=== PATIENT | female | born 2005 | race Caucasian/White ===

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

== ENCOUNTER 2023-01-10 14:09 | Emergency (ER) | payer OTHER, SELFPAY ==
[2023-01-10 14:10] VITALS: BP 109/69; PULSE 78; RESP 14; TEMP 37.1; O2SAT 99; BMI 29.0
[2023-01-10] MEDS: Ketorolac 15 MG/ML Vial IV (15:29)
[2023-01-10] MEDS: 0.9% Normal Saline (1000mL) 1,000 ML 999 ML IV (15:29)
[2023-01-10] MEDS: Metoclopramide 10 MG/2 ML Vial IV (15:30)
--- NOTE | 2023-01-10 16:46 | EX.ED.DYSGE1 ---
HPI History of Present Illness Chief Complaint: Headache Narrative Narrative: Patient presents with headache for 3 days. She has chronic recurrent cephalgia, she has a history of this this feels similar. Last headache this bad was about a year ago. He has some nausea. [facility] Medical History Asthma Encounter for screening for COVID-19 IBS (irritable bowel syndrome) Migraines Home Medications pantoprazole 20 mg tablet,delayed release 20 mg PO DAILY 07/20/18 [History Last Taken Unknown] albuterol sulfate 90 mcg/actuation aerosol inhaler 1 - 2 puff inhalation Q4H PRN PRN Wheezing 10/14/18 [History Last Taken Unknown] fexofenadine 180 mg tablet 180 mg PO DAILY 10/14/18 [History Last Taken Unknown] docusate sodium 100 mg capsule 100 mg PO BID 07/02/19 [History Last Taken Unknown] magnesium oxide 400 mg PO DAILY 07/02/19 [History Last Taken Unknown] pediatric seozvqfn-jwan-pxv 1 ea PO DAILY 07/02/19 [History Last Taken Unknown] riboflavin (vitamin B2) 100 mg tablet 2 tab PO DAILY 07/02/19 [History Last Taken Unknown] sertraline 50 mg tablet 50 mg PO DAILY 07/02/19 [History Last Taken Unknown] acetaminophen 325 mg capsule (Tylenol) 325 mg PO ONCE PRN Pain 01/30/20 [History Last Taken Unknown] cyproheptadine 4 mg tablet PO 01/30/20 [History Last Taken Unknown] dapsone 7.5 % topical gel with pump topical 01/30/20 [History Last Taken Unknown] fluticasone propionate 50 mcg/actuation nasal spray,suspension 2 spray intranasal DAILY 01/30/20 [History Last Taken Unknown] ketoconazole 2 % topical cream topical 01/30/20 [History Last Taken Unknown] lactobacillus combination no.8 3 billion cell capsule (Adult Probiotic) 3,000 mmu cells PO DAILY 01/30/20 [History Last Taken Unknown] naproxen sodium 220 mg capsule 220 mg PO BID PRN 01/30/20 [History Last Taken Unknown] norethindrone-e.estradiol triphasic 0.5 mg/0.75 mg/1 mg-35 mcg tablet 1 tab PO DAILY 01/30/20 [History Last Taken Unknown] polyethylene glycol 3350 17 gram/dose oral powder 17 g PO PRN PRN Constipation 01/30/20 [History Last Taken Unknown] sumatriptan succinate 100 mg tablet mg PO 01/30/20 [History Last Taken Unknown] dicyclomine 10 mg capsule 20 mg (2 x 10 mg) PO TIDAC #20 CAPSULES 08/23/20 [Rx Last Taken Unknown] Dupixent Pen 300 mg OTHER QWEEK 02/12/21 [History Last Taken Unknown] gabapentin 02/12/21 [History Last Taken Unknown] melatonin 3 mg PO.IVFORM DAILY 02/12/21 [History Last Taken Unknown] ketorolac 10 mg tablet 10 mg PO Q6H PRN pain 3 days #12 tabs 02/15/21 [Rx Last Taken Unknown] sucralfate 1 gram tablet (Carafate) 1 g PO Q6H #28 tabs 02/18/21 [Rx Last Taken Unknown] ketorolac 10 mg tablet 10 mg PO TID PRN pain 3 days #10 tabs 06/05/21 [Rx Last Taken Unknown] Allergy/AdvReac Type Severity Reaction Status Date / Time valproic acid Allergy Unknown PT UNSURE Verified 01/10/23 14:14 OF REACTION amitriptyline Allergy Other Verified 01/10/23 14:10 divalproex sodium Allergy Rash Verified 01/10/23 14:10 [From Depakote] grass pollen Allergy Shortness Verified 01/10/23 14:10 of breath house dust Allergy Shortness Verified 01/10/23 14:10 of breath mold Allergy Shortness Verified 01/10/23 14:10 of breath diphenhydramine AdvReac Other Verified 01/10/23 14:10 [From Benadryl] Family History Other Asthma Surgical History History of tonsillectomy and adenoidectomy Social History Smoking Status: Never smoker alcohol intake: never ROS ROS ED ROS Narrative Past medical history: Reviewed Medications: Reviewed Social history: Noncontributory Review of systems: All systems negative except as indicated General: No fever Eyes: No visual changes. Some photophobia ENT: No upper airway congestion, normal voice Neck: No neck pain Cardiovascular: No chest pain Respiratory: No shortness of breath or cough Gastrointestinal: No abdominal pain, nausea vomiting or diarrhea Genitourinary: No dysuria Musculoskeletal: Denies myalgias no difficulty with ambulation Skin: No rash Neurological: No memory loss, confusion or any focal weakness. Headache as in HPI Psych: No recent behavioral changes EXAM Physical Exam Narrative Exam Narrative: Physical exam General: Well nourished, Well developed, somewhat uncomfortable Head: Normocephalic, Atraumatic Eyes: Conjunctiva not pale. Pupils are equal and reactive. ENT: Moist mucous membranes Neck: Supple, Nontender, No lymphadenopathy Cardiovascular: Regular rate, Regular rhythm Respiratory: No distress, CTA bilaterally Abdomen: Soft, Nontender, Nondistended Back: Nontender, Normal Inspection. Negative for: CVA tenderness Extremities: Nontender, No edema Skin: Normal color, No rash Neurological: Alert, Normal Strength, Normal Sensation Const Vital Signs: 01/10/23 14:10 Temperature 98.7 F Temperature Source Temporal Pulse Rate 78 Respiratory Rate 14 Blood Pressure 109/69 Blood Pressure Mean 82 Pulse Ox 99 Oxygen Delivery Method Room Air MDM MDM MDM Narrative Medical decision making narrative: Patient has chronic recurrent cephalgia. She has a normal neurological exam. Is gradual onset. Not worried about subarachnoid hemorrhage. This is likely migraine since this is what its been diagnosed with in the past. She does not meet criteria for head CT. I talked to mom also giving some of the history she is okay with not getting any imaging. Patient received a migraine cocktail and IV fluids in the emergency department. She was reevaluated and significantly improved. She was to be discharged with this quite reasonable if any changes she is to return. Discharge Plan Triage Chief Complaint: Headache ED Provider: Brooks Romero Dx/Rx/DC Orders Clinical Impression: Headache, Migraine, Nausea Instructions: ED, Migraine (Classical) Prescriptions: No Action cyproheptadine 4 mg tablet PO acetaminophen [Tylenol] 325 mg capsule 325 mg PO ONCE PRN (Reason: Pain) sumatriptan succinate 100 mg tablet PO ketoconazole 2 % cream TOPICAL dapsone 7.5 % gel with pump TOPICAL polyethylene glycol 3350 17 gram/dose powder 17 g PO PRN PRN (Reason: Constipation) Patient Comments: TAKE 17 GRAMS DISSOLVED IN WATER BY MOUTH ONCE DAILY NEEDED FOR CONSTIPATION Adult Probiotic 3 billion cell capsule 3,000 mmu cells PO DAILY Rx Instructions: administer with a meal naproxen sodium 220 mg capsule 220 mg PO BID PRN pantoprazole 20 MG tablet 20 mg PO DAILY fexofenadine 180 MG tablet 180 mg PO DAILY albuterol sulfate 1 PUFF inhaler 1 - 2 puff inhalation Q4H PRN PRN (Reason: Wheezing) norethin-e.estradiol triphasic 0.5/0.75/1 mg- 35 mcg tablet 1 tab PO DAILY pediatric pnvwvfwt-ckza-eeo 1 EACH tablet,chewable 1 ea PO DAILY docusate sodium 100 MG capsule 100 mg PO BID sertraline 50 MG tablet 50 mg PO DAILY magnesium oxide 400 MG tablet 400 mg PO DAILY riboflavin (vitamin B2) 100 MG tablet 2 tab PO DAILY fluticasone propionate 50 mcg/actuation spray,suspension 2 spray INTRANASAL DAILY dicyclomine 10 MG capsule 20 mg PO TIDAC Qty: 20 0RF gabapentin melatonin 3 mg PO.IVFORM DAILY Dupixent Pen 300 mg OTHER QWEEK Rx Instructions: every other week ketorolac 10 mg tablet 10 mg PO Q6H PRN (Reason: pain) 3 Days Qty: 12 0RF sucralfate [Carafate] 1 gram tablet 1 g PO Q6H Qty: 28 0RF ketorolac 10 mg tablet 10 mg PO TID PRN (Reason: pain) 3 Days Qty: 10 0RF Primary Care Provider: Allyn Richardson NP Referrals: Allyn Richardson NP, SERVICE CENTER REPRESENTATIVE-C [Primary Care Provider] - 3-5 Days Disposition Disposition: Home, Self Care
== END 2023-01-10 17:01 | disposition home or self-care (01) ==
PROVIDERS: Emergency Provider Emergency Medicine; PCP Nurse Practitioner Primary Care; Visit Provider Emergency Medicine
DX: G43.909 Migraine, unspecified, not intractable, without status migrainosus (principal); R11.0 Nausea
CPT/HCPCS: 96361; 96374; 96375; J7030; A4216

== ENCOUNTER 2025-01-21 15:04 | Emergency (ER) | payer OTHER, SELFPAY ==
[2025-01-21 15:04] VITALS: BP 130/82; PULSE 115; RESP 18; TEMP 36.9; O2SAT 96
[2025-01-21 15:33] VITALS: BMI 32.6
--- NOTE | 2025-01-21 15:37 | EX.ED.DYSGE1 ---
HPI History of Present Illness Chief Complaint: Headache Narrative Narrative: Chief complaint and HPI: 19-year-old female with past medical history of migraines, anxiety, IBS presents for evaluation of migraine. Patient states her migraines always worsen in the fall. She states they are often prolonged. Patient states she has been having a waxing and waning migraine for the past 4 weeks. She has been taking her migraine medication. Last took sumatriptan yesterday. States she has been unable to get a hold of her neurologist. Associated symptoms are nausea, photophobia, occasional phonophobia. She states this feels like her typical migraine. Denies any trauma. Denies any fever, chills, URI symptoms, lightheadedness, syncope, weakness, numbness/tingling, neck pain, chest pain, shortness of breath. Review of systems: See HPI Medications: As listed on the chart Allergies: As listed on the chart PFSH: Per chart Vital signs: As listed on the chart. Reviewed. Physical exam: Gen: A&O x3, NAD but sitting with the lights off Head: Normocephalic, atraumatic Eyes: No sclera icterus, conjunctiva clear, PERRL, EOMI ENT: Moist mucous membranes Neck: Trachea midline, full range of motion CV: RRR, no murmurs Resp: Lungs CTA BL, no w/r/c Musc: Full ROM, no deformity Skin: Warm, dry Neuro: Alert, oriented, grossly intact, sensation intact Psych: Cooperative, appropriate mood and affect [facility] (Updated 01/21/25 @ 16:[address] Antonio Copeland, DO) Panic GILBERTO (generalized anxiety disorder) Encounter for screening for COVID-19 Asthma IBS (irritable bowel syndrome) Migraines Home Medications ?Medication ?Instructions ?Recorded ?Last Taken ?Type albuterol sulfate 90 mcg/actuation 1 - 2 puff inhalation Q4H PRN PRN 10/14/18 Unknown History aerosol inhaler Wheezing docusate sodium 100 mg capsule 100 mg PO BID 07/02/19 Unknown History magnesium oxide 400 mg PO DAILY 07/02/19 Unknown History riboflavin (vitamin B2) 100 mg 2 tab PO DAILY 07/02/19 Unknown History tablet acetaminophen 325 mg capsule 325 mg PO ONCE PRN Pain 01/30/20 Unknown History (Tylenol) fluticasone propionate 50 2 spray intranasal DAILY 01/30/20 Unknown History mcg/actuation nasal spray,suspension lactobacillus combination no.8 3 3,000 mmu cells PO DAILY 01/30/20 Unknown History billion cell capsule (Adult Probiotic) naproxen sodium 220 mg capsule 220 mg PO BID PRN alston 01/30/20 Unknown History norethindrone-e.estradiol 1 tab PO DAILY 01/30/20 Unknown History triphasic 0.5 mg/0.75 mg/1 mg-35 mcg tablet sumatriptan succinate 100 mg tablet mg PO 01/30/20 Unknown History Dupixent Pen 300 mg OTHER QWEEK 02/12/21 Unknown History melatonin 3 mg PO.IVFORM DAILY 02/12/21 Unknown History omeprazole 20 mg capsule,delayed 20 mg PO QDAY 08/30/24 Unknown History release rimegepant 75 mg disintegrating mg PO 08/30/24 Unknown History tablet (Nurtec ODT) buspirone 15 mg tablet 15 mg PO BID 12/06/24 Unknown History duloxetine 60 mg capsule,delayed 60 mg PO DAILY #90 caps 12/06/24 Unknown Rx release fexofenadine 180 mg tablet 180 mg PO DAILY 01/21/25 Unknown History (Bri Allergy) qjrcrcaeanrd-Wm-thtj-minerals 27 tab PO 01/21/25 Unknown History mg-0.4 mg tablet (Women's Daily Formula) Allergy/AdvReac Type Severity Reaction Status Date / Time valproic acid Allergy Unknown PT UNSURE Verified 12/06/24 11:23 OF REACTION amitriptyline Allergy Other Verified 12/06/24 11:23 divalproex sodium (From Allergy Rash Verified 12/06/24 11:23 Depakote) grass pollen Allergy Shortness Verified 12/06/24 11:23 of breath house dust Allergy Shortness Verified 12/06/24 11:23 of breath mold Allergy Shortness Verified 12/06/24 11:23 of breath diphenhydramine (From AdvReac Other Verified 12/06/24 11:23 Benadryl) Family History (Updated 01/21/25 @ 15:35 by Palak Niño) Other Anxiety Asthma Chronic abdominal pain Migraines Surgical History (Updated 03/31/24 @ 13:18 by Monalisa Hilliard) Hx of breast reduction, elective History of tonsillectomy and adenoidectomy Social History Smoking Status: Never smoker alcohol intake: never EXAM Physical Exam Const Vital Signs: 01/21/25 15:04 Temperature 98.4 F Temperature Source Oral Pulse Rate 115 H Respiratory Rate 18 Blood Pressure 130/82 H Blood Pressure Mean 98 Pulse Ox 96 Oxygen Delivery Method Room Air MDM MDM MDM Narrative Medical decision making narrative: 19-year-old female with past medical history of migraines, anxiety, IBS presents for evaluation of migraine. Patient states her migraines always worsen in the fall. She states they are often prolonged. Patient states she has been having a waxing and waning migraine for the past 4 weeks. She has been taking her migraine medication. Last took sumatriptan yesterday. States she has been unable to get a hold of her neurologist. Headache feels like her typical migraine. Denies acute onset of headache. This is neither the worst headache that she has ever experienced, nor was the onset timed with exertional activity or trauma. Patient has not experienced any fever, unusual neck pain or stiffness, syncope, or near syncope. She denies any numbness, tingling, or weakness of the extremities. I do not think any imaging or laboratory workup is needed at this time. Patient in agreement. Patient will be treated with migraine cocktail as well as Imitrex. Patient will be reevaluated. On reevaluation, patient states her headache has almost completely resolved. Patient stable to discharge home. Recommend avoiding triggers. Follow-up with neurologist and primary care physician. She confirmed understand the plan. Patient will discharge home. Impression: 1. Migraine 2. History of migraines Discharge Plan Triage Chief Complaint: Headache ED Provider: Antonio Copeland Dx/Rx/DC Orders Clinical Impression: Migraine Instructions: ED, Migraine (Classical) Prescriptions: No Action acetaminophen [Tylenol] 325 mg capsule 325 mg PO ONCE PRN (Reason: Pain) sumatriptan succinate 100 mg tablet PO Adult Probiotic 3 billion cell capsule 3,000 mmu cells PO DAILY Rx Instructions: administer with a meal naproxen sodium 220 mg capsule 220 mg PO BID PRN (Reason: alston) Nurtec ODT 75 mg tablet,disintegrating PO omeprazole 20 mg capsule,delayed release(DR/EC) 20 mg PO QDAY buspirone 15 mg tablet 15 mg PO BID duloxetine 60 mg capsule,delayed release(DR/EC) 60 mg PO DAILY Qty: 90 1RF albuterol sulfate 1 PUFF inhaler 1 - 2 puff inhalation Q4H PRN PRN (Reason: Wheezing) norethin-e.estradiol triphasic 0.5/0.75/1 mg- 35 mcg tablet 1 tab PO DAILY docusate sodium 100 MG capsule 100 mg PO BID magnesium oxide 400 MG tablet 400 mg PO DAILY riboflavin (vitamin B2) 100 MG tablet 2 tab PO DAILY fluticasone propionate 50 mcg/actuation spray,suspension 2 spray INTRANASAL DAILY melatonin 3 mg PO.IVFORM DAILY Dupixent Pen 300 mg OTHER QWEEK Rx Instructions: every other week fexofenadine [Bri Allergy] 180 mg tablet 180 mg PO DAILY Women's Daily Formula 27-0.4 mg tablet PO Primary Care Provider: Allyn Richardson NP Referrals: Follow-up with your neurologist [Other] - 3-5 Days Allyn Richardson NP, [employer] [Primary Care Provider, Family Practice] - 3-5 Days Activity Restrictions/Additional Instructions: Follow-up with your neurologist and primary care physician. Return back to ED if symptoms change or worsen. Print Language: Indonesian Disposition Disposition: Home, Self Care
--- OUTSIDE RECORDS SUMMARY | 2025-01-21 15:46 | XMS RPT_ITS | CCD ---
Author Organization [facility] Inform ion Partnership [facility] Care Team Providers Care Email Marketing Coordinator Name Role Phone DEBRA SHELL REPRINT OPERATOR-BACKEND DEVELOPER, ALLYN S Primary Care Physicia n Demian Whittaker DO Primary Care Provider MD Mando Conde Attending Unavailable No Family, Physician Primary Care Unavailable No Family, Physician Primary Care Unavailable No Family, Physician Primary Care Unavailable No Family, Physician Primary Care Unavailable Huckabay SHELL REPRINT OPERATOR-BACKEND DEVELOPER, Allyn S Primary Care Provider DEBRA SHELL REPRINT OPERATOR-BACKEND DEVELOPER, ALLYN S Primary Care Unava ilable BRODERICK CARDOZO, GILBERTO Garay Attending Unavail able MACARIO SHELL REPRINT OPERATOR-BACKEND DEVELOPER, YULIYA Mason Attending Un available DEBRA SHELL REPRINT OPERATOR-BACKEND DEVELOPER, ALLYN S Primary Care Unava ilable DEBRA SHELL REPRINT OPERATOR-BACKEND DEVELOPER, ALLYN S Attending Unava ilable DEBRA SHELL REPRINT OPERATOR-BACKEND DEVELOPER, ALLYN S Primary Care Unava ilable NAVJOT CARDOZO, DR ANTONIA Skaggs Attending Unavail able DEBRA SHELL REPRINT OPERATOR-BACKEND DEVELOPER, ALLYN S Primary Care Unava ilable DEBRA, ALLYN S Primary Care Unavailable JAILYN FELICIANO Attending Unavailable KLAUS MOSCOSO Attending Unavailable DEBRA, ALLYN S Primary Care Unavailable JAILYN FELICIANO Attending Unavailable DEBRA, ALLYN S Referring Unavailable DEBRA, ALLYN S Primary Care Unavailable Huckabay ASSISTANT BROKER, Allyn Primary Care Unavailable Dedrick Guerrero Attending Unavailable Debra ASSISTANT BROKER, Allyn Primary Care Unavailable Dedrick Guerrero Attending Unavailable Debra ASSISTANT BROKER, Allyn Primary Care Unavailable Dedrick Guerrero Attending Unavailable Huckabay ASSISTANT BROKER, Allyn Primary Care Unavailable Dedrick Guerrero Attending Unavailable DEBRA SHELL REPRINT OPERATOR-BACKEND DEVELOPER, ALLYN S Attending Unava ilable DEBRA SHELL REPRINT OPERATOR-BACKEND DEVELOPER, ALLYN S Primary Care Unava ilable DEBRA SHELL REPRINT OPERATOR-BACKEND DEVELOPER, ALLYN S Primary Care Unava ilable DEBRA SHELL REPRINT OPERATOR-BACKEND DEVELOPER, ALLYN S Attending Unava ilable Allergies Allergy Classification Reported Allergen(s) Allergy Type Date of Onset Reaction(s) Facility (11 sources) Amitriptyline; Translations: [amitriptyline] Drug Allergy 01-09-20 21 Unknown (qualifier value), Other (See Comments) [facility] (9 sources) diphenhydrAMINE; Translations: [diphenhydramine] Drug Allergy 01-09-20 21 Unknown (qualifier value) [facility] (4 sources) Grass pollen; Translations: [grass pollen] Allergy to substance 06-05-19 22 Shortness of breath [facility] (3 sources) house dust allergenic extract Drug Allergy 06-05-19 22 Shortness of breath [facility] (3 sources) Mold Extract Drug Allergy 06-05-19 22 Shortness of breath [facility] (3 sources) Valproate Drug Allergy 06-05-19 22 Rash [facility] (2 sources) Apple extract Drug Allergy 01-09-20 21 Diarrhea [facility] (2 sources) diphenhydrAMINE Drug Allergy 01-09-20 21 Other (See Comments) [facility] (3 sources) Valproate; Translations: [VALPROIC ACID] Drug Allergy 12-27-19 21 Rash [facility] Work Phone: (3 sources) Chicken Allergy; Translations: [CHICKEN ALLERGY] Propensity to adverse reactions 01-09-20 21 Diarrhea [facility] (1 source) Valproate Drug Allergy 01-11-20 23 PT UNSURE OF REACTION [facility] (1 source) Apple juice; Translations: [APPLE JUICE] Propensity to adverse reactions to drug (disorder) 01-09-20 21 [facility] Repository (1 source) Amitriptyline Drug Allergy 12-07-19 [facility] (1 source) diphenhydrAMINE Drug Allergy 12-07-19 [facility] (1 source) house dust allergenic extract Drug Allergy 12-07-19 [facility] (1 source) Mold Extract Drug Allergy 12-07-19 [facility] (1 source) Valproate Drug Allergy 12-07-19 [facility] (1 source) Valproate Drug Allergy 12-07-19 [facility] Medications Current Medications Medication Drug Class(es) Dates Sig (Normalized) Sig (Original) [id number] 200 actuat albuterol 0.09 mg/actuat metered dose inhaler (12 sources) beta2-Adrenergic Agonist Start: 10-27-2019 take 2 puff(s) by inhalation every four hours as needed for wheezing ProAir HFA MDI (90 mcg/inh) inhalation aerosol 2 puff(s), Inhalation, q4h, PRN as needed for wheezing, # 8.5 gram(s), 0 Refill(s) Start Date: 10/27/19 Status: Ordered Medication Dispense Status: Completed Quantity: 8.5 Unit: g Total Allowed Fills: 1 Fills Dispensed: 0 Start: 10-27-2019 take 2 puff(s) by in halation every four hours as needed for wheezing ProAir HFA MDI (90 mcg/inh) inhalation aerosol 2 puff(s), Inhalation, q4h, PRN as needed for wheezing, # 8.5 gram(s), 0 Refill(s) Start Date: 10/27/19 Status: Ordered Start: 10-14-2018 take 1 puff(s) by in halation every four hours as needed Albuterol Sulfate Active 1 - 2 PUFF INHALATION EVERY 4 HOURS NEEDED October 14, 2018 12:00am albuterol (PROAI R RESPICLICK) 108 (90 Base) MCG/ACT inhaler Inhale into the lungs every 6 hours as needed for Wheezing 0 Active ALBUTEROL INHALA TION Inhale as instructed. 0 Active Comment on above: Inhale as instructed . Bri Allergy (2 sources) Start: 9 take 1 dose by mouth once daily Bri Allergy Dose : 180 mg =, Oral, qDay, 0 Refill(s) Start Date: 03/01/19 Status: Ordered busPIRone hydrochloride 15 mg oral tablet (6 sources) Start: 4 End: busPIRone 15 mg oral tablet Dose : 15 mg = 1 tab(s), Oral, BID, # 180 tab(s), 3 Refill(s), Pharmacy: [facility], 168, cm, 10/04/24 11:34:00 EDT, Height, kg, 10/04/24 11:43:00 EDT, Dosing Weight Start Date: 11/29/24 Stop Date: 11/24/25 Status: Ordered Medication Dispense Status: Completed Quantity: 180.0 Unit: tab(s) Total Allowed Fills: 4 Fills Dispensed: 0 Start: 05-29-2021 End: 05-24-2022 busPIRone 10 mg oral tablet Dose : 10 mg = 1 tab(s), Oral, BID, # 180 tab(s), 3 Refill(s), Pharmacy: [facility]/pharmacy #[id number], 166, cm, 04/23/21 14:18:00 EST, Height, kg, 04/23/21 14:18:00 EST, Dosing Weight Start Date: 05/29/21 Stop Date: 05/24/22 Status: Ordered cetirizine hydrochloride 10 mg oral tablet (2 sources) Histamine-1 Receptor Antagonist Start: 08-11-2024 take 1 mg by mouth once daily Zyrtec 10 mg oral tablet mg = tab(s), Oral, qDay, 0 Refill(s) Start Date: 08/11/24 Status: Ordered Medication Dispense Status: Completed Total Allowed Fills: 1 Fills Dispensed: 0 Clascoterone (WINLEVI) 1 % CREA (1 source) Clascoterone (WINLEVI) 1 % CREA Apply to affected area 0 Active Dapsone (5 sources) Sulfone Start: 04-22-2020 apply 1 dose topically once daily Aczone 7.5% topical gel Dose = 1 estee, Topical, qDay, # 60 gram(s), 0 Refill(s) Start Date: 04/22/20 Status: Ordered Start: 01-30-2020 Dapsone Active TOPICAL January 30, 2020 12:00am Bentyl (9 sources) Anticholinergic Start: 11-28-2020 Bentyl mg =, 0 Refill(s) Start Date: 11/28/20 Status: Ordered Start: 08-27-2020 take 2 capsules by m outh three times daily as needed for pain dicyclomine (BENTYL) 10 MG capsule Take 2 Capsules (20 mg) by mouth 3 times daily as needed (pain) 120 Capsule 3 08/27/2020 Active Start: 08-23-2020 take 20 mg by mouth three times daily before mealtime Dicyclomine Active 20 MG PO THREE TIMES DAILY BEFORE MEALS August 23, 2020 12:00am docusate sodium 100 mg oral capsule (11 sources) Start: 07-04-2021 Colace 100 mg oral capsule See Instructions, 100mg every morning 100mg Thursday, , Thursday nights 200mg Thursday, Thursday, Thursday, Thursday nights, # 216 cap(s), 3 Refill(s), Pharmacy: [facility]/pharmacy #[id number], 166, cm, 04/23/21 14:18:00 EST, Height, kg, 04/23/21 14:18:00 EST, Dosing Weight Start Date: 07/04/21 Status: Ordered Medication Dispense Status: Completed Quantity: 216.0 Unit: cap(s) Total Allowed Fills: 4 Fills Dispensed: 0 Start: 07-02-2019 take 100 mg by mouth twice altagracia ly Docusate Sodium Active 100 MG PO TWICE A DAY July 02, 2019 12:00am DULoxetine 60 mg delayed release oral capsule (2 sources) Serotonin and Norepinephrine Reuptake Inhibitor Start: 08-11-2024 take 1 mg by mouth once daily Cymbalta 60 mg oral delayed release capsule mg = cap(s), Oral, qDay, 0 Refill(s) Start Date: 08/11/24 Status: Ordered Medication Dispense Status: Completed Total Allowed Fills: 1 Fills Dispensed: 0 2 ml dupilumab 150 mg/ml prefilled syringe (6 sources) Interleukin-4 Receptor alpha Antagonist Start: 01-20-2020 inject 1 dose by subcutaneous injection every other week Dupixent 300 mg/2 mL subcutaneous solution Dose : 300 mg = 2 mL, Subcutaneous, q2wk, rotate injection sites, # 4 mL, 0 Refill(s) Start Date: 04/22/20 Status: Ordered Medication Dispense Status: Completed Quantity: 4.0 Unit: mL Total Allowed Fills: 1 Fills Dispensed: 0 Dupixent 300 mg/2 mL subcutaneous solution (2 sources) Start: 04-22-2020 inject 1 dose by subcutaneous injection every other week Dupixent 300 mg/2 mL subcutaneous solution Dose : 300 mg = 2 mL, Subcutaneous, q2wk, rotate injection sites, # 4 mL, 0 Refill(s) Start Date: 04/22/20 Status: Ordered Dupixent Pen (3 sources) Start: 02-12-2021 Dupixent Pen Active 300 MG OTHER EVERY WEEK February 12, 2021 12:00am every other week {21 (Ethinyl Estradiol 0.03 MG / Levonorgestrel 0.15 MG Oral Tablet) / 7 (Inert Ingredients 1 MG Oral Tablet) } Pack [Cher Day] (5 sources) Progestin, Estrogen, Progestin-containin g Intrauterine Device Start: 08-11-2024 take 1 tablet by mouth once daily [employer] 0.15 mg-30 mcg oral tablet Dose = 1 tab(s), Oral, Daily, # 28 tab(s), 11 Refill(s), Pharmacy: [facility], 168.6, cm, 08/11/24 8:20:00 EDT, Height, kg, 08/11/24 8:20:00 EDT, Dosing Weight Start Date: 08/11/24 Status: Ordered Medication Dispense Status: Completed Quantity: 28.0 Unit: tab(s) Total Allowed Fills: 12 Fills Dispensed: 0 Start: 08-11-2024 take 1 tablet by hannah th once daily Cher 0.15 mg-30 mcg oral tablet Dose = 1 tab(s), Oral, Daily, # 28 tab(s), 11 Refill(s), Pharmacy: [facility], 168.6, cm, 08/11/24 8:20:00 EDT, Height, kg, 08/11/24 8:20:00 EDT, Dosing Weight Start Date: 08/11/24 Status: Ordered Quantity: 28.0 Unit: tab(s) Repeat number: 12 Start: 11-15-2021 take 1 tablet by hannah th twice daily, then take 1 tablet by mouth once daily Sronyx 100 mcg-20 mcg oral tablet TAKE ONE TABLET TWICE DAILY UNTIL BLEEDING STOPS, THEN TAKE ONE TABLET PER DAY. Start Date: 11/15/21 Status: Ordered take 0.1-20 tablets by mouth once levonorgestrel-ethinyl estradiol (AVIANE) 0.1-20 MG-MCG per tablet Take 1 Tablet by mouth daily 0 Active Norethin-E.Estradiol Triphasic (7 sources) Estrogen Start: 01-30-2020 take 1 tablet by mouth once daily Norethin-E.Estradiol Triphasic Active 1 TABLET PO DAILY January 30, 2020 11:42am Start: 12-27-2018 Pirmella 1/35 oral tablet 0 Refill(s) Start Date: 12/27/18 Status: Ordered Start: 10-14-2018 End: 01-30-2020 Norethin-E.Estradiol Triphas ic Discontinued 1 EACH PO DAILY October 14, 2018 12:00am January 30, 2020 11:54am fexofenadine hydrochloride 180 mg oral tablet (7 sources) Histamine-1 Receptor Antagonist Start: 10-14-2018 take 180 mg by mouth once daily Fexofenadine Active 180 MG PO DAILY October 14, 2018 12:00am Flonase 50 mcg/inh nasal spray (2 sources) Start: 12-27-2018 take 1 dose nasal route once daily in the morning Flonase 50 mcg/inh nasal spray Dose = 2 spray(s), Nostril, each, qAM, 0 Refill(s) Start Date: 12/27/18 Status: Ordered fluticasone propionate 0.05 mg/actuat metered dose nasal spray (12 sources) Corticosteroid Start: 07-02-2019 End: 01-30-2020 Fluticasone Propionate Active 2 SPRAY INTRANASAL DAILY January 30, 2020 11:41am Start: 12-27-2018 take 1 dose nasal ro kletsel dehe wintun once daily in the morning as needed Flonase 50 mcg/inh nasal spray Dose = 2 spray(s), Nostril, each, qAM, PRN Allergy symptoms, 0 Refill(s) Start Date: 12/27/18 Status: Ordered Medication Dispense Status: Completed Total Allowed Fills: 1 Fills Dispensed: 0 fluticasone (JAE NASE) 50 MCG/ACT nasal spray 2 Sprays by Each Nare route as needed for Allergies 0 Active gabapentin 300 mg oral capsule (7 sources) Anti-epileptic Agent Start: 12-20-2021 take 1 capsule by mouth twice daily gabapentin (NEURONTIN) 300 MG capsule Take 1 Capsule (300 mg) by mouth 2 times daily 60 Capsule 5 12/20/2021 Active Start: 04-03-2021 gabapentin 300 mg oral capsule Dose : 300 mg = 1 cap(s), Oral, BID, # 60 cap(s), 0 Refill(s), 74.9 Start Date: 04/03/21 Status: Ordered Start: 02-12-2021 gabapentin Act sedrick February 12, 2021 12:00am High Potency Multivitamin or al tablet (4 sources) Start: 08-20-2021 High Potency M ultivitamin oral tablet See Instructions, RenewLife Ultimate Beba Extra Care Probiotic 1 tablet daily, # 90 tab(s), 3 Refill(s), Pharmacy: [facility]/pharmacy #[id number], 166, cm, 04/23/21 14:18:00 EST, Height, kg, 04/23/21 14:18:00 EST, Dosing Weight Start Date: 08/20/21 Status: Ordered Medication Dispense Status: Completed Quantity: 90.0 Unit: tab(s) Total Allowed Fills: 4 Fills Dispensed: 0 Start: 08-20-2021 High Potency M ultivitamin oral tablet See Instructions, RenewLife Ultimate Beba Extra Care Probiotic 1 tablet daily, # 90 tab(s), 3 Refill(s), Pharmacy: [facility]/pharmacy #[id number], 166, cm, 04/23/21 14:18:00 EST, Height, kg, 04/23/21 14:18:00 EST, Dosing Weight Start Date: 08/20/21 Status: Ordered Quantity: 90.0 Unit: tab(s) Repeat number: 4 Start: 08-20-2021 take 1 tablet by hannah once daily High Potency Multivitamin oral tablet See Instructions, RenewLife Ultimate Beba Extra Care Probiotic 1 tablet daily, # 90 tab(s), 3 Refill(s), Pharmacy: [facility]/pharmacy #[id number], 166, cm, 04/23/21 14:18:00 EST, Height, kg, 04/23/21 14:18:00 EST, Dosing Weight Start Date: 08/20/21 Status: Ordered hydrOXYzine hydrochloride 25 mg oral tablet (2 sources) Antihistamine Start: 04-03-2021 hydrOXYzine hydrochloride 25 mg oral tablet Dose : 25 mg = 1 tab(s), Oral, QID, PRN as needed for anxiety, # 40 tab(s), 0 Refill(s) Start Date: 04/03/21 Status: Ordered ketoconazole 20 mg/ml topical cream (3 sources) Azole Antifungal Start: 01-30-2020 Ketoconazole Active TOPICAL January 30, 2020 12:00am ketorolac tromethamine 10 mg oral tablet (6 sources) Nonsteroidal Anti-inflammatory Drug, Cyclooxygenase Inhibitor Start: 06-05-2021 take 10 mg by mouth three times daily Ketorolac Active 10 MG PO THREE TIMES A DAY 10 June 05, 2021 1:00am Start: 02-15-2021 take 10 mg by mouth every six hours Ketorolac Active 10 MG PO EVERY 6 HOURS 03 22February 15, 2021 12:00am Lactobacillus acidophilus (2 sources) Lactobacillus (P ROBIOTIC ACIDOPHILUS PO) Take by mouth daily 0 Active Lactobacillus Combination No.8 (Adult Probiotic) 3 billion cell capsule (3 sources) Start: 01-30-2020 take 3 capsules by mouth once daily Lactobacillus Combination No.8 (Adult Probiotic) 3 billion cell capsule Active 3000 MMU CELLS PO DAILY January 30, 2020 12:00am administer with a meal magnesium oxide 400 mg oral tablet (10 sources) Start: 06-21-2019 magnesium oxide 400 mg (240 mg elemental magnesium) oral tablet Dose : 400 mg = 1 tab(s), Oral, qDay, # 100 tab(s), 0 Refill(s) Start Date: 06/21/19 Status: Ordered Medication Dispense Status: Completed Quantity: 100.0 Unit: tab(s) Total Allowed Fills: 1 Fills Dispensed: 0 melatonin 5 mg oral tablet (11 sources) Start: 12-03-2022 Melatonin 5 mg oral tablet Dose : 5 mg = 1 tab(s), Oral, qHS, PRN as needed for insomnia, # 60 tab(s), 0 Refill(s) Start Date: 12/03/22 Status: Ordered Medication Dispense Status: Completed Quantity: 60.0 Unit: tab(s) Total Allowed Fills: 1 Fills Dispensed: 0 Start: 11-28-2020 melatonin qHS, 0 Refill(s) Start Date: 11/28/20 Status: Ordered Start: 08-29-2020 End: 06-29-2022 take 3 mg by mouth once daily melatonin Active 3 MG PO .IVFORM DAILY February 12, 2021 12:00am Multiple Vitamins-Iron (MULTIVITAMIN/IRON PO) (2 sources) Multiple Vitamin s-Iron (MULTIVITAMIN/IRON PO) Take by mouth daily 0 Active Multivitamin preparation (1 source) Start: 2024 take 1 tablet by mouth once daily Multivitamin Dose = 1 tab(s), Oral, Daily, with iron, 0 Refill(s) Start Date: 12/07/24 Status: Ordered Medication Dispense Status: Completed Total Allowed Fills: 1 Fills Dispensed: 0 Multivitamin with Iron (4 sources) Start: 2019 take 1 tablet by mouth once daily Multivitamin with Iron Dose = 1 tab(s), Oral, Daily, 0 Refill(s) Start Date: 04/21/19 Status: Ordered Naproxen (9 sources) Nonsteroidal Anti-inflammatory Drug Start: 2020 naproxen naproxen, 0 Refill(s), 66 Start Date: 11/28/20 Status: Ordered Medication Dispense Status: Completed Total Allowed Fills: 1 Fills Dispensed: 0 Start: 11-28-2020 naproxen napro xen, 0 Refill(s), 66 Start Date: 11/28/20 Status: Ordered Repeat number: 1 Start: 11-28-2020 naproxen napro xen, 0 Refill(s), 66 Start Date: 11/28/20 Status: Ordered Start: 01-30-2020 take 220 mg by mouth twice daily Naproxen Sodium Active 220 MG PO TWICE A DAY January 30, 2020 12:00am omeprazole 20 mg oral tablet (2 sources) Proton Pump Inhibitor Start: 08-20-2023 take 1 dose by mouth once daily omeprazole Dose : 20 mg =, Oral, qDay, 0 Refill(s) Start Date: 08/20/23 Status: Ordered Medication Dispense Status: Completed Total Allowed Fills: 1 Fills Dispensed: 0 ondansetron 4 mg disintegrating oral tablet (7 sources) Serotonin-3 Receptor Antagonist Start: 04-22-2020 ondansetron 4 mg oral tablet, disintegrating Dose : 4 mg = 1 tab(s), Oral, q4hr, PRN Nausea/Vomiting, # 10 tab(s), 0 Refill(s) Start Date: 04/22/20 Status: Ordered Medication Dispense Status: Completed Quantity: 10.0 Unit: tab(s) Total Allowed Fills: 1 Fills Dispensed: 0 Start: 12-30-2019 Zofran 4 mg or al tablet Dose : 4 mg = 1 tab(s), Oral, q6h, PRN Nausea/Vomiting, # 10 tab(s), 0 Refill(s), Cephalgia Start Date: 12/30/19 Status: Ordered ondansetron 4 mg oral tablet, disintegrating (2 sources) Start: 04-22-2020 ondansetron 4 mg oral tablet, disintegrating Dose : 4 mg = 1 tab(s), Oral, q4hr, PRN Nausea/Vomiting, # 10 tab(s), 0 Refill(s) Start Date: 04/22/20 Status: Ordered pantoprazole 20 mg delayed release oral tablet (9 sources) Proton Pump Inhibitor Start: 07-20-2018 take 20 mg by mouth once daily Pantoprazole Active 20 MG PO DAILY July 20, 2018 12:00am Pediatric Clpqhjft-Pete-Sps (3 sources) Start: 07-02-2019 Pediatric Muaaadhn-Nmjl-Vsj Active 1 EACH PO DAILY July 02, 2019 12:00am Pirmella 1/35 oral tablet (2 sources) Start: 12-27-2018 Pirmella 1/35 oral tablet 0 Refill(s) Start Date: 12/27/18 Status: Ordered polyethylene glycol 3350 33813 mg powder for oral solution (3 sources) Osmotic Laxative Start: 01-30-2020 Polyethylene Glycol 3350 Active 17 GM PO NEEDED January 30, 2020 12:00am Probiotic (2 sources) Start: 02-15-2019 Probiotic Oral, BID, 0 Refill(s) Start Date: 02/15/19 Status: Ordered riboflavin 100 mg oral tablet (10 sources) Start: 10-25-2021 take 2 tablets by mouth twice daily vitamin B-2 (RIBOFLAVIN) 100 MG tablet Take 2 Tablets (200 mg) by mouth 2 times daily 120 Tablet 11 10/25/2021 Active Start: 07-02-2019 take 2 tablets by [facility] once daily Riboflavin (Vitamin B2) Active 2 TABLET PO DAILY July 02, 2019 12:00am Start: 06-21-2019 take 1 mg by mouth twice daily riboflavin 100 mg oral tablet mg = tab(s), Oral, BID, 0 Refill(s) Start Date: 06/21/19 Status: Ordered Medication Dispense Status: Completed Total Allowed Fills: 1 Fills Dispensed: 0 rimegepant 75 mg disintegrating oral tablet (2 sources) Start: 09-15-2024 Nurtec ODT 75 mg oral tablet, disintegrating Dose : 75 mg = 1 tab(s), Oral, Every other day, 0 Refill(s) Start Date: 09/15/24 Status: Ordered Medication Dispense Status: Completed Total Allowed Fills: 1 Fills Dispensed: 0 sertraline 100 mg oral tablet (9 sources) Serotonin Reuptake Inhibitor Start: 01-24-2021 End: 06-29-2022 sertraline 100 mg oral tablet Dose : 150 mg = 1.5 tab(s), Oral, qDay, # 135 tab(s), 3 Refill(s), Pharmacy: [facility]/pharmacy #[id number], 166, cm, 04/23/21 14:18:00 EST, Height, kg, 04/23/21 14:18:00 EST, Dosing Weight Start Date: 07/04/21 Stop Date: 06/29/22 Status: Ordered Start: 07-31-2020 sertraline (ZO LOFT) 100 MG tablet Take 1.5 Tablets (150 mg) by mouth 0 07/31/2020 Active Start: 07-02-2019 take 50 mg by mouth once daily Sertraline Active 50 MG PO DAILY July 02, 2019 12:00am spironolactone 50 mg oral tablet (2 sources) Aldosterone Antagonist Start: 10-03-2021 spironolactone 50 mg oral tablet Dose : 50 mg = 1 tab(s), Oral, qHS, 0 Refill(s) Start Date: 10/03/21 Status: Ordered sucralfate 1000 mg oral tablet (3 sources) Aluminum Complex Start: 02-18-2021 take 1 tablet by mouth every six hours Sucralfate (Carafate) 1 gram tablet Active 1 GM PO EVERY 6 HOURS February 18, 2021 12:00am SUMAtriptan 100 mg oral tablet (7 sources) Serotonin-1b and Serotonin-1d Receptor Agonist Start: 09-15-2024 SUMAtriptan 100 mg oral tablet 0 Refill(s) Start Date: 09/15/24 Status: Ordered Medication Dispense Status: Completed Total Allowed Fills: 1 Fills Dispensed: 0 Start: 01-30-2020 Sumatriptan Wilde ccinate Active MG PO January 30, 2020 12:00am Start: 10-27-2019 take 1 tablet by hannah th every twenty-four hours SUMAtriptan 100 mg oral tablet Dose : 100 mg = 1 tab(s), Oral, qDay, PRN as needed for migraine headache, may repeat dose after 2 hours up to a maximum of 200 mg in 24 hours, # 18 tab(s), 0 Refill(s) Start Date: 10/27/19 Status: Ordered triamcinolone acetonide 1 mg/ml topical cream (2 sources) Corticosteroid triamcinolone (K ENALOG) 0.1 % cream Apply to affected area 3 times daily As needed 2 weeks on and 2 weeks off 0 Active ubrogepant 100 mg oral tablet (3 sources) Start: 10-25-2021 Ubrogepant 100 MG TABS Take one at onset of migraine. Repeat once if no better in 2 hours. 10 Tablet 5 10/25/2021 Active Start: 10-03-2021 take 1 mg by mouth o nce as needed for headache Ubrelvy 50 mg oral tablet mg = tab(s), Oral, Once, PRN as needed for migraine headache, 0 Refill(s) Start Date: 10/03/21 Status: Ordered Completed/Discontinued Medications Medication Drug Class(es) Dates Sig (Normalized) Sig (Original) acetaminophen 500 mg oral tablet (12 sources) Start: 04-16-2022 End: 04-16-2022 acetaminophen (TYLENOL) tablet 1,000 mg Start: 11-28-2020 acetaminophen 0 Refill(s) Start Date: 11/28/20 Status: Ordered Medication Dispense Status: Completed Total Allowed Fills: 1 Fills Dispensed: 0 Start: 11-28-2020 acetaminophen 0 Refill(s) Start Date: 11/28/20 Status: Ordered Repeat number: 1 Start: 11-28-2020 acetaminophen 0 Refill(s) Start Date: 11/28/20 Status: Ordered Start: 01-30-2020 take 1 capsule by mouth once A cetaminophen (Tylenol) 325 mg capsule Active 325 MG PO ONCE January 30, 2020 12:00am take 1 tablet by hannah th every six hours as needed for pain acetaminophen (TYLENOL) 500 MG tablet Take 1 Tablet (500 mg) by mouth every 6 hours as needed for Pain 0 Active Beclomethasone (1 source) Corticosteroid BECLOMETHASONE DIPROPIONATE (QVAR INHALATION) Inhale as instructed. 0 Active Comment on above: Inhale as instructed . calcium chloride 0.0014 meq/ml / potassium chloride 0.004 meq/ml / sodium chloride 0.103 meq/ml / sodium lactate 0.028 meq/ml injectable solution (1 source) Start: 04-16-2022 End: 04-16-2022 Lactated Ringers IV cyproheptadine hydrochloride 4 mg oral tablet (10 sources) Start: 04-03-2021 End: 04-12-2021 cyproheptadine 4 mg oral tablet Dose : 6 mg = 1.5 tab(s), Oral, qDay, # 30 tab(s), 0 Refill(s) Start Date: 04/03/21 Stop Date: 04/12/21 Status: Ordered Quantity: 30.0 Unit: tab(s) Repeat number: 1 Start: 01-30-2020 take 1.5 tablets by mouth once daily at bedtime cyproheptadine (PERIACTIN) 4 MG tablet TAKE 1.5 TAB ETS BY MOUTH EVERY DAY BEDTIME 45 Tablet 6 11/18/2021 Active Start: 12-27-2018 cyproheptadine 4 mg oral tablet Dose : 4 mg = 1 tab(s), Oral, BID, 0 Refill(s) Start Date: 12/27/18 Status: Ordered doxycycline monohydrate 50 mg oral tablet (3 sources) Tetracycline-class Drug Start: 10-14-2018 End: 01-30-2020 take 100 mg by mouth once daily Doxycycline Monohydrate Discontinued 100 MG PO DAILY October 14, 2018 12:00am January 30, 2020 11:41am montelukast 5 mg chewable tablet (1 source) Leukotriene Receptor Antagonist take 1 tablet by mouth once daily at bedtime montelukast chewable (SINGULAIR) 5 mg chewable tablet Take 5 mg by mouth daily at bedtime. 0 Active Comment on above: Take 5 mg by mouth d aily at bedtime. oxyCODONE hydrochloride 5 mg oral tablet (2 sources) Opioid Agonist Start: 04-16-2022 End: 04-19-2022 oxyCODONE (immediate release) (ROXICODONE) tablet 5 mg propranolol hydrochloride 20 mg oral tablet (3 sources) beta-Adrenergic Mahendra Start: 07-02-2019 End: 01-30-2020 take 20 mg by mouth once daily Propranolol Discontinued 20 MG PO DAILY July 02, 2019 12:00am January 30, 2020 11:49am sulfamethoxazole 800 mg / trimethoprim 160 mg oral tablet (3 sources) Dihydrofolate Reductase Inhibitor Antibacterial, Sulfonamide Antimicrobial Start: 01-30-2020 End: 04-30-2020 Sulfamethoxazole -Trimethoprim Discontinued PO January 30, 2020 12:00am April 30, 2020 5:16pm topiramate 25 mg oral tablet (3 sources) Start: 07-02-2019 End: 01-30-2020 take 25 mg by mouth once daily Topiramate Discontinued 25 MG PO DAILY July 02, 2019 12:00am January 30, 2020 11:49am Problems Active Problems Problem Classification Problem Date Documented Da te Episodic/Chronic Abdominal pain (19 sources) Abdominal pain; Translations: [Functional abdominal pain syndrome] Onset: 9 06-21-2019 Episodic Acute bronchitis (1 source) Acute bronchitis, unspecified; Translations: [Acute bronchitis, unspecified] Onset: 2 Episodic Administrative/social admission (1 source) Reduced mobility; Translations: [Other reduced mobility] Episodic Allergic reactions (8 sources) Eczema; Translations: [Dermatitis, unspecified] Onset: 2 12-27-2018 Episodic Anxiety disorders (12 sources) Anxiety; Translations: [Generalized anxiety disorder] Onset: 9 12-27-2018 Chronic Asthma (6 sources) Asthma 03-02-2017 Chronic Esophageal disorders (5 sources) Gastroesophageal reflux disease; Translations: [Gastro-esophageal reflux disease without esophagitis] Onset: 1 Resolved: 2 04-11-2022 Chronic Gastritis and duodenitis (3 sources) Gastritis; Translations: [Gastritis, unspecified, without bleeding] 02-26-2021 Episodic Headache; including migraine (16 sources) Migraine; Translations: [Migraine, unspecified, not intractable, without status migrainosus] Onset: 0 Resolved: 1 01-08-2021 Chronic Headache; including migraine (9 sources) Chronic headache disorder; Translations: [Headache] Onset: 9 Resolved: 1 03-01-2019 Episodic Immunizations and screening for infectious disease (3 sources) Patient encounter status; Translations: [Encounter for screening for COVID-19] 12-26-2020 Episodic Malaise and fatigue (3 sources) Fatigue; Translations: [Other fatigue] Onset: 5 12-07-2024 Episodic Menstrual disorders (8 sources) Menorrhagia; Translations: [Dysmenorrhea] 12-27-2018 Chronic Mood disorders (2 sources) Depressive disorder; Translations: [Depression] Onset: 9 03-30-2019 Chronic Nausea and vomiting (4 sources) Nausea; Translations: [Nausea] 01-10-2023 Episodic Other gastrointestinal disorders (2 sources) Irritable bowel syndrome; Translations: [Irritable bowel syndrome without diarrhea] Onset: 2 04-11-2022 Chronic Other gastrointestinal disorders (4 sources) Constipation 06-21-2019 Episodic Other nutritional; endocrine; and metabolic disorders (1 source) Weight increased 12-07-2024 Episodic Other nutritional; endocrine; and metabolic disorders (2 sources) Abnormal weight gain; Translations: [Abnormal weight gain] Onset: 5 Episodic Other screening for suspected conditions (not mental disorders or infectious disease) (6 sources) Special examination status; Translations: [Encounter for screening for malignant neoplasm of cervix] Onset: 5 10-27-2019 Episodic Other upper respiratory disease (6 sources) Seasonal allergy 12-27-2018 Chronic Other upper respiratory infections (1 source) Sinusitis 08-11-2024 Chronic Other upper respiratory infections (6 sources) Acute pharyngitis; Translations: [Acute maxillary sinusitis, unspecified] Onset: 2 07-15-2019 Episodic Sprains and strains (4 sources) Strain of muscle and/or tendon of thigh 11-29-2020 Episodic Unclassified (14 sources) Patient encounter status 11-29-2020 Unclassified (1 source) Contact with and (suspected) exposure to covid-19; Translations: [Contact with and (suspected) exposure to covid-19] Onset: 2 Unclassified (2 sources) Cancer cervix screening status 10-04-2024 Urinary tract infections (2 sources) Urinary tract infectious disease 06-21-2019 Episodic Past or Other Problems Problem Classification Problem Date Documented Da te Episodic/Chronic Nonmalignant breast conditions (10 sources) Hypertrophy of breast; Translations: [Large breast] Onset: 02-04-2021 11-29-2020 Episodic Other gastrointestinal disorders (2 sources) Slow transit constipation; Translations: [Slow transit constipation] Onset: 06-29-2020 Resolved: 08-12-2020 08-12-2020 Episodic Results Test Name Value Interpretation Reference Range Facility .GFRon 12-08-2024 Estimated Glomerular Filtration Rate 92 ml/min/1.73sqm Normal [facility] Comment on above: Result Comment: Stages of Chronic Kidney Disease (CKD) Stage Description eGFR(ml/min/1.73 sq.m.) CKD 1 Normal kidney function or >=90 normal kindney function with possible kidney damage (ex. Proteinuria) CKD 2 Kidney damage with mild loss 60-89 of kidney function CKD 3a Mild to moderate loss of kidney 45-59 function CKD 3b Moderate to severe loss of 30-44 of kindey function CKD 4 Severe loss of kidney function 15-29 CKD 5 Kidney failure <15 Note: (go live 2024) the eGFR calculation was updated to the 2020 CKD-EPI creatinine equation without a race factor to calculate the eGFR results. Performed By: #### A JAZMINE, CBC, FERR, FE, TSH, VIDH, ADIFF, GFR, FT4, CMP #### [address] [id number] CMPon 12-08-2024 Albumin Level 3.8 G/dL Normal 3.5-5.0 [facility] Comment on above: Performed By: #### A JAZMINE, CBC, FERR, FE, TSH, VIDH, ADIFF, GFR, FT4, CMP #### [address] [address] Albumin/Globulin [Mass ratio] 1.1 {ratio} Normal 1.1-2.5 [facility] Comment on above: Performed By: #### A JAZMINE, CBC, FERR, FE, TSH, VIDH, ADIFF, GFR, FT4, CMP #### [place] [address] ALP [Catalytic activity/Vol] 84 U/L Normal 40-135 [facility] Comment on above: Performed By: #### A JAZMINE, CBC, FERR, FE, TSH, VIDH, ADIFF, GFR, FT4, CMP #### [place] [address] ALT [Catalytic activity/Vol] 40 U/L Normal 14-59 [facility] Comment on above: Performed By: #### A JAZMINE, CBC, FERR, FE, TSH, VIDH, ADIFF, GFR, FT4, CMP #### [place] [address] AST [Catalytic activity/Vol] 25 U/L Normal 10-40 [facility] Comment on above: Performed By: #### A JAZMINE, CBC, FERR, FE, TSH, VIDH, ADIFF, GFR, FT4, CMP #### [place] [address] Bili Total 0.4 mg/dL Normal 0.2-1.0 [facility] Comment on above: Result Comment: Use of this assay is not recommended for patients undergoing treatment with eltrombopag due to the potential for falsely elevated results. Performed By: #### A JAZMINE, CBC, FERR, FE, TSH, VIDH, ADIFF, GFR, FT4, CMP #### [place] [address] BUN/Creatinine Ratio 14 ratio Normal 7-27 [facility] Comment on above: Performed By: #### A JAZMINE, CBC, FERR, FE, TSH, VIDH, ADIFF, GFR, FT4, CMP #### [place] [address] Calcium [Mass/Vol] 9.5 mg/dL Normal 8.4-10.2 [facility] Comment on above: Performed By: #### A JAZMINE, CBC, FERR, FE, TSH, VIDH, ADIFF, GFR, FT4, CMP #### [address] [address] Chloride [Moles/Vol] 104 mmol/L Normal 98-107 [facility] Comment on above: Performed By: #### A JAZMINE, CBC, FERR, FE, TSH, VIDH, ADIFF, GFR, FT4, CMP #### [address] [address] CO2 [Moles/Vol] 26 mmol/L Normal 22-29 [facility] Comment on above: Performed By: #### A JAZMINE, CBC, FERR, FE, TSH, VIDH, ADIFF, GFR, FT4, CMP #### [place] [address] Creatinine [Mass/Vol] 0.91 mg/dL Normal 0.51-0.95 [facility] Comment on above: Performed By: #### A JAZMINE, CBC, FERR, FE, TSH, VIDH, ADIFF, GFR, FT4, CMP #### [address] [address] Electrolyte Balance 9.0 mEq/L Normal 4.0-15.0 [facility] Comment on above: Performed By: #### A JAZMINE, CBC, FERR, FE, TSH, VIDH, ADIFF, GFR, FT4, CMP #### [address] [address] Globulin 3.6 G/dL Normal 2.7-4.4 [facility] Comment on above: Performed By: #### A JAZMINE, CBC, FERR, FE, TSH, VIDH, ADIFF, GFR, FT4, CMP #### [address] [address] Glucose [Mass/Vol] 83 mg/dL Normal 70-105 [facility] Comment on above: Performed By: #### A JAZMINE, CBC, FERR, FE, TSH, VIDH, ADIFF, GFR, FT4, CMP #### [address] [address] Potassium [Moles/Vol] 3.7 mmol/L Normal 3.5-5.1 [facility] Comment on above: Performed By: #### A JAZMINE, CBC, FERR, FE, TSH, VIDH, ADIFF, GFR, FT4, CMP #### [address] [address] Sodium [Moles/Vol] 139 mmol/L Normal 136-145 [facility] Comment on above: Performed By: #### A JAZMINE, CBC, FERR, FE, TSH, VIDH, ADIFF, GFR, FT4, CMP #### [address] [address] Total Protein 7.4 G/dL Normal 6.4-8.2 [facility] Comment on above: Performed By: #### A JAZMINE, CBC, FERR, FE, TSH, VIDH, ADIFF, GFR, FT4, CMP #### [address] [address] Urea nitrogen [Mass/Vol] 13 mg/dL Normal 7-18 [facility] Comment on above: Performed By: #### A JAZMINE, CBC, FERR, FE, TSH, VIDH, ADIFF, GFR, FT4, CMP #### [address] [address] FEon 12-08-2024 Iron [Mass/Vol] 98 ug/dL Normal 50-170 [facility] Comment on above: Performed By: #### A JAZMINE, CBC, FERR, FE, TSH, VIDH, ADIFF, GFR, FT4, CMP #### [address] [address] Nehemiah 12-08-2024 Ferritin [Mass/Vol] 71.0 ng/mL Normal 8.0-252.0 [facility] Comment on above: Performed By: #### A JAZMINE, CBC, FERR, FE, TSH, VIDH, ADIFF, GFR, FT4, CMP #### [address] [address] FT4on 12-08-2024 Free T4 [Mass/Vol] 1.10 ng/dL Normal 0.76-1.46 [facility] Comment on above: Performed By: #### A JAZMINE, CBC, FERR, FE, TSH, VIDH, ADIFF, GFR, FT4, CMP #### [address] [address] TSHon 12-08-2024 TSH Qn 2.67 m[IU]/L Normal 0.36-3.74 [facility] Comment on above: Performed By: #### A JAZMINE, CBC, FERR, FE, TSH, VIDH, ADIFF, GFR, FT4, CMP #### [address] [address] .Auto Diffon 12-07-2024 Basophil, Absolute 0.1 10 3/mcL Normal 0.0-0.[address] [facility] Comment on above: Performed By: #### A JAZMINE, CBC, FERR, FE, TSH, VIDH, ADIFF, GFR, FT4, CMP #### [address] [address] Basophils/100 WBC (Bld) 0.6 % Normal 0.0-2.5 [facility] Comment on above: Performed By: #### A JAZMINE, CBC, FERR, FE, TSH, VIDH, ADIFF, GFR, FT4, CMP #### [address] [address] Eosinophil, Absolute 0.4 10 3/mcL Normal 0.0-0.7 [facility] Comment on above: Performed By: #### A JAZMINE, CBC, FERR, FE, TSH, VIDH, ADIFF, GFR, FT4, CMP #### [address] [address] Eosinophils/100 WBC (Bld) 4.7 % Normal 0.0-6.0 [facility] Comment on above: Performed By: #### A JAZMINE, CBC, FERR, FE, TSH, VIDH, ADIFF, GFR, FT4, CMP #### [address] [address] Lymphocyte, Absolute 3.3 10 3/mcL Normal 0.9-4.3 [facility] Comment on above: Performed By: #### A JAZMINE, CBC, FERR, FE, TSH, VIDH, ADIFF, GFR, FT4, CMP #### [address] [address] Lymphocytes/100 WBC (Bld) 42.3 % High 20.0-40.0 [facility] Comment on above: Performed By: #### A JAZMINE, CBC, FERR, FE, TSH, VIDH, ADIFF, GFR, FT4, CMP #### [address] [address] Monocyte, Absolute 0.5 10 3/mcL Normal 0.1-1.[address] [facility] Comment on above: Performed By: #### A JAZMINE, CBC, FERR, FE, TSH, VIDH, ADIFF, GFR, FT4, CMP #### [address] [address] Monocytes/100 WBC (Bld) 5.7 % Normal 2.0-13.0 [facility] Comment on above: Performed By: #### A JAZMINE, CBC, FERR, FE, TSH, VIDH, ADIFF, GFR, FT4, CMP #### [address] [address] Neutrophils/100 WBC (Bld) 46.7 % Low 50.0-75.0 [facility] Comment on above: Performed By: #### A JAZMINE, CBC, FERR, FE, TSH, VIDH, ADIFF, GFR, FT4, CMP #### [address] [address] .NEUABSon 12-07-2024 Neutrophil, Absolute 3.7 10 3/mcL Normal 2.3-8.1 [facility] Comment on above: Performed By: #### A JAZMINE, CBC, FERR, FE, TSH, VIDH, ADIFF, GFR, FT4, CMP #### [address] [address] CBCon 12-07-2024 Erythrocyte distribution width (RBC) [Ratio] 13.4 % Normal 11.5-15.5 [facility] Comment on above: Performed By: #### A JAZMINE, CBC, FERR, FE, TSH, VIDH, ADIFF, GFR, FT4, CMP #### [place] [address] Hematocrit (Bld) [Volume fraction] 45.1 % Normal 34.0-46.0 [facility] Comment on above: Performed By: #### A JAZMINE, CBC, FERR, FE, TSH, VIDH, ADIFF, GFR, FT4, CMP #### [place] [address] Hgb 15.0 G/dL Normal 12.0-16.0 [facility] Comment on above: Performed By: #### A JAZMINE, CBC, FERR, FE, TSH, VIDH, ADIFF, GFR, FT4, CMP #### [place] [address] MCH (RBC) [Entitic mass] 30.1 pg Normal 27.0-33.0 [facility] Comment on above: Performed By: #### A JAZMINE, CBC, FERR, FE, TSH, VIDH, ADIFF, GFR, FT4, CMP #### [place] [address] MCHC 33.2 G/dL Normal 32.0-36.0 [facility] Comment on above: Performed By: #### A JAZMINE, CBC, FERR, FE, TSH, VIDH, ADIFF, GFR, FT4, CMP #### [place] [address] MCV (RBC) [Entitic vol] 90.5 fL Normal 80.0-99.0 [facility] Comment on above: Performed By: #### A JAZMINE, CBC, FERR, FE, TSH, VIDH, ADIFF, GFR, FT4, CMP #### [place] [address] Platelet 379 10 3/mcL Normal 150-450 [facility] Comment on above: Performed By: #### A JAZMINE, CBC, FERR, FE, TSH, VIDH, ADIFF, GFR, FT4, CMP #### [address] [address] Platelet mean volume (Bld) [Entitic vol] 8.1 fL Normal 6.6-10.5 [facility] Comment on above: Performed By: #### A JAZMINE, CBC, FERR, FE, TSH, VIDH, ADIFF, GFR, FT4, CMP #### [place] [address] RBC 4.99 10 6/mcL Normal 4.10-5.30 [facility] Comment on above: Performed By: #### A JAZMINE, CBC, FERR, FE, TSH, VIDH, ADIFF, GFR, FT4, CMP #### [place] [address] WBC 7.9 10 3/mcL Normal 4.5-10.8 [facility] Comment on above: Performed By: #### A JAZMINE, CBC, FERR, FE, TSH, VIDH, ADIFF, GFR, FT4, CMP #### [place] [address] LABORATORYOrdered By: SYSTEM SYSTEM on 12-07-2024 25-hydroxyvitamin D3 [Mass/Vol] 55.7 ng/mL Invalid Interpretation Code AO ADM SS Comment on above: Interpretive Data: I nterpretive Values Based on Total 25(OH) Vitamin D: Deficient <20 ng/mL Insufficient 20 - <30 ng/mL Sufficient 30-100 ng/mL Albumin BCP dye [Mass/Vol] 3.8 G/dL Normal 3.5 - 5.0 G/dL AO ADM SS Albumin/Globulin [Mass ratio] 1.1 {ratio} Normal 1.1 - 2.5 ratio AO ADM SS ALP [Catalytic activity/Vol] 84 U/L Normal 40 - 135 U/L AO ADM SS ALT With P-5'-P [Catalytic activity/Vol] 40 U/L Normal 14 - 59 U/L AO ADM SS AST With P-5'-P [Catalytic activity/Vol] 25 U/L Normal 10 - 40 U/L AO ADM SS Basophils (Bld) [#/Vol] 0.1 103/mcL Normal 0.0 - 0.3 10^3/mcL AO Workflow SS Basophils/100 WBC (Bld) 0.6 % Normal 0.0 - 2.5 % AO Workflow SS Bilirubin [Mass/Vol] 0.4 mg/dL Normal 0.2 - 1.0 mg/dL AO ADM SS Comment on above: Interpretive Data: U se of this assay is not recommended for patients undergoing treatment with eltrombopag due to the potential for falsely elevated results. Calcium [Mass/Vol] 9.5 mg/dL Normal 8.4 - 10. 2 mg/dL AO ADM SS Chloride [Moles/Vol] 104 mmol/L Normal 98 - 107 mmol/L AO ADM SS CO2 [Moles/Vol] 26 mmol/L Normal 22 - 29 mmol/L AO ADM SS Creatinine [Mass/Vol] 0.91 mg/dL Normal 0.51 - 0.95 mg/dL AO ADM SS Electrolyte Balance 9.0 mEq/L Normal 4.0 - 15.0 mEq/L AO ADM SS Eosinophil, Absolute 0.4 103/mcL Normal 0.0 - 0.7 10^3/mcL AO Workflow SS Eosinophils/100 WBC (Bld) 4.7 % Normal 0.0 - 6.0 % AO Workflow SS Erythrocyte distribution width (RBC) [Ratio] 13.4 % Normal 11.5 - 15.5 % AO Workflow SS Estimated Glomerular Filtration Rate 92 ml/min/1.73sqm Invalid Interpretation Code AO Chemistry S Comment on above: Interpretive Data: Stages of Chronic Kidney Disease (CKD) Stage Description eGFR(ml/min/1.73 sq.m.) CKD 1 Normal kidney function or >=90 normal kindney function with possible kidney damage (ex. Proteinuria) CKD 2 Kidney damage with mild loss 60-89 of kidney function CKD 3a Mild to moderate loss of kidney 45-59 function CKD 3b Moderate to severe loss of 30-44 of kindey function CKD 4 Severe loss of kidney function 15-29 CKD 5 Kidney failure <15 Note: (go live 2024) the eGFR calculation was updated to the 2020 CKD-EPI creatinine equation without a race factor to calculate the eGFR results. Ferritin [Mass/Vol] 71.0 ng/mL Normal 8.0 - 252.0 ng/mL AO ADM SS Free T4 [Mass/Vol] 1.10 ng/dL Normal 0.76 - 1.46 ng/dL AO ADM SS Globulin 3.6 G/dL Normal 2.7 - 4.4 G/dL AO ADM SS Glucose [Mass/Vol] 83 mg/dL Normal 70 - 105 mg/dL AO ADM SS Hematocrit (Bld) [Volume fraction] 45.1 % Normal 34.0 - 46.0 % AO Workflow SS Hemoglobin (Bld) [Mass/Vol] 15.0 G/dL Normal 12.0 - 16.0 G/dL AO Workflow SS Iron [Mass/Vol] 98 ug/dL Normal 50 - 170 mcg/dL AO ADM SS Lymphocytes (Bld) [#/Vol] 3.3 103/mcL Normal 0.9 - 4.3 10^3/mcL AO Workflow SS Lymphocytes/100 WBC (Bld) 42.3 % High 20.0 - 40.0 % AO Workflow SS MCH (RBC) [Entitic mass] 30.1 pg Normal 27.0 - 33.0 pg AO Workflow SS MCHC 33.2 G/dL Normal 32.0 - 36.0 G/dL AO Workflow SS MCV (RBC) [Entitic vol] 90.5 fL Normal 80.0 - 99.0 fL AO Workflow SS Monocytes (Bld) [#/Vol] 0.5 103/mcL Normal 0.1 - 1.4 10^3/mcL AO Workflow SS Monocytes/100 WBC (Bld) 5.7 % Normal 2.0 - 13.0 % AO Workflow SS Neutrophils (Bld) [#/Vol] 3.7 103/mcL Normal 2.3 - 8.1 10^3/mcL AO Workflow SS Neutrophils/100 WBC (Bld) 46.7 % Low 50.0 - 75.0 % AO Workflow SS Platelet mean volume (Bld) [Entitic vol] 8.1 fL Normal 6.6 - 10.5 fL AO Workflow SS Platelets (Bld) [#/Vol] 379 103/mcL Normal 150 - 450 10^3/mcL AO Workflow SS Potassium [Moles/Vol] 3.7 mmol/L Normal 3.5 - 5.1 mmol/L AO ADM SS Protein [Mass/Vol] 7.4 G/dL Normal 6.4 - 8.2 G/dL AO ADM SS RBC (Bld) [#/Vol] 4.99 106/mcL Normal 4.10 - 5.30 10^6/mcL AO Workflow SS Sodium [Moles/Vol] 139 mmol/L Normal 136 - 145 mmol/L AO ADM SS TSH Qn 2.67 m[IU]/L Normal 0.36 - 3.74 mcIU/mL AO ADM SS Urea nitrogen [Mass/Vol] 13 mg/dL Normal 7 - 18 mg/dL AO ADM SS Urea nitrogen/Creatinin e [Mass ratio] 14 ratio Normal 7 - 27 ratio AO ADM SS WBC (Bld) [#/Vol] 7.9 103/mcL Normal 4.5 - 10.8 10^3/mcL AO Workflow SS VIDHon 12-07-2024 Vit. D 25-Hydroxy 55.7 ng/mL Normal [facility] Comment on above: Result Comment: Inte rpretive Values Based on Total 25(OH) Vitamin D: Deficient <20 ng/mL Insufficient 20 - <30 ng/mL Sufficient 30-100 ng/mL Performed By: #### A JAZMINE, CBC, FERR, FE, TSH, VIDH, ADIFF, GFR, FT4, CMP #### [place] [address] MR/BMS.BPon 12-06-2024 MR/BMS.[address], [place] [address] OFFICE VISIT Date of Service: 12/06/24 MR#: [id number] Acct: [id number] Name: YULIYA PHAN Rep #: [id number] : 2005 Provider: Dr. Dedrick Yates se, DO Age/Sex: 19/F Location: [facility] [place].BP Status: Signed Intake Vital Signs 08/30/24 11:26 12/06/24 11:19 Height 5 ft 5 in 5 ft 5 in Weight: 190 lb 197 lb BMI 31.6 32.8 BP 122/85 H 137/91 H Blood Pressure Location Lt brachial Lt brachial Position Sitting Sitting Respiration 16 16 Pulse 72 91 Pulse Source Monitor Monitor BP Intake Visit Reasons: 3 M FU Accompanied by: Self Allergies valproic acid Allergy (Unknown, Verified 12/06/24 11:23) PT UNSURE OF REACTION amitriptyline Allergy (Verified 12/06/24 11:23) Other divalproex sodium (From Depakote) Allergy (Verified 12/06/24 11:23) Rash grass pollen Allergy (Verified 12/06/24 11:23) Shortness of breath house dust Allergy (Verified 12/06/24 11:23) Shortness of breath mold Allergy (Verified 12/06/24 11:23) Shortness of breath diphenhydramine (From Benadryl) Adverse Reaction (Verified 12/06/24 11:23) Other Medications ???Medication ???Instructions ???Recorded ???Confirmed ???Type albuterol sulfate 90 mcg/actuation 1 - 2 puff inhalation Q4H PRN GA N 10/14/18 12/06/24 History aerosol inhaler Wheezing docusate sodium 100 mg capsule 100 mg PO BID 07/02/19 12/06/24 Hi story magnesium oxide 400 mg PO DAILY 07/02/19 12/06/24 History pediatric naccxamj-ybmg-wip 1 ea PO DAILY 07/02/19 12/06/24 Hi story riboflavin (vitamin B2) 100 mg 2 tab PO DAILY 07/02/19 12/06/24 H istory tablet acetaminophen 325 mg capsule 325 mg PO ONCE PRN Pain 01/30/20 0 12/06/24 History (Tylenol) fluticasone propionate 50 2 spray intranasal DAILY 01/30/20 12/06/24 History mcg/actuation nasal spray,suspension lactobacillus combination no.8 3 3,000 mmu cells PO DAILY 01/30/20 12/06/24 History billion cell capsule (Adult Probiotic) naproxen sodium 220 mg capsule 220 mg PO BID PRN 01/30/20 5 History norethindrone-e.estradiol 1 tab PO DAILY 01/30/20 12/06/24 H istory triphasic 0.5 mg/0.75 mg/1 mg-35 mcg tablet sumatriptan succinate 100 mg tablet mg PO 01/30/20 12/06/24 History Dupixent Pen 300 mg OTHER QWEEK 02/12/21 History melatonin 3 mg PO.IVFORM DAILY 02/12/2111/18 History cetirizine 10 mg capsule (Allergy 10 mg PO QDAY PRN 08/30/24 History Relief (cetirizine)) omeprazole 20 mg capsule,delayed 20 mg PO QDAY 08/30/24 12/06/24 Hi story release rimegepant 75 mg disintegrating mg PO 08/30/24 12/06/24 History tablet (Nurtec ODT) buspirone 15 mg tablet 15 mg PO BID 12/06/24 12/06/24 His tory duloxetine 60 mg capsule,delayed 60 mg PO DAILY #90 caps 12/06/24 0 12/06/24 Rx release PFSH Medical History (Updated 03/31/24 @ 14:[address] Dedrick Guerrero, DO) Panic GILBERTO (generalized anxiety disorder) Encounter for screening for COVID-19 Asthma IBS (irritable bowel syndrome) Migraines Surgical History (Updated 03/31/24 @ 13:18 by Monalisa Hilliard) Hx of breast reduction, elective History of tonsillectomy and adenoidectomy Family History Other Asthma Social History Smoking Status: Never smoker alcohol intake: never HPI History of Present Illness History provided by: patient HPI: Yuliya Phan is a 19 year old female who presents today for follow up evaluation. Patient reports that she has been feeling fat and lazy. Has gained about 7 lbs in the last 3 months. Also has been feeling much more lethargic in recent past. 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 Feels like she does generally feel cold. Nails are brittle. Follows with Yvonne Hurtado every other week. When getting to sleep does feel like she is getting good quality. Just doesn't feel rested in the morning. Has been picking to some degree, but not excessively. Denies any panic attacks in recent past. Has had some anxiety episodes but has been able to talk self out of. Will be changing schedule as she goes back to school starting next week. Does feel like duloxetine has been working largely well. Review of Systems Constitutional Reports: change in weight (Gain) and fatigue Eyes Reports: change in vision Ears, Nose, Mouth, Throat Denies: throat pain, neck pain or change in hearing Cardiovascular Denies: chest pain, palpitations or dyspnea Respiratory Denies: dyspnea, cough or wheezing Gastrointestinal Reports: change in bowel habits Genitourinary Denies: dysuria or urinary frequency Musculoskeletal Reports: back pain; Denies: neck therese (more content not included)... Normal [facility] Video Manager Cytology Reporton 2024 Video Manager Cytology Report . Pathology Reports Accession: Collected Date/Time: Received Date/Time: Pathologist: [id number] 10/04/2024 11:56 EDT 10/04/2024 18:00 EDT Video Manager Cytology Report SPECIMEN: Specimen Description: Liquid Prep Reflex ASCUS Specimen: Cervical/Endocervical Screening or Diagnostic: Screening RELEVANT HISTORY: LMP: unknown SPECIMEN ADEQUACY: SATISFACTORY FOR EVALUATION, BUT BORDERLINE SQUAMOUS CELLULARITY Endocervical/Transformational zone component present INTERPRETATION/RESULTS: NEGATIVE FOR INTRAEPITHELIAL LESION OR MALIGNANCY COMMENT: This Pap Test was successfully processed and evaluated with the assistance of the [employer] ThinPrep Test Imaging System. Verified by Pathology report verified by [facility] Screened by: STEVE Electronically signed by Brittany AMIN (ASCP) Sign-Out Date: 10/12/2024 10:47 Performing Lab: [facility], [address] [place] [address] Pathology Dept Disclaimer The Pap test is a screening test for cervical cancer. As evidenced by published data, it is subject to both inherent false negative and false positive results. Your patient's results should be interpreted in context with pertinent clinical history including gynecological examination. Normal [facility] MR/BMS.BPon 08-30-2024 MR/BMS.[address] [place] [address] OFFICE VISIT Date of Service: 08/30/24 MR#: [id number] Acct: [id number] Name: YULIYA PHAN Rep #: [id number] : 2005 Provider: Dr. Dedrick Yates se, DO Age/Sex: 19/F Location: [facility].BP Status: Signed Intake Vital Signs 06/01/24 11:19 08/30/24 11:26 Height 5 ft 5 in 5 ft 5 in Weight: 190 lb BMI 31.6 BP 135/81 H 122/85 H Blood Pressure Location Lt brachial Lt brachial Position Sitting Sitting Respiration 16 16 Pulse 94 72 Pulse Source Monitor Monitor BP Intake Visit Reasons: 3 M FU Accompanied by: Mother Allergies valproic acid Allergy (Unknown, Verified 08/30/24 11:30) PT UNSURE OF REACTION amitriptyline Allergy (Verified 08/30/24 11:30) Other divalproex sodium (From Depakote) Allergy (Verified 08/30/24 11:30) Rash grass pollen Allergy (Verified 08/30/24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 ([place]) Comment on above: Result Comment: Use of this assay is not recommended for patients undergoing treatment with eltrombopag due to the potential for falsely elevated results. Performed By: #### VION LOO, RFP #### [address] [address] BUN/Creatinine Ratio 16 ratio Normal 7-27 [facility] ([place]) Comment on above: Performed By: #### IVON LOO, RFP #### [address] [address] Calcium [Mass/Vol] 9.0 mg/dL Normal 8.4-10.2 [facility] ([place]) Comment on above: Performed By: #### IVON LOO, RFP #### [address] [address] Chloride [Moles/Vol] 104 mmol/L Normal 98-107 [facility] ([place]) Comment on above: Performed By: #### IVON LOO, RFP #### [address] [address] CO2 [Moles/Vol] 24 mmol/L Normal 22-29 [facility] ([place]) Comment on above: Performed By: #### IVON LOO, RFP #### [address] [address] Creatinine [Mass/Vol] 0.93 mg/dL Normal 0.55-1.02 [facility] ([place]) Comment on above: Performed By: #### Elaine LAMAS, VIDH, RFP #### [address] [address] Electrolyte Balance 11.0 mEq/L Normal 4.0-15.0 [facility] ([place]) Comment on above: Performed By: #### IVON LOO, RFP #### [address] [address] Globulin 2.9 G/dL Normal [facility] ([place]) Comment on above: Performed By: #### IVON LOO, RFP #### [address] [address] Glucose [Mass/Vol] 91 mg/dL Normal 70-105 [facility] ([place]) Comment on above: Performed By: #### IVON LOO, RFP #### [address] [address] Potassium [Moles/Vol] 3.3 mmol/L Low 3.5-5.1 [facility] ([place]) Comment on above: Performed By: #### IVON LOO, RFP #### [address] [address] Sodium [Moles/Vol] 139 mmol/L Normal 136-145 [facility] ([place]) Comment on above: Performed By: #### IVON LOO, RFP #### [address] [address] Total Protein 7.0 G/dL Normal 6.4-8.2 [facility] ([place]) Comment on above: Performed By: #### IVON LOO, RFP #### [address] [address] Urea nitrogen [Mass/Vol] 15 mg/dL Normal 7-18 [facility] ([place]) Comment on above: Performed By: #### IVON LOO, RFP #### [address] [address] PREGUon 08-14-2022 HCG ( test) Ql (U) Negative Normal [facility] ([place]) Comment on above: Performed By: #### U A PREGU, UAMICAO #### Sun [address] [address] test (u) int Not detected Invalid Interpretation Code [facility] ([place]) Comment on above: Performed By: #### U A, PREGU, UAMICAO #### [address] [address] UAon 08-14-2022 Color (U) Yellow Normal [facility] ([place]) Comment on above: Performed By: #### U A, PREGU, UAMICAO #### [place] [address] Glucose (U) [Mass/Vol] Negative Normal Negative [facility] ([place]) Comment on above: Performed By: #### U A, PREGU, UAMICAO #### [place] [address] Ketones Ql (U) 40 mg/dL Abnormal Negative [facility] ([place]) Comment on above: Performed By: #### U A, PREGU, UAMICAO #### [place] [address] UA Appear Slightly Cloudy Abnormal Clear [facility] ([place]) Comment on above: Performed By: #### U A, PREGU, UAMICAO #### [address] [address] UA Bili Small Abnormal Negative [facility] ([place]) Comment on above: Performed By: #### U A, PREGU, UAMICAO #### [address] [address] UA Blood Moderate Abnormal Negative [facility] ([place]) Comment on above: Performed By: #### U A, PREGU, UAMICAO #### [address] [address] UA Leuk Est Negative Normal Negative [facility] ([place]) Comment on above: Performed By: #### U A, PREGU, UAMICAO #### [place] [id number] UA Nitrite Negative Normal Negative [facility] ([place]) Comment on above: Performed By: #### U A, PREGU, UAMICAO #### [place] [id number] UA pH 6.0 Normal 5.0 - 8.0 [facility] ([place]) Comment on above: Performed By: #### U A, PREGU, UAMICAO #### [address] [address] UA Protein Trace Normal Negative [facility] ([place]) Comment on above: Performed By: #### U A, PREGU, UAMICAO #### [address] [address] UA Spec Grav >=1.030 Abnormal 1.015-1.02 5 [facility] ([place]) Comment on above: Performed By: #### U A, PREGU, UAMICAO #### [place] [id number] UA Specimen Type Void Normal [facility] ([place]) Comment on above: Performed By: #### U A, PREGU, UAMICAO #### [place] [id number] UA Urobilinogen 0.2 E.U./dL Normal 0.2-1.0 [facility] ([place]) Comment on above: Performed By: #### U A, PREGU, UAMICAO #### [place] [id number] Progress Noteon 06-27-2022 Emergency Communications Officer Authentication Interface Message Text This is a telemedicine video visit requested by the patient/guardian that was performed with the patient's location at home and the provider's location at hospital. Yuliya is seen today for follow-up visit regarding headache. She was last seen at the clinic on 10/25/2021 She is 17 years old and was with her mother Moustapha for this visit. Since the last visit, she has done well. Shortly after she left for college, Gabapentin was not included in her medications provided by her pharmacy. She has been off of it since January and there has been no change in her headaches. She has not had any headaches since November. She is unsure what made her headaches better except maybe being away from her classmates. Interval headache history: Frequency: None since the last visit Character: pounding Location: frontal and sometimes behind the ears Radiation: sometimes in her eyes Average pain scale: 4-5/10 when it starts and then builds up; worst 9/10 Aura: sees some shadowy spots, snowy like vision-- less since the last visit Associated symptoms: nausea, photophobia, phonophobia, osmophobia Any Focal Neurologic symptoms with headache: None Duration: 3-4 hours with Ubrelvy Abortive Treatment: Ubrelvy 50 mg. Has redosed and is not consistently effective Aggravating Factors: light, sounds, smells, heat Any recent E.R. Visits for headache: None Preventive treatment: Periactin 6 mg, Mg and B2. She takes regularly. Tolerating side effects Overall patient's assessment of headaches: improved Mood: Mother stated that Yuliya called that she is feeling depressed. PCP increased dose of Zoloft and Buspar. However, she called mother to say that she feels unsafe and so mother picked her up from college and has been home for the last 3 weeks. She goes back to school next week and will have a regular check in with school counselor. There are no suicidal or homicidal thoughts. Previous Abortive Medications Used: Tylenol, Ibuprofen, Maxalt Previous Preventive Medications Used: Periactin 8 mg hs- prescribed by GI; has used Amitriptyline- has caused mood problems; Topamax- urinary problems, foggines; Gabapentin Previous Work-Up Done For Headache: Brain MRI and MRA on 04/08/2019: normal Headache Disability: In the last 3 months, how many full days of school were missed due to headaches? : 0 In the last 3 months, how many partial days of school were missed due to headaches? (Do not include the full days missed counted on Question 1): 0 In the last 3 months, how many days did you function less than half your ability in school because of a headache? (Do not include the days counted in Questions 1 and 2): 0 In the last 3 months, how many days were you not able to do things at home due to a headache? (For example chores, homework, etc): 0 In the last 3 months, how many days did you not participate in other activities due to a headache? (For example: play, go out, sports, etc): 0 In the last 3 months, how many days did you participate in these activities but functioned at less than half your ability? (Do not include the days counted in Question 5): 0 Total Score: 0 Allergies: NKDA Current Medications: Current Outpatient Medications Medication Sig sertraline (ZOLOFT) 100 MG tablet Take 2 Tablets (200 mg) by mouth daily pantoprazole (PROTONIX) 20 MG EC tablet TAKE 1 TABLET BY MOUTH EVERY DAY busPIRone (BUSPAR) 15 MG tablet Take 1 Tablet (15 mg) by mouth 2 times daily spironolactone (ALDACTONE) 100 MG TAKE ONE TABLET BY MOUTH ONCE A DAY BEFORE BEDTIME cyproheptadine (PERIACTIN) 4 MG tablet TAKE 1.5 TABLETS BY MOUTH EVERY DAY AT BEDTIME Magnesium Oxide 400 (240 Mg) MG TABS TAKE 1 TABLET BY MOUTH EVERY DAY vitamin B-2 (RIBOFLAVIN) 100 MG tablet TAKE 2 TABLETS TWICE A DAY levonorgestrel-ethinyl estradiol (AVIANE) 0.1-20 MG-MCG per tablet Take 1 Tablet by mouth daily ondansetron (ZOFRAN-ODT) 4 MG disintegrating tablet Take 1 Tablet (4 mg) by mouth every 8 hours as needed for Nausea Clascoterone (WINLEVI) 1 % CREA Apply to affected area Ubrogepant 100 MG TABS Take one at onset of migraine. Repeat once if no better in 2 hours. triamcinolone (KENALOG) 0.1 % cream Apply to affected area 3 times daily As needed 2 weeks on and 2 weeks off acetaminophen (TYLENOL) 500 MG tablet Take 1 Tablet (500 mg) by mouth every 6 hours as needed for Pain melatonin 3 MG tablet Take one tablet at night dicyclomine (BENTYL) 10 MG capsule Take 2 Capsules (20 mg) by mouth 3 times daily as needed (pain) DUPIXENT 300 MG/2ML SOSY docusate sodium (COLACE) 100 MG CAPS capsule Take 1 Cap (100 mg) by mouth 2 times daily Multiple Vitamins-Iron (MULTIVITAMIN/IRON PO) Take by mouth daily Lactobacillus (PROBIOTIC ACIDOPHILUS PO) Take by mouth daily fluticasone (FLONASE) 50 MCG/ACT nasal spray 2 Sprays by Each Nare route as needed for Allergies albuterol (PROAIR RESPICLICK) 108 (90 Base) MCG/ACT inhaler Inhale into the kelly (more content not included)... [facility] Progress Noteon 06-23-2022 Emergency Communications Officer Authentication Interface Message Text Clinic Note Name: Yuliya Phan 06/23/2022 Provider: Gilmer Moscoso MD : 2005 Age: 17 y.o. Subjective: Chief Complaint Patient presents with Breast - Large HPI: Yuliya Phan is a 17 y.o. female s/p bilateral acosta reduction mammaplasties on 04/16/22. She is here for follow up with her mother today as she is back from her freshman year of college for spring. She has had no issues since her last visit with me in April. No fevers, chills, drainage, parasthesias. She is showering and wearing a sports bra. She is running and playing soccer. She has no back pain. She is very happy with her results. She is using scar away silicone on her scars. Past Medical History: Diagnosis Date Anxiety Depression Eczema Functional abdominal pain syndrome Uncomplicated asthma last use ~ 06/15/18 felt tight,She never had to use oral steroids, is off inhaled steroid Past Surgical History: Procedure Laterality Date BREAST REDUCTION SURGERY Bilateral 04/16/2022 Bilateral reduction mammoplasties performed by Klaus Moscoso MD at [facility] OR COLONOSCOPY N/A 06/29/2018 COLONOSCOPY + biopsies performed by Rashmi Rodgers MD at [facility] OR TONSILLECTOMY TONSILLECTOMY AND ADENOIDECTOMY UPPER GASTROINTESTINAL ENDOSCOPY N/A 06/29/2018 ENDOSCOPY UPPER (FLEXIBLE) + biopsies performed by Rashmi Rodgers MD at [facility] OR Family History Problem Relation Age of Onset Irritable Bowel Syndrome Mother Post-op N/V Mother Irritable Bowel Syndrome Maternal Uncle Irritable Bowel Syndrome Maternal Grandmother Other Father delayed awakening Anesth Problems Neg Hx Bleeding Problem Neg Hx Amblyopia Neg Hx ChildHD Glaucoma Neg Hx ChildHD Cataract Neg Hx Glasses BF 4 Y/O Neg Hx Ptosis Neg Hx Strabismus Neg Hx Allergies Allergen Reactions Amitriptyline Other (See Comments) Gets aggressive Apple Juice [Apple Juice] Diarrhea Benadryl [Diphenhydramine] Other (See Comments) agitation Chicken Allergy Diarrhea Valproic Acid Rash Immunization status: up to date and documented. Outpatient Medications Marked as Taking for the 06/23/22 encounter (Office Visit) with Klaus Moscoso MD Medication Sig Dispense Refill busPIRone (BUSPAR) 15 MG tablet Take 1 Tablet (15 mg) by mouth 2 times daily spironolactone (ALDACTONE) 100 MG TAKE ONE TABLET BY MOUTH ONCE A DAY BEFORE BEDTIME cyproheptadine (PERIACTIN) 4 MG tablet TAKE 1.5 TABLETS BY MOUTH EVERY DAY AT BEDTIME 45 Tablet 2 Magnesium Oxide 400 (240 Mg) MG TABS TAKE 1 TABLET BY MOUTH EVERY DAY 30 Tablet 3 vitamin B-2 (RIBOFLAVIN) 100 MG tablet TAKE 2 TABLETS TWICE A DAY 120 Tablet 3 levonorgestrel-ethinyl estradiol (AVIANE) 0.1-20 MG-MCG per tablet Take 1 Tablet by mouth daily ondansetron (ZOFRAN-ODT) 4 MG disintegrating tablet Take 1 Tablet (4 mg) by mouth every 8 hours as needed for Nausea 45 Tablet 2 Clascoterone (WINLEVI) 1 % CREA Apply to affected area Ubrogepant 100 MG TABS Take one at onset of migraine. Repeat once if no better in 2 hours. 10 Tablet 5 pantoprazole (PROTONIX) 20 MG EC tablet Take 1 Tablet (20 mg) by mouth daily 90 Tablet 3 triamcinolone (KENALOG) 0.1 % cream Apply to affected area 3 times daily As needed 2 weeks on and 2 weeks off acetaminophen (TYLENOL) 500 MG tablet Take 1 Tablet (500 mg) by mouth every 6 hours as needed for Pain melatonin 3 MG tablet Take one tablet at night 30 Tablet 1 dicyclomine (BENTYL) 10 MG capsule Take 2 Capsules (20 mg) by mouth 3 times daily as needed (pain) 120 Capsule 3 DUPIXENT 300 MG/2ML SOSY docusate sodium (COLACE) 100 MG CAPS capsule Take 1 Cap (100 mg) by mouth 2 times daily 60 Cap 5 Multiple Vitamins-Iron (MULTIVITAMIN/IRON PO) Take by mouth daily Lactobacillus (PROBIOTIC ACIDOPHILUS PO) Take by mouth daily fluticasone (FLONASE) 50 MCG/ACT nasal spray 2 Sprays by Each Nare route as needed for Allergies albuterol (PROAIR RESPICLICK) 108 (90 Base) MCG/ACT inhaler Inhale into the lungs every 6 hours as needed for Wheezing fexofenadine (BRI) 180 MG tablet Take 1 Tablet (180 mg) by mouth daily Social History No data filed Objective: PHYSICAL EXAM: Temp 36.7 C (98 F) (Temporal) Ht 167 cm Wt 76.6 kg BMI 27.47 kg/m Gen: nad, alert Breasts: Postsurgical changes. NAC viable, good position. No parasthesias. Good symmetry. No seroma or hematoma. good contour extending to axilla. Flat scars. Mild hyperemia. Breasts are settling well. Assessment: S/p bilateral reduction mammaplasties Plan: She is happy with her results and doing very well. No issues or concerns. Good symmetry. Continue hygiene measures. Nonwire bra x 3 months total. No restrictions on activity. Continue scar management measures with scar massage, moisturizer, sunscreen, silicone. Scars and hyperemia should fade over time. All questions answered. Follow up PRN. Klaus Moscoso MD 06/23/2022 Normal [facility] .GFRon 04-25-2022 GFR >60 Normal [facility] ([place]) Comment on above: Result Comment: GFR Population mean for , Non- Americans Ages 20-29 = 116 mL/min/1.73 sq.m. Ages 30-39 = 107 mL/min/1.73 sq.m. Ages 40-49 = 99 mL/min/1.73 sq.m. Ages 50-59 = 93 mL/min/1.73 sq.m. Ages 60-69 = 85 mL/min/1.73 sq.m. Ages 70+ = 75 mL/min/1.73 sq.m. Chronic Kidney Disease: Less than 60 mL/min/1.73 square meters End Stage Renal Disease: Less than 15 mL/min/1.73 square meters Performed By: #### G FR, VIJOHNSON, RFP #### [place] [address] GFR Non- >60 Normal [facility] ([place]) Comment on above: Result Comment: GFR Population mean for , Non- Americans Ages 20-29 = 116 mL/min/1.73 sq.m. Ages 30-39 = 107 mL/min/1.73 sq.m. Ages 40-49 = 99 mL/min/1.73 sq.m. Ages 50-59 = 93 mL/min/1.73 sq.m. Ages 60-69 = 85 mL/min/1.73 sq.m. Ages 70+ = 75 mL/min/1.73 sq.m. Chronic Kidney Disease: Less than 60 mL/min/1.73 square meters End Stage Renal Disease: Less than 15 mL/min/1.73 square meters Performed By: #### IVON LOO, RFP #### [address] [address] RFPon 04-25-2022 Albumin Level 3.9 G/dL Normal 3.2-4.8 [facility] ([place]) Comment on above: Performed By: #### IVON LOO, RFP #### [address] [address] BUN/Creatinine Ratio 22.5 ratio High 10.0-22.0 [facility] ([place]) Comment on above: Performed By: #### IVON LOO, RFP #### [address] [address] Calcium [Mass/Vol] 10.1 mg/dL Normal 8.7-10.4 [facility] ([place]) Comment on above: Performed By: #### IVON LOO, RFP #### [address] [address] Chloride [Moles/Vol] 104 mmol/L Normal 98-110 [facility] ([place]) Comment on above: Performed By: #### IVON LOO, RFP #### [address] [address] CO2 [Moles/Vol] 25 mmol/L Normal 22-32 [facility] ([place]) Comment on above: Performed By: #### IVON LOO, RFP #### [address] [address] Creatinine [Mass/Vol] 0.89 mg/dL Normal 0.50-1.20 [facility] ([place]) Comment on above: Performed By: #### IVON LOO, RFP #### [address] [address] Electrolyte Balance 11.0 mEq/L Normal 4.0-15.0 [facility] ([place]) Comment on above: Performed By: #### IVON LOO, RFP #### [address] [address] Glucose [Mass/Vol] 96 mg/dL Normal 70-110 [facility] ([place]) Comment on above: Performed By: #### IVON LOO, RFP #### [address] [address] Phosphate [Mass/Vol] 3.0 mg/dL Normal 2.4-5.1 [facility] ([place]) Comment on above: Result Comment: No te - New Reference Range in effect 19 Performed By: #### IVON LOO, RFP #### [address] [address] Potassium [Moles/Vol] 4.8 mmol/L Normal 3.5-5.0 [facility] ([place]) Comment on above: Result Comment: Spec imen slightly hemolyzed. Performed By: #### IVON LOO, RFP #### [address] [address] Sodium [Moles/Vol] 140 mmol/L Normal 136-145 [facility] ([place]) Comment on above: Performed By: #### IVON LOO, RFP #### [address] [address] Urea nitrogen [Mass/Vol] 20.0 mg/dL Normal 8.0-22.0 [facility] ([place]) Comment on above: Performed By: #### IVON LOO, RFP #### [address] [address] VIDHon 04-25-2022 Vit. D 25-Hydroxy 36.8 ng/mL Normal [facility] ([place]) Comment on above: Result Comment: Inte rpretive Values Based on Total 25(OH)D: Severe Deficiency <20 ng/mL Mild to Moderate Deficiency 20-30 ng/mL Optimum Levels 30-100 ng/mL Toxicity Possible >100 ng/mL Performed By: #### IVON LOO, RFP #### [address] [address] No Panel Informationon 04-16 Interpretation and review of laboratory results Abnormal [facility] POCT urine HCGOrdered By: Humble Martino on 04-16-2022 Clear Background *Present [facility] Control Line *Present [facility] HCG ( test) Ql (U) Negative Negative [facility] Interpretation and review of laboratory results Normal [facility] LOT # [id number] [facility] Renal function panelon 04-16 Albumin [Mass/Vol] 1.9 g/dL Low 3.5 - 5.0 g/dL [facility] Calcium [Mass/Vol] 7.1 mg/dL Low 7.6 - 11. 0 mg/dL [facility] Chloride [Moles/Vol] 105 mmol/L 96 - 108 mmol/L [facility] CO2 [Moles/Vol] 11.9 mmol/L Critically low 22.0 - 29.0 mmol/L [facility] Comment on above: Critical value francis d To and [place]: [id number] Creatinine [Mass/Vol] 0.41 mg/dL Low 0.50 - 1.00 mg/dL [facility] Glucose [Mass/Vol] 50 mg/dL Low 70 - 99 mg/dL [facility] Comment on above: Criteria for Diagnos is of Diabetes: Fasting Specimen (no caloric intake for at least 8 hours): <100 mg/dL Normal 100-125 mg/dL Increased risk for Diabetes >125 mg/dL Diagnostic for Diabetes Random Glucose (any time of day without regard to last meal): > or = 200 mg/dL plus Classic Symptoms of Diabetes Phosphate [Mass/Vol] 1.5 mg/dL Critically low 2.7 - 4.5 mg/dL [facility] Comment on above: Critical value francis d To and Read back by:[id number] Repeated and verified. Potassium [Moles/Vol] 4.0 mmol/L 3.3 - 5.1 mmol/L [facility] Sodium [Moles/Vol] 135 mmol/L 133 - 145 mmol/L [facility] Urea nitrogen [Mass/Vol] 7 mg/dL 4 - 19 mg/dL [facility] Vitamin D 25 hydroxyon 04-16 25 [place] Vitamin D 17 ng/mL Low 30 - 100 ng/mL [facility] Comment on above: Reference ranges pro vided by [facility] Laboratory are based on Endocrine Society Guidelines: Level: Characterization < 21 ng/mL: Vitamin D deficiency 21-29 ng/mL: Suboptimal Vitamin D status 30-100 ng/mL: Optimal Vitamin D status >100 ng/mL: Potentially toxic Vitamin D effects .UA Microscp 12-18-2021 UA Amorph Urate Present Abnormal Absent [facility] Comment on above: Performed By: #### . Urinalysis Microscopic Man #### [place] [address] UA Mucus Present Abnormal Absent [facility] Comment on above: Performed By: #### . Urinalysis Microscopic Man #### [place] [address] UA RBC Qual Absent Normal 0 - 5 [facility] Comment on above: Performed By: #### . Urinalysis Microscopic Man #### [place] [address] UA Squepi Cells Qual 1-4 Normal 0 - 29 [facility] [facility] Comment on above: Performed By: #### . Urinalysis Microscopic Man #### [place] [address] UA WBC Qual Absent Normal 0 - 5 [facility] Comment on above: Performed By: #### . Urinalysis Microscopic Man #### [place] [address] .eGFRon 12-18-2021 GFR/1.73 sq M.predicted MDRD (S/P/Bld) [Vol rate/Area] mL/min/{1.73_m2} Normal >=60 [facility] Comment on above: Order Comment: Order added by Discern rule Result Comment: [facility] have implemented the eGFR calculation approach that does not have a coefficient for race and that conforms to the NKF-ASN Task Force Recommendations. Stages of Chronic Kidney Disease GFR Stage 3a Mild to moderate loss of kidney function 59 to 45 Stage 3b Moderate to severe loss of kidney function 44 to 33 Stage 4 Severe loss of kidney function 29 to 15 Stage 5 Kidney failure Less than 15 GFR calculated using the CKD-Epi Creatinine Equation (2020): eGFR = 142 X min(SCr/?, 1)? X max(SCr /?, 1)-1.200 X 0.9938Age X 1.012 [if female] Abbreviations/Units: eGFR (estimated glomerular filtration rate) = mL/min/1.73 m2 SCr (standardized serum creatinine) = mg/dL ? = 0.7 (females) or 0.9 (males) ? = -0.241 (females) or -0.302 (males) min = indicates the minimum of SCr/? or 1 max = indicates the maximum of SCr/? or 1 Age = years Performed By: #### E GFR #### [place] [address] CBC w/ Diffon 12-18-2021 Erythrocyte distribution width (RBC) [Ratio] 14.6 % Normal 11.6-14.8 [facility] Comment on above: Performed By: #### C BC #### [place] [address] Hematocrit (Bld) [Volume fraction] 41.2 % Normal 36.0-46.0 [facility] Comment on above: Performed By: #### C BC #### [place] [address] Hemoglobin (Bld) [Mass/Vol] 13.8 g/dL Normal 12.0-16.0 [facility] Comment on above: Performed By: #### C BC #### [place] [address] MCH (RBC) [Entitic mass] 30.0 pg Normal 27.0-35.0 [facility] Comment on above: Performed By: #### C BC #### [place] [address] MCHC 33.6 % Normal 31.0-37.0 [facility] Comment on above: Performed By: #### C BC #### [place] [address] MCV (RBC) [Entitic vol] 89.1 fL Normal 80.0-100.0 [facility] Comment on above: Performed By: #### C BC #### [place] [address] Platelet 314 x10*3/mcL Normal 150-350 [facility] Comment on above: Performed By: #### C BC #### [place] [address] Platelet mean volume (Bld) [Entitic vol] 8.5 fL Normal 7.5-11.5 [facility] Comment on above: Performed By: #### C BC #### [place] [address] RBC 4.62 x10*6/mcL Normal 3.80-5.20 [facility] Comment on above: Performed By: #### C BC #### [place] [address] WBC 4.0 x10*3/mcL Low 4.5-11.0 [facility] Comment on above: Performed By: #### C BC #### [place] [address] CMPon 12-18-2021 Albumin [Mass/Vol] 4.0 g/dL Normal 3.7-5.3 [facility] Comment on above: Performed By: #### C OMP #### [place] [address] Albumin/Globulin [Mass ratio] 1.5 {ratio} Normal 1.1-2.2 [facility] Comment on above: Performed By: #### C OMP #### [place] [address] Alk Phos 79 IU/L Normal 34-104 [facility] Comment on above: Performed By: #### C OMP #### [place] [address] ALT [Catalytic activity/Vol] 14 U/L Normal 7-52 [facility] Comment on above: Performed By: #### C OMP #### [place] [address] Anion gap [Moles/Vol] 12 mmol/L Normal 7-17 [facility] Comment on above: Performed By: #### C OMP #### [place] [address] AST [Catalytic activity/Vol] 17 U/L Normal 13-39 [facility] Comment on above: Performed By: #### C OMP #### [place] [address] Bili Total 0.3 mg/dL Normal 0.3-1.0 [facility] Comment on above: Performed By: #### C OMP #### [place] [address] Calcium [Mass/Vol] 9.2 mg/dL Normal 8.6-10.3 [facility] Comment on above: Performed By: #### C OMP #### [place] [address] Chloride 105 IU/L Normal 98-107 [facility] Comment on above: Performed By: #### C OMP #### [place] [address] CO2 [Moles/Vol] 26 mmol/L Normal 21-31 [facility] Comment on above: Performed By: #### C OMP #### [place] [address] Creatinine [Mass/Vol] 0.9 mg/dL Normal 0.6-1.2 [facility] Comment on above: Performed By: #### C OMP #### [address] [address] Glucose [Mass/Vol] 78 mg/dL Normal 70-99 [facility] Comment on above: Performed By: #### C OMP #### [place] [address] Potassium [Moles/Vol] 3.8 mmol/L Normal 3.4-4.8 [facility] Comment on above: Performed By: #### C OMP #### [place] [address] Protein [Mass/Vol] 6.6 g/dL Normal 6.0-8.3 [facility] Comment on above: Performed By: #### C OMP #### [place] [address] Sodium [Moles/Vol] 139 mmol/L Normal 136-145 [facility] Comment on above: Performed By: #### C OMP #### [place] [address] Urea nitrogen [Mass/Vol] 11 mg/dL Normal 7-25 [facility] Comment on above: Performed By: #### C OMP #### [place] [address] Urea nitrogen/Creatinin e [Mass ratio] 12.2 mg/mg Normal 10.0-20.0 [facility] Comment on above: Performed By: #### C OMP #### [place] [address] COV19 Rapidon 12-18-2021 Employed in healthcare? No Normal [facility] Comment on above: Performed By: #### C [id number] #### [place] [address] Group care resident? No Normal [facility] Comment on above: Performed By: #### C [id number] #### [place] [address] In ICU? No Normal [facility] Comment on above: Performed By: #### C [id number] #### [place] [address] status? Unknown Normal [facility] Comment on above: Performed By: #### C [id number] #### [place] [address] Reason for Rapid Test COVID Exposure Normal [facility] Comment on above: Performed By: #### C [id number] #### [place] [address] SARS-CoV-2 (COVID-19) RNA BRET+probe Ql (Unsp spec) Negative Normal Negative [facility] Comment on above: Result Comment: This test is for the detection of SARS-CoV-2 RNA. Positive results are indicative of active infection with SARS-CoV-2. Positive results do not rule out bacterial infection or co-infection with other viruses. Negative results should be treated as presumptive and, if inconsistent with clinical signs and symptoms or necessary for patient management, should be tested with an alternative molecular assay.Negative results do not preclude SARS-CoV-2 infection and should not be used as the sole basis for treatment or other patient management decisions. Clinical correlation with patient history and other diagnostic information is necessary to determine patient infection status. ADDITIONAL INFORMATION: Testing was performed using the ID NOW COVID-19 test by [employer], which has received Emergency Use Authorization (EUA) by the U.S. Food and Drug Administration. The Ibrahim ID NOW COVID-19 test performs best when patients are tested within the first 7 days of symptom onset. Results should be interpreted with caution for asymptomatic patients or those tested outside the 7 day target. Refer to CDC guidelines for further testing algorithms. Fact sheets for this Emergency Use Authorization (EUA) assay can be found at the following links: Fact Sheet for HealthCare Providers: https://www.fda.gov/media/768721/download Fact Sheet for Patients: https://www.fda.gov/media/846723/download Performed By: #### C [id number] #### [place] [address] SARS-CoV-2 (COVID-19) RNA BRET+probe Ql (Unsp spec) Unknown Normal [facility] Comment on above: Performed By: #### C [id number] #### [place] [address] Symptomatic as defined by CDC? Yes Normal [facility] Comment on above: Performed By: #### C [id number] #### [place] [address] Diff Autoon 12-18-2021 Baso Absolute 0.0 x10*3/mcL Normal 0.0-0.2 [facility] Comment on above: Performed By: #### . Automated Diff #### [place] [address] Basophils/100 WBC (Bld) 1.1 % Normal 0.0-1.5 [facility] Comment on above: Performed By: #### . Automated Diff #### [address] [address] Eos Absolute 0.2 x10*3/mcL Normal 0.0-0.4 [facility] Comment on above: Performed By: #### . Automated Diff #### [place] [address] Eosinophils/100 WBC (Bld) 6.0 % High 0.0-5.4 [facility] Comment on above: Performed By: #### . Automated Diff #### [place] [address] Lymph Absolute 1.6 x10*3/mcL Normal 1.2-5.2 [facility] Comment on above: Performed By: #### . Automated Diff #### [place] [address] Lymphocytes/100 WBC (Bld) 39.2 % Normal 28.0-42.0 [facility] Comment on above: Performed By: #### . Automated Diff #### [place] [address] [place] Absolute 0.5 x10*3/mcL Normal 0.1-1.1 [facility] Comment on above: Performed By: #### . Automated Diff #### [place] [address] Monocytes/100 WBC (Bld) 11.5 % Normal 3.7-11.9 [facility] Comment on above: Performed By: #### . Automated Diff #### [place] [address] Neutro Absolute 1.7 x10*3/mcL Low 1.8-8.0 [facility] Comment on above: Performed By: #### . Automated Diff #### [place] [address] Neutro Auto 42.2 % Low 45.6-68.4 [facility] Comment on above: Performed By: #### . Automated Diff #### [address] [address] ED Clinical Summaryon 2021 ED Clinical Summary [address] [address] ED Clinical Summary Person Information Name: Yuliya Phan/New_Matt Age: 16 Years : 2005 Sex: Female PCP: Marital Status: Single Phone: Race: White Ethnicity: Not or Language: Estonian Visit Reason: Vomiting; Medical problem Acuity: 3 Enc Type: Emergency Med Service: Emergency Medicine Arrival: 12/18/2021 08:44:43 Discharge: 12/18/2021 11:30:00 LOS: 000 02:46 Checkin: 12/18/2021 08:44:43 Checkout: 12/18/2021 11:30:00 Dispo Type: Home or Self Care Address: [address] [place] [address] [place] [address] Provider Notes: History of Present Illness ? Patient presents with a chief complaint of nausea, vomiting.? She states that symptoms have been ongoing for about 4 days.? She is also having some?abdominal pain that is diffuse in nature. ?She denies any diarrhea.? She denies any sick contacts. ?She thinks?she may be having stomach virus. Review of Systems Constitutional: [No fevers, chills, sweats] Eye: [No recent visual problems] ENMT: [No ear pain, nasal congestion, sore throat] Respiratory: [No shortness of breath, cough] Cardiovascular: [No Chest pain, palpitations, syncope] Gastrointestinal: [Abdominal pain, nausea, vomiting, ] Genitourinary: [No hematuria] Physical Exam General: [Alert and oriented, well nourished, no acute distress]. Eye: [, normal conjunctiva]. HENT: [Normocephalic, ]. Neck: [Supple,]. Lungs: [Clear to auscultation and percussion, non-labored respiration]. Heart: [Normal rate, regular rhythm, no murmur, gallop or edema]. Abdomen: [Soft, diffuse tenderness to palpation, non-distended, normal bowel sounds, no masses]. Musculoskeletal: [Normal range of motion and strength, no tenderness or swelling]. Skin: [Skin is warm, dry and pink, no rashes or lesions]. Neurologic: [Awake, alert, and oriented X3, CN II-XII intact]. Psychiatric: [Cooperative, appropriate mood and affect]. Diagnosis: 1:Abdominal pain; 2:Nausea & vomiting Problems No Problems Documented Smoking Status: Functional Status: Sensory Deficits: History of Falls: Mobility Assistance Prior to Admission: ADLs: Current Level of Assistance for Self-Care/Mobility: Cognitive Status: Allergies amitriptyline (Upset) Benadryl (Upset) Laboratory or Other Results This Visit (last charted value for your 12/18/2021 visit) Hematology 12/18/2021 9:48 AM WBC: 4.0 x10 RBC: 4.62 x10 Neutro Auto: 42.2 % -- Normal range between ( 45.6 and 68.4 ) Lymph Auto: 39.2 % -- Normal range between ( 28.0 and 42.0 ) [place] Auto: 11.5 % -- Normal range between ( 3.7 and 11.9 ) Eos Auto: 6.0 % -- Normal range between ( 0.0 and 5.4 ) Basophil Auto: 1.1 % -- Normal range between ( 0.0 and 1.5 ) Baso Absolute: 0.0 x10 MCV: 89.1 fL -- Normal range between ( 80.0 and 100.0 ) MCHC: 33.6 % -- Normal range between ( 31.0 and 37.0 ) Lymph Absolute: 1.6 x10 Hct: 41.2 % -- Normal range between ( 36.0 and 46.0 ) [place] Absolute: 0.5 x10 MCH: 30.0 pg -- Normal range between ( 27.0 and 35.0 ) Neutro Absolute: 1.7 x10 Hgb: 13.8 g/dL -- Normal range between ( 12.0 and 16.0 ) Mean Platelet Volume: 8.5 fL -- Normal range between ( 7.5 and 11.5 ) Platelet: 314 x10 Eos Absolute: 0.2 x10 RDW: 14.6 % -- Normal range between ( 11.6 and 14.8 ) Urinalysis 12/18/2021 9:32 AM UA Color: Yellow UA Urobilinogen: 0.2 mg/dL UA Amorph Urate: Present /HPF UA Bili: Negative UA Ketones: 5 mg/dL UA Leukocyte Esterase: Negative UA Nitrite: Negative UA Glucose: Negative mg/dL UA Protein: Negative mg/dL UA Blood: Negative UA Spec Grav: 1.025 -- Normal range between ( 1.003 and 1.035 ) UA pH: 6.0 UA Clarity: Clear UA Source: Clean Catch UA WBC Qual: Absent /HPF UA RBC Qual: Absent /HPF UA Squepi Cells Qual: 1-4 /HPF UA Mucus: Present /LPF Chemistry 12/18/2021 9:48 AM Creatinine Lvl: 0.9 mg/dL -- Normal range between ( 0.6 and 1.2 ) BUN: 11 mg/dL -- Normal range between ( 7 and 25 ) Glucose Lvl: 78 mg/dL -- Normal range between ( 70 and 99 ) Potassium Lvl: 3.8 mmol/L -- Normal range between ( 3.4 and 4.8 ) AST: 17 IU/L -- Normal range between ( 13 and 39 ) ALT: 14 IU/L -- Normal range between ( 7 and 52 ) Sodium Lvl: 139 mmol/L -- Normal range between ( 136 and 145 ) Lipase Lvl: 25 IU/L -- Normal range between ( 11 and 82 ) Calcium Lvl: 9.2 mg/dL -- Normal range between ( 8.6 and 10.3 ) Albumin Lvl: 4.0 g/dL -- Normal range between ( 3.7 and 5.3 ) Total Protein: 6.6 g/dL -- Normal range between ( 6.0 and 8.3 ) Bili Total: 0.3 mg/dL -- Normal range between ( 0.3 and 1.0 ) Alk Phos: 79 IU/L -- Normal range between ( 34 and 104 ) Chloride: 105 IU/L -- Normal range between ( 98 and 107 ) CO2: 26 mmol/L -- Normal range between ( 21 and 31 ) Anion Gap: 12 -- Normal range between ( 7 and 17 ) Estimated GFR: >60 m (more content not included)... Normal [facility] ED Note-Physicianon 12-19-19 ED Note-Physician Chief Complaint I have the stomach flu, vomiting History of Present Illness Patient presents with a chief complaint of nausea, vomiting. She states that symptoms have been ongoing for about 4 days. She is also having some abdominal pain that is diffuse in nature. She denies any diarrhea. She denies any sick contacts. She thinks she may be having stomach virus. Review of Systems Constitutional: [No fevers, chills, sweats] Eye: [No recent visual problems] ENMT: [No ear pain, nasal congestion, sore throat] Respiratory: [No shortness of breath, cough] Cardiovascular: [No Chest pain, palpitations, syncope] Gastrointestinal: [Abdominal pain, nausea, vomiting, ] Genitourinary: [No hematuria] Physical Exam General: [Alert and oriented, well nourished, no acute distress]. Eye: [, normal conjunctiva]. HENT: [Normocephalic, ]. Neck: [Supple,]. Lungs: [Clear to auscultation and percussion, non-labored respiration]. Heart: [Normal rate, regular rhythm, no murmur, gallop or edema]. Abdomen: [Soft, diffuse tenderness to palpation, non-distended, normal bowel sounds, no masses]. Musculoskeletal: [Normal range of motion and strength, no tenderness or swelling]. Skin: [Skin is warm, dry and pink, no rashes or lesions]. Neurologic: [Awake, alert, and oriented X3, CN II-XII intact]. Psychiatric: [Cooperative, appropriate mood and affect]. Vitals & Measurements Additional Vitals No qualifying data available. Procedure No qualifying data available. ASA Documentation Medical Decision Making Patient seen and evaluated for abdominal pain, nausea and vomiting. No acute GI etiology is identified. Screening labs and imaging studies are reassuring. Patient may have some constipation. Will discharge home with Zofran and MiraLAX. Assessment/Plan 1. Abdominal pain 2. Nausea & vomiting Orders: ondansetron, 1 tabs, Oral, TID, X 5 days, # 15 tabs, 0 Refill(s), 12/23/21 11:10:00 EDT, Pharmacy: [facility]/pharmacy #[id number] polyethylene glycol 3350, 17 g, Oral, Daily, X 7 days, # 119 g, 0 Refill(s), 12/25/21 11:11:00 EDT, Pharmacy: [facility]/pharmacy #[id number] - ED Professional Level 4 Discharge Patient Refresh vitals and sections below: Problem List/Past Medical History Ongoing Anxiety Asthma Depression IBS (irritable bowel syndrome) Mesenteric adenitis Migraines Historical No qualifying data Procedure/Surgical History Adenoidectomy Tonsillectomy Medications Inpatient No active inpatient medications Home No active home medications Allergies No active allergies Social History Alcohol Never Substance Abuse Denies All Tobacco Never (less than 100 in lifetime) Use:. Diagnostic Results Computerized Tomagraphy CT Abdomen Pelvis w/ IV Contrast 12/18/21 11:03:46 IMPRESSION: 1. There may be constipation. No gut obstruction. No acute colonic findings, no diverticula, negative appendix. 2. Fatty non enlarged liver. No focal acute liver lesion, one small hemangioma at the falciform ligament. Negative gallbladder. No biliary dilatation. 3. Rest of exam negative. Signed By: Adam CARDOZO, [place] Electronically signed by Mando Conde MD 12/18/21 11:16 EDT Normal [facility] Lipaseon 12-18-2021 Lipase Lvl 25 IU/L Normal [facility] Comment on above: Performed By: #### L IP #### [address] [address] S Preg Qlon 12-18-2021 Serum Preg Negative Normal [facility] Comment on above: Result Comment: The hCG Combo Rapid Test has a sensitivity of 10 mIU/mL in serum and is capable of detecting as early as 1 day after the first missed menses. Performed By: #### S PTQ #### [address] [address] UA w Culture if Ind Marsha Color (U) Yellow Normal [facility] Comment on above: Performed By: #### U CIM #### [address] [address] Glucose (U) [Mass/Vol] Negative Normal Negative [facility] Comment on above: Performed By: #### U CIM #### [place] [address] Ketones Ql (U) 5 mg/dL Abnormal Negative [facility] Comment on above: Performed By: #### U CIM #### [place] [address] UA Blood Negative Normal Negative [facility] Comment on above: Performed By: #### U CIM #### [place] [address] UA Clarity Clear Normal [facility] Comment on above: Performed By: #### U CIM #### [place] [address] UA Leukocyte Esterase Negative Normal Negative [facility] Comment on above: Performed By: #### U CIM #### [place] [address] UA Nitrite Negative Normal Negative [facility] Comment on above: Performed By: #### U CIM #### [place] [address] UA pH 6.0 Normal 4.5 - 7.8 [facility] Comment on above: Performed By: #### U CIM #### [place] [address] UA Protein Negative Normal Negative [facility] Comment on above: Performed By: #### U CIM #### [place] [address] UA Source Clean Catch Normal [facility] Comment on above: Performed By: #### U CIM #### [place] [address] UA Spec Grav 1.025 Normal 1.003-1.03 5 [facility] Comment on above: Performed By: #### U CIM #### [place] [address] UA Urobilinogen 0.2 mg/dL Normal 0.2 - 1.0 [facility] Comment on above: Performed By: #### U CIM #### [place] [address] Urobilinogen (U) [Mass/Vol] Negative Normal Negative [facility] Comment on above: Performed By: #### U CIM #### [address] [address] US THYROIDon 11-24-2021 US THYROID ORIGINAL EXAMINATION: ULTRASOUND OF THE THYROID WITH COLOR DOPPLER FLOW EVALUATION11/22/2021 11:20 am ULTRASOUND OF THE THYROID: COMPARISON: Is HISTORY: ORDERING SYSTEM PROVIDED HISTORY: Reason for Exam: thyroid looks and feels enlarged upon exam, FINDINGS: The right and left lobes are within normal limits of size 3.8 x 0.9 x 1.1 cm and 3.6 x 0.9 x 1.3 cm. The isthmus is 0.1 cm. The gland is homogeneous with normal vascularity. No suspicious focal thyroid abnormality is seen. Estimated total number of nodules greater than or equal to 1 cm: 0 IMPRESSION: Normal thyroid ultrasound. Interpreted by: Jamil Monroe MD Preliminary Report By: Jamil Monroe MD Electronically signed By Jamil Monroe MD Dictated Date: 11/24/2021 2:09:44 PM Prelim Date: 11/24/2021 2:10:52 PM Sign Date: 11/24/2021 2:10:52 PM Ordering Provider: YULIYA Barrientos [facility] ([place]) FT4on 11-13-2021 Free T4 [Mass/Vol] 1.06 ng/dL Normal 0.76-1.46 [facility] ([place]) Comment on above: Performed By: #### G IVON LAMAS, RFP #### [facility] [address] [place] [address] LABORATORYOrdered By: Vernell Washington on 11-13-2021 Free T4 [Mass/Vol] 1.06 ng/dL Invalid Interpretation Code 0.76 - 1.46 ng/dL AO ADM SS TSH Qn 3.10 m[IU]/L Invalid Interpretation Code 0.36 - 3.74 mcIU/mL AO ADM SS TSHon 11-13-2021 TSH Qn 3.10 m[IU]/L Normal 0.36-3.74 [facility] ([place]) Comment on above: Performed By: #### G IVON LAMAS, RFP #### [facility] [address] [place] [id number] Absolute lymphocyte counton 10-31-2021 Lymphocytes Auto (Unsp spec) [#/Vol] 2.79 10*3/uL 0.83-4.51 [facility] Work Phone: Basophil percentageon 2021 Basophils/100 WBC (Bld) 0.5 % 0-1 [facility] Work Phone: Eosinophils/100 WBC (Bld) 3.0 % 0-3 [facility] Work Phone: Neutrophils (Bld) [#/Vol] 5.1 10*3/uL 2.0-7.7 [facility] Work Phone: Neutrophils/100 WBC (Bld) 58.7 % 34-64 [facility] Work Phone: WBC (Bld) [#/Vol] 8.7 10*3/uL 4.5-13.0 [facility] Work Phone: Blood erythrocytes count (nu mber/volume)on 10-31-2021 RBC (Bld) [#/Vol] 4.84 10*6/uL 4.1-4.8 [facility] Work Phone: Blood hemoglobin measurement (mass/volume)on 10-31-2021 Hemoglobin (Bld) [Mass/Vol] 14.3 g/dL 12.0-15.0 [facility] Work Phone: Blood lymphocytes/100 leukoc yteson 10-31-2021 Lymphocytes/100 WBC (Bld) 31.9 % 25-45 [facility] Work Phone: Blood monocytes/100 leukocyt eson 10-31-2021 Monocytes/100 WBC (Bld) 5.6 % 3-6 [facility] Work Phone: Blood platelet mean volumeon 10-31-2021 Platelet mean volume (Bld) [Entitic vol] 10.1 fL 6.2-12.0 [facility] Work Phone: Determination of erythrocyte mean corpuscular volume (MCV)on 10-31-2021 MCV (RBC) [Entitic vol] 90.1 fL 78-96 [facility] Work Phone: Hematocrit Auto (Bld) [Volum e fraction]on 10-31-2021 Hematocrit (Bld) [Volume fraction] 43.6 % 37-46 [facility] Work Phone: [phone] Laboratory - Hematology and Cell countson 10-31-2021 Erythrocyte distribution width (RBC) [Entitic vol] 45.1 fL 35.1-43.9 [facility] Work Phone: Erythrocyte distribution width (RBC) [Ratio] 13.5 % 11.6-14.6 [facility] Work Phone: Immature granulocytes/100 WBC (Bld) 0.300 % 0.0-0.9 [facility] Work Phone: Comment on above: IG% - Immature Granu locytes (promyelocytes, myelocytes and metamyelocytes) > 1% indicates that a LEFT SHIFT is Present. MCH (RBC) [Entitic mass] 29.5 pg 25.0-35.0 [facility] Work Phone: Nucleated RBC/100 WBC (Bld) [Ratio] 0 % 0-5 [facility] Work Phone: MCHC Auto (RBC) [Mass/Vol]on 10-31-2021 MCHC (RBC) [Mass/Vol] 32.8 g/dL 32-36 [facility] Work Phone: Platelets bldon 10-31-2021 Platelets (Bld) [#/Vol] 407 10*3/uL 150-450 [facility] Work Phone: CSon 07-17-[address] [facility] [facility] Normal [facility] DATE OF SERVICE: SUBJECTIVE: The patient is here with laceration above her left eye following an incident with a softball that struck her in the face. OBJECTIVE: Approximate 2.5 cm laceration noted above the left eyebrow. ASSESSMENT: Laceration. PLAN: The area was cleansed, numbed with 1% lidocaine, and sutured with 5-0 Ethilon x6 sutures. Wound is dressed. The patient is to have sutures removed in 7-10 days. She is to be checked if there is any increasing redness or pain. She will be having sutures removed at her physician over in [facility]. Alfonso Perez MD [place]/[id number] [facility] File#: [id number] [facility] PATIENT NAME: YULIYA PHAN [address] [facility] MEDICAL REC #: [id number] [place] ADMIT DATE: [facility] PH[facility]ICIAN END OF DOCUMENT / CHANGE LOG FOLLOWS Last Edited By Jayshree. Signed By Alfonso Perez MD #NICHOLASUTH Alfonso Perez MD #NAUTH on 07/25/2020 18:56 ET on 07/25/2020 18:56 ET Revision Number - 2 Verified/Reviewed by 07/25/20 1856 COAR [facility] PATIENT NAME: YULIYA PHAN MEDICAL REC #: [id number] [place], [place] ADMIT DATE: [facility]IC[facility] Vital Signs Date Time Vital Sign Value Performing Clinician Facility 01-10-2023 14:10-0400 Body height 165.1 cm [facility] 01-10-2023 14:10-0400 Body mass index (BMI) [Percentile] Per age and sex 91.8 % [facility] 01-10-2023 14:10-0400 Body mass index (BMI) [Ratio] 29 kg/m2 [facility] 01-10-2023 14:10-0400 Body temperature 98.7 [degF] [facility] 01-10-2023 14:10-0400 Body weight 79.28 kg [facility] 01-10-2023 14:10-0400 Diastolic blood pressure 69 mm[Hg] [facility] 01-10-2023 14:10-0400 Heart rate 78 /min [facility] 01-10-2023 14:10-0400 Respiratory rate 14 /min [facility] 01-10-2023 14:10-0400 SaO2% (BldA) [Mass fraction] 99 % [facility] 01-10-2023 14:10-0400 Systolic blood pressure 109 mm[Hg] [facility] 04-16-2022 18:30-0500 Body temperature 97.7 [degF] Klaus Moscoso MD Work Phone: [facility] 04-16-2022 18:30-0500 Diastolic blood pressure 70 mm[Hg] Klaus Moscoso MD Work Phone: [facility] 04-16-2022 18:30-0500 Heart rate 88 /min Klaus Moscoso MD Work Phone: [facility] 04-16-2022 18:30-0500 Respiratory rate 17 /min Klaus Moscoso MD Work Phone: [facility] 04-16-2022 18:30-0500 SaO2% (BldA) [Mass fraction] 99 % Klaus Moscoso MD Work Phone: [facility] 04-16-2022 18:30-0500 Systolic blood pressure 127 mm[Hg] Klaus Moscoso MD Work Phone: [facility] 04-16-2022 09:04-0500 Body height 166.5 cm Klaus Moscoso MD Work Phone: [facility] 04-16-2022 09:04-0500 Body mass index (BMI) [Percentile] Per age and sex 87.74 % Klaus Moscoso MD Work Phone: [facility] 04-16-2022 09:04-0500 Body mass index (BMI) [Ratio] 26.87 kg/m2 Klaus Moscoso MD Work Phone: [facility] 04-16-2022 09:04-0500 Body weight 74.5 kg Klaus Moscoso MD Work Phone: [facility] 02-11-2021 21:28-0400 Body height 165 cm KEVIN LAUREANOKRISTEL DO [facility] 02-11-2021 21:28-0400 Body temperature 98.24 [degF] KEVIN SRIDEVIKA DO [facility] 02-11-2021 21:28-0400 Body weight 68.2 kg KEVIN DURESKA DO [facility] 02-11-2021 21:28-0400 Diastolic blood pressure 70 mm[Hg] KEVIN LAUREANOKA DO [facility] 02-11-2021 21:28-0400 Heart rate 58 /min KEVIN LAUREANOKA DO [facility] 02-11-2021 21:28-0400 Respiratory rate 16 /min KEVIN TERRELL DO [facility] 02-11-2021 21:28-0400 Systolic blood pressure 115 mm[Hg] KEVIN TERRELL DO [facility] Encounters Encounter Date Encounter Type Care Provider Facility Start: 12-07-2024 End: 12-11-2024 ambulatory ALLYN HERNANDEZ SHELL REPRINT OPERATOR-BACKEND DEVELOPER Facility:[facility] Start: 12-07-2024 End: 12-11-2024 Outreach Lab ALLYN HERNANDEZ SHELL REPRINT OPERATOR-BACKEND DEVELOPER [facility] Start: 12-06-2024 End: 12-06-2024 ambulatory Allyn Hernandez ASSISTANT BROKER Facility:[facility] Start: 10-04-2024 End: 10-08-2024 ambulatory ALLYN HERNANDEZ SHELL REPRINT OPERATOR-BACKEND DEVELOPER Facility:[facility] Start: 10-04-2024 End: 10-08-2024 Outreach Lab ALLYN HERNANDEZ SHELL REPRINT OPERATOR-BACKEND DEVELOPER [facility] Start: 08-30-2024 End: 08-30-2024 ambulatory Allyn Hernandez ASSISTANT BROKER Facility:[facility] Start: 06-01-2024 End: 06-01-2024 ambulatory Allyn Hernandez ASSISTANT BROKER Facility:[facility] Start: 03-31-2024 End: 03-31-2024 ambulatory Allyn Hernandez ASSISTANT BROKER Facility:[facility] Start: 05-22-2023 End: 05-22-[address] [facility] JODIE [facility] Start: 01-10-2023 End: 01-10-2023 Emergency department patient visit [facility] Work Phone: Start: 08-14-2022 End: 08-14-2022 Emergency department patient visit ALLYN HERNANDEZ SHELL REPRINT OPERATOR-BACKEND DEVELOPER Facility:[facility] Start: 06-27-2022 End: 06-27-2022 ambulatory ALLYN HERNANDEZ [facility] Start: 06-23-2022 End: 06-23-2022 ambulatory KLAUS MOSCOSO [facility] Start: 04-25-2022 End: 04-30-[address] ANTONIA DHALIWAL MD Facility:[facility] Start: 04-25-2022 End: 04-25-2022 Subsequent hospital visit by physician Antonia Dhaliwal MD Work Phone: [facility] Comment on above: Gastroesophageal ref lux disease without esophagitis Start: 04-16-2022 End: 04-16-2022 Preprocedural examination done Klaus Moscoso MD Work Phone: [facility] Start: 04-16-2022 End: 04-16-2022 Subsequent hospital visit by physician Klaus Moscoso MD Work Phone: [facility] Comment on above: Macromastia (Primary Dx); Pre-operative examination Start: 02-17-2022 End: 02-17-2022 ambulatory Physician No [facility] Start: 02-12-2022 End: 02-12-2022 ambulatory Physician [facility] Start: 12-30-2021 End: 12-30-2021 ambulatory Physician [facility] Start: 12-26-2021 End: 12-26-2021 ambulatory Physician [facility] Start: 12-18-2021 End: 12-18-2021 Emergency department patient visit MD Mando Conde Facility:[facility] Start: 11-22-2021 End: 11-23-2021 ambulatory YULIYA SORTO SHELL REPRINT OPERATOR-BACKEND DEVELOPER Facility:[facility] Start: 11-22-2021 End: 11-22-2021 Patient encounter procedure YULIYA SORTO SHELL REPRINT OPERATOR-BACKEND DEVELOPER [facility] Start: 11-13-2021 End: 11-14-2021 ambulatory ALLYN HERNANDEZ SHELL REPRINT OPERATOR-BACKEND DEVELOPER Facility:[facility] Start: 11-13-2021 End: 11-13-2021 Patient encounter procedure ALLYN HERNANDEZ SHELL REPRINT OPERATOR-BACKEND DEVELOPER [facility] Start: 11-01-2021 End: 11-01-2021 Patient encounter procedure [facility], [facility] Start: 10-31-2021 End: 10-31-2021 Patient encounter procedure [facility] Start: 02-11-2021 End: 02-11-2021 Emergency department patient visit KEVIN TERRELL [facility] Start: 12-06-2020 End: 02-07-2021 Physical therapy management ALLYN HERNANDEZ SHELL REPRINT OPERATOR-BACKEND DEVELOPER [facility] Start: 07-17-2020 Patient encounter procedure Th lovely Perez MD Work Phone: [facility] Start: 07-17-2020 Progress Note Alfonso driver MD Work Phone: IF [facility] Procedures Date Procedure Procedure Detail Performing Clinician Start: 04-25-2022 [facility] Ma brandan Dhaliwal MD Work Phone: Start: 04-16-2022 Renal function panel Ri shoshana Moscoso MD Work Phone: Start: 04-16-2022 Urine test visual color cmprsn meths Kerri Aimee SHELL REPRINT OPERATOR-BACKEND DEVELOPER Work Phone: Start: 11-01-2021 Pelvic echography Start: 11-01-2021 Transvaginal echography Tonsillectomy ALLYN DEBRA SHELL REPRINT OPERATOR-BACKEND DEVELOPER Plan of Treatment Date Care Activity Detail Author Start: 06-27-2022 End: 06-27-2022 ambulatory 06/27/2022 Telehealth Neurology [place] [address] Neurology [place] Start: 04-28-2022 End: 04-28-2022 Patient encounter procedure 04/28/2022 Office Visit Plastic Surgery [place] [address] Plastic [facility] [place] Start: 04-22-2022 End: 04-22-2022 Patient encounter procedure 04/22/2022 Office Visit Plastic Surgery Mary Etienne, SHELL REPRINT OPERATOR-BACKEND [place] [address] Plastic [facility] [place] Start: 04-16-2022 End: 04-16-2022 BREAST REDUCTION BREAST REDUCTION Macromastia 04/16/2022 10:47 AM EST [facility] Start: 12-19-2021 Influenza vaccination INFLUENZA (Sea son Ended) [facility] Start: 06-20-2021 COVID-19 (4 - Booste r for Pfizer series) COVID-19 (4 - Booster for Pfizer series) [facility] Start: 2021 CHLAMYDIA SCREENING (18-24) CHLAMYDIA SCREENING (18-24) [facility] Start: 2021 GC (GONORRHEA) SCREE TRAVIS (18-24) GC (GONORRHEA) SCREENING (18-24) [facility] Start: 2021 Hearing Screening Hearing Screening [facility] Start: 2021 HEPATITIS C SCREENING HEPATITIS C [facility] Start: 2021 HIV SCREENING HIV SCREENING [facility] Start: 2019 MenACWY (1 - 2-dose series) MenACWY (1 - 2-dose series) [facility] Start: 2019 MenB (1 of 2 - MenB 2-Dose Series Bexsero) MenB (1 of 2 - MenB 2-Dose Series Bexsero) [facility] Start: 2019 MENINGOCOCCAL CONJUG ATE (1 - 2-dose series) MENINGOCOCCAL CONJUGATE (1 - 2-dose series) [facility] Start: 2018 Vision Screening Vision Screening [facility] Start: 2017 PEDS TO ADULT TRANSI TION ANNUAL ASSESSMENT PEDS TO ADULT TRANSITION ANNUAL ASSESSMENT [facility] Start: 2015 Adult depression screening assessment DEPRESSION SCREENING [facility] Start: 2015 PEDS TO ADULT TRANSI TION INITIAL DISCUSSION PEDS TO ADULT TRANSITION INITIAL DISCUSSION [facility] Start: 2014 HPV (1 - 2-dose series) HPV (1 - 2-d ose series) [facility] Start: 2014 HPV VACCINE (1 - 2-d ose series) HPV VACCINE (1 - 2-dose series) [facility] Start: 2010 Tetanus Diphtheria a nd Pertussis Vaccines (1 - Tdap) Tetanus Diphtheria and Pertussis Vaccines (1 - Tdap) [facility] Start: 2010 Urine microalbumin profile DTAP,TDAP,TD (1 - Tdap) [facility] Start: 2008 COVID-19 VACCINE (#1) COVID-19 VACCI NE (#1) [facility] Start: 2004 Hepatitis A (1 of 2 - 2-dose series) Hepatitis A (1 of 2 - 2-dose series) [facility] Start: 2004 MMR (1 of 1 - Standa rd series) MMR (1 of 1 - Standard series) [facility] Start: 2004 MMR (1 of 2 - Standa rd series) MMR (1 of 2 - Standard series) [facility] Start: 2004 Varicella (1 of 2 - 2-dose childhood series) Varicella (1 of 2 - 2-dose childhood series) [facility] Start: 2003 Hepatitis B (1 of 3 - 3-dose series) Hepatitis B (1 of 3 - 3-dose series) [facility] Routine 04/25/2022 1:38 PM EST [facility] Work Phone: End: 04-16-2022 HCG, Urine HCG, Urine Lab Routine For lab collect this frequency defaults to the next routine lab draw time. Routine times: 0600; 1100; 1400; 1900; 2200 for 1 Occurrences starting 04/16/2022 until 04/16/2022 [facility] Work Phone: Comment on above: For lab collect this frequency defaults to the next routine lab draw time. Routine times: 0600; 1100; 1400; 1900; 2200 for 1 Occurrences starting 04/16/2022 until 04/16/2022 Patient Education ED, Migraine (Classical ) [facility] Work Phone: Patient referral [facility] Work Phone: Surgical Pathology L ab Test Surgical Pathology Lab Test Lab Timed Macromastia Release Upon Ordering for 1 Occurrences starting 04/16/2022 [facility] Work Phone: Comment on above: Release Upon Orderin g for 1 Occurrences starting 04/16/2022 Immunizations Immunization Date Immunization Notes Care Provider [facility] 01-27-2024 influenza virus vacc ine, unspecified formulation ALLYN HERNANDEZ SHELL REPRINT OPERATORBizzabo [facility] 08-20-2023 hepatitis B vaccine, adult dosage; Translations: [Engerix-B] ALLYN HERNANDEZ SHELL REPRINT OPERATORBizzabo [facility] 02-01-2023 influenza virus vacc ine, unspecified formulation ALLYN HERNANDEZ SHELL REPRINT OPERATORBizzabo [facility] 02-01-2022 influenza virus vacc ine, unspecified formulation ALLYN HERNANDEZ SHELL REPRINT OPERATORBizzabo [facility] 04-25-2021 COVID-19, mRNA, LNP- S, PF, 30 mcg/0.3 mL dose; Translations: [Dibbz COVID-19 Vaccine] ALLYN HERNANDEZ SHELL REPRINT OPERATORBizzabo [facility] 12-31-2020 influenza virus vacc ine, unspecified formulation ALLYN DEBRA SHELL REPRINT OPERATOR-BACKEND DEVELOPER [facility] 08-27-2020 SARS-CoV-2 mRNA (tozinameran) vaccine ALLYN DEBRA SHELL REPRINT OPERATOR-BACKEND DEVELOPER [facility] Comment on above: Result Comment: 2021: TPVAL 08-06-2020 SARS-CoV-2 mRNA (tozinameran) vaccine ALLYN ALFAROMER SHELL REPRINT OPERATOR-BACKEND DEVELOPER [facility] Comment on above: Result Comment: 2021: TPVAL 10-27-2019 meningococcal oligosaccharide (groups A, C, Y and W-135) diphtheria toxoid conjugate vaccine (MCV4O); Translations: [Menveo] ALLYN HERNANDEZ SHELL REPRINT OPERATOR-BACKEND DEVELOPER [facility] 07-31-2015 Human Papillomavirus Quadval ALLYN DEBRA SHELL REPRINT OPERATOR-BACKEND DEVELOPER [facility] 04-19-2015 Human Papillomavirus Quadval ALLYN DEBRA SHELL REPRINT OPERATOR-BACKEND DEVELOPER [facility] 02-06-2015 Human Papillomavirus Quadval ALLYN DEBRA SHELL REPRINT OPERATOR-BACKEND DEVELOPER [facility] 02-06-2015 meningococcal polysaccharide (groups A, C, Y and W-135) diphtheria toxoid conjugate vaccine (MCV4P) ALLYN HERNANDEZ SHELL REPRINT OPERATOR-BACKEND DEVELOPER [facility] 02-06-2015 tetanus toxoid, redu sunny diphtheria toxoid, and acellular pertussis vaccine, adsorbed ALLYN HERNANDEZ SHELL REPRINT OPERATOR-BACKEND DEVELOPER [facility] 04-22-2010 varicella virus vaccine TAMERA MAI HERNANDEZ SHELL REPRINT OPERATOR-BACKEND DEVELOPER [facility] 04-24-2008 diphtheria, tetanus toxoids and acellular pertussis vaccine ALLYN DEBRA SHELL REPRINT OPERATOR-BACKEND DEVELOPER [facility] 04-24-2008 poliovirus vaccine, inactivated ALLYN DEBRA SHELL REPRINT OPERATOR-BACKEND DEVELOPER [facility] 10-20-2007 hepatitis A vaccine, pediatric dosage, unspecified formulation ALLYN DEBRA SHELL REPRINT OPERATOR-BACKEND DEVELOPER [facility] 10-20-2007 measles/mumps/rubell a virus vaccine ALLYN DEBRA SHELL REPRINT OPERATOR-BACKEND DEVELOPER [facility] 04-21-2007 hepatitis A vaccine, pediatric dosage, unspecified formulation ALLYN DEBRA SHELL REPRINT OPERATOR-[facility] 11-06-2004 diphtheria, tetanus toxoids and acellular pertussis vaccine ALLYN DEBRA SHELL REPRINT OPERATOR-BACKEND DEVELOPER [facility] 11-06-2004 haemophilus influenz ae type b vaccine, PRP-T conjugate ALLYNMAI HERNANDEZ SHELL REPRINT OPERATOR-BACKEND DEVELOPER [facility] 08-06-2004 measles/mumps/rubell a virus vaccine ALLYNMAI HERNANDEZ SHELL REPRINT OPERATOR-BACKEND DEVELOPER [facility] 08-06-2004 pneumococcal 20-viry nt conjugate vaccine ALLYNMAI HERNANDEZ SHELL REPRINT OPERATOR-BACKEND DEVELOPER [facility] 04-30-2004 varicella virus vaccine TAMERA MAI HERNANDEZ SHELL REPRINT OPERATOR-BACKEND DEVELOPER [facility] 2003 diphtheria, tetanus toxoids and acellular pertussis vaccine ALLYNMAI HERNANDEZ SHELL REPRINT OPERATOR-BACKEND DEVELOPER [facility] 2003 haemophilus influenz ae type b vaccine, PRP-T conjugate ALLYN ALFAROMER SHELL REPRINT OPERATOR-BACKEND DEVELOPER [facility] 2003 pneumococcal 20-viry nt conjugate vaccine ALLYN ALFAROMER SHELL REPRINT OPERATOR-BACKEND DEVELOPER [facility] 2003 poliovirus vaccine, inactivated ALLYN HERNANDEZ SHELL REPRINT OPERATOR-BACKEND DEVELOPER [facility] 2003 diphtheria, tetanus toxoids and acellular pertussis vaccine ALLYNFREEDOM ALFAROMER SHELL REPRINT OPERATOR-BACKEND DEVELOPER [facility] 2003 haemophilus influenz ae type b vaccine, PRP-T conjugate ALLYN ALFAROMER SHELL REPRINT OPERATOR-BACKEND DEVELOPER [facility] 2003 hepatitis B vaccine, unspecified formulation ALLYNFREEDOM ALFAROMER SHELL REPRINT OPERATOR-BACKEND DEVELOPER [facility] 2003 pneumococcal 20-viry nt conjugate vaccine ALLYN ALFAROMER SHELL REPRINT OPERATOR-BACKEND DEVELOPER [facility] 2003 poliovirus vaccine, inactivated ALLYN ALFAROMER SHELL REPRINT OPERATOR-BACKEND DEVELOPER [facility] 2003 diphtheria, tetanus toxoids and acellular pertussis vaccine ALLYN DEBRA SHELL REPRINT OPERATOR-BACKEND DEVELOPER [facility] 2003 haemophilus influenz ae type b vaccine, PRP-T conjugate ALLYN ALFAROMER SHELL REPRINT OPERATOR-BACKEND DEVELOPER [facility] 2003 hepatitis B vaccine, unspecified formulation ALLYN DEBRA SHELL REPRINT OPERATOR-BACKEND DEVELOPER [facility] 2003 pneumococcal 20-viry nt conjugate vaccine ALLYN ALFAROMER SHELL REPRINT OPERATOR-BACKEND DEVELOPER [facility] 2003 poliovirus vaccine, inactivated ALLYN DEBRA SHELL REPRINT OPERATOR-BACKEND DEVELOPER [facility] 2003 hepatitis B vaccine, unspecified formulation ALLYN DEBRA SHELL REPRINT OPERATOR-BACKEND DEVELOPER [facility] Payers Date Payer Category Payer Private Health Insurance [id number] 2024 Self-pay [id number] 2021 Unknown [id number] 2021 Unknown 2014 Private Health Insurance [id number] 2012 Unknown HOSPITAL/MEDICAL GENERIC MEDICAL GENERIC [id number] 2012-Present [phone] [address] [facility] [address] [place] [address] Indemnity [id number] 2012 Unknown [employer] BLUE [employer]E SS PPO [id number] 2012-Present [phone] [facility] [id number] [place] [address] PPO [id number] 2003 Unknown [id number] 2.16.840.1.645629.3.579. 2.196 2003 Unknown [id number] 2.16.840.1.946844.3.579. 2.93 2003 Unknown [id number] 2.16.840.1.374329.3.579. 2.93 2003 Unknown [id number] 2.16.840.1.013345.3.579. 2.93 2003 Unknown [id number] 2.16.840.1.381536.3.579. 2.93 2003 Unknown [id number] 2.16.840.1.792236.3.579. 2.627 2003 Unknown [id number] 2.16.840.1.345001.3.579. 2.627 2003 Unknown [id number] 2.16.840.1.449705.3.579. 2.627 2003 Unknown [id number] 2.16.840.1.725620.3.579. 2.627 2003 Unknown [id number] 2.16.840.1.283195.3.579. 2.479 2003 Unknown [id number] 2.16.840.1.924078.3.579. 2.479 2003 Unknown [id number] 2.16.840.1.548890.3.579. 2.479 2003 Unknown [id number] 2.16.840.1.714217.3.579. 2.627 2003 Unknown [id number] 2.16.840.1.346665.3.579. 2.627 Private Health Insurance [facility] [id number] Unknown [id number] 2.16.840.1.227500.3.579. 2.462 Unknown [id number] 2.16.840.1.959321.3.579. 2.462 Unknown [id number] 2.16.840.1.005641.3.579. 2.462 Unknown [id number] 2.16.840.1.839967.3.579. 2.462 Social History Date Type Detail Facility Start: 12-27-2018 End: 12-07-2024 Never smoked tobacco (finding) [facility] Sex Assigned At [facility] Start: 04-10-2013 Alcohol intake Not Asked [facility] Start: 2003 Sex Assigned At Not on file [facility] Start: 06-05-2021 End: 01-10-2023 Tobacco smoking status NHIS Unknown if ever smoked [facility] Start: 07-20-2018 None [facility] Start: 07-20-2018 With Family [facility] Start: 08-23-2020 Non-smoker [facility] Start: 2003 Sex Assigned At Female W [facility] Start: 10-25-2021 Tobacco use and exposure Smokeless tobacco non-user [facility] Start: 04-16-2022 End: 04-22-2022 Alcohol intake Lifetime non-drinker (finding) [facility] Start: 06-25-2018 History SDOH Alcohol Frequency 1 [facility] Start: 03-30-2022 End: 04-25-2022 Exposure to SARS-CoV-2 (event) Not sure [facility] Start: 05-27-2009 Sex Female (finding) [facility] Mental Status Date Assessment Result Facility 01-10-2023 Cognitive function Level Of Cons ciousness Awake;Alert;Appropriate;Follow s Commands [facility] Work Phone: Clinical Notes 07-17-2020 to 01-10-2023 Note Date & Type Note Facility 01-10-2023 Discharge summary Note Date/Time January 10, 2023 4:47pm [facility] Records Department [address] [place] [address] Emergency Department Summary 01/10/23 MR#: [id number] Acct: [id number] Name: YULIYA PHAN Rep #:[id number] : 2005 17 From: Brooks Romero MD PCP: Allyn Hernandez ASSIST[facility]OK[facility]-C Status:REG E R Location: ED HPI History of Present Illness Chief Complaint: Headache Narrative Narrative: Patient presents with headache for 3 days. She has chronic recurrent cephalgia,she has a history of this this feels similar. Last headache this bad was about a year ago. He has some nausea. [facility] Medical History Asthma Encounter for screening for COVID-19 IBS (irritable bowel syndrome) Migraines Home Medications pantoprazole 20 mg tablet,delayed release 20 mg PO DAILY 07/20/18 [History Last Taken Unknown] albuterol sulfate 90 mcg/actuation aerosol inhaler 1 - 2 puff inhalation Q4H PRNPRN Wheezing 10/14/18 [History Last Taken Unknown] fexofenadine 180 mg tablet 180 mg PO DAILY 10/14/18 [History Last Taken Unknown] docusate sodium 100 mg capsule 100 mg PO BID 07/02/19 [History Last Taken Unknown] magnesium oxide 400 mg PO DAILY 07/02/19 [History Last Taken Unknown] pediatric vlpnmiln-clbi-xye 1 ea PO DAILY 07/02/19 [History Last Taken Unknown] riboflavin (vitamin B2) 100 mg tablet 2 tab PO DAILY 07/02/19 [History Last Taken Unknown] sertraline 50 mg tablet 50 mg PO DAILY 07/02/19 [History Last Taken Unknown] acetaminophen 325 mg capsule (Tylenol) 325 mg PO ONCE PRN Pain 01/30/20 [History Last Taken Unknown] cyproheptadine 4 mg tablet PO 01/30/20 [History Last Taken Unknown] dapsone 7.5 % topical gel with pump topical 01/30/20 [History Last Taken Unknown] fluticasone propionate 50 mcg/actuation nasal spray,suspension 2 spray intranasal DAILY 01/30/20 [History Last Taken Unknown] ketoconazole 2 % topical cream topical 01/30/20 [History Last Taken Unknown] lactobacillus combination no.8 3 billion cell capsule (Adult Probiotic) 3,000 mmu cells PO DAILY 01/30/20 [History Last Taken Unknown] naproxen sodium 220 mg capsule 220 mg PO BID PRN 01/30/20 [History Last Taken Unknown] norethindrone-e.estradiol triphasic 0.5 mg/0.75 mg/1 mg-35 mcg tablet 1 tab PO DAILY 01/30/20 [History Last Taken Unknown] polyethylene glycol 3350 17 gram/dose oral powder 17 g PO PRN PRN Constipation 01/30/20 [History Last Taken Unknown] sumatriptan succinate 100 mg tablet mg PO 01/30/20 [History Last Taken Unknown] dicyclomine 10 mg capsule 20 mg (2 x 10 mg) PO TIDAC #20 CAPSULES 08/23/20 [Rx Last Taken Unknown] Dupixent Pen 300 mg OTHER QWEEK 02/12/21 [History Last Taken Unknown] gabapentin 02/12/21 [History Last Taken Unknown] melatonin 3 mg PO.IVFORM DAILY 02/12/21 [History Last Taken Unknown] ketorolac 10 mg tablet 10 mg PO Q6H PRN pain 3 days #12 tabs 02/15/21 [Rx Last Taken Unknown] sucralfate 1 gram tablet (Carafate) 1 g PO Q6H #28 tabs 02/18/21 [Rx Last Taken Unknown] ketorolac 10 mg tablet 10 mg PO TID PRN pain 3 days #10 tabs 06/05/21 [Rx Last Taken Unknown] Allergy/AdvReac Type Severity Reaction Status Date / Time valproic acid Allergy Unknown PT UNSURE Verified 01/10/23 14:14 OF REACTION amitriptyline Allergy Other Verified 01/10/23 14:10 divalproex sodium Allergy Rash Verified 01/10/23 14:10 [From Depakote] grass pollen Allergy Shortness Verified 01/10/23 14:10 of breath house dust Allergy Shortness Verified 01/10/23 14:10 of breath mold Allergy Shortness Verified 01/10/23 14:10 of breath diphenhydramine AdvReac Other Verified 01/10/23 14:10 [From Benadryl] Family History Other Asthma Surgical History History of tonsillectomy and adenoidectomy Social History Smoking Status: Never smoker alcohol intake: never ROS ROS ED ROS Narrative Past medical history: Reviewed Medications: Reviewed Social history: Noncontributory Review of systems: All systems negative except as indicated General: No fever Eyes: No visual changes. Some photophobia ENT: No upper airway congestion, normal voice Neck: No neck pain Cardiovascular: No chest pain Respiratory: No shortness of breath or cough Gastrointestinal: No abdominal pain, nausea vomiting or diarrhea Genitourinary: No dysuria Musculoskeletal: Denies myalgias no difficulty with ambulation Skin: No rash Neurological: No memory loss, confusion or any focal weakness. Headache as in HPI Psych: No recent behavioral changes EXAM Physical Exam Narrative Exam Narrative: Physical exam General: Well nourished, Well developed, somewhat uncomfortable Head: Normocephalic, Atraumatic Eyes: Conjunctiva not pale. Pupils are equal and reactive. ENT: Moist mucous membranes Neck: Supple, Nontender, No lymphadenopathy Cardiovascular: Regular rate, Regular rhythm Respiratory: No distress, CTA bilaterally Abdomen: Soft, Nontender, Nondistended Back: Nontender, Normal Inspection. Negative for: CVA tenderness Extremities: Nontender, No edema Skin: Normal color, No rash Neurological: Alert, Normal Strength, Normal Sensation Const Vital Signs: 01/10/23 14:10 Temperature 98.7 F Temperature Source Temporal Pulse Rate 78 Respiratory Rate 14 Blood Pressure 109/69 Blood Pressure Mean 82 Pulse Ox 99 Oxygen Delivery Method Room Air MDM MDM MDM Narrative Medical decision making narrative: Patient has chronic recurrent cephalgia. She has a normal neurological exam. Is gradual onset. Not worried about subarachnoid hemorrhage. This is likely migraine since this is what its been diagnosed with in the past. She does not meet criteria for head CT. I talked to mom also giving some of the history she is okay with not getting any imaging. Patient received a migraine cocktail and IV fluids in the emergency department. She was reevaluated and significantly improved. She was to be discharged with this quite reasonable if any changes she is to return. Discharge Plan Triage Chief Complaint: Headache ED Provider: Brooks Romero Dx/Rx/DC Orders Clinical Impression: Headache, Migraine, Nausea Instructions: ED, Migraine (Classical) Prescriptions: No Action cyproheptadine 4 mg tablet PO acetaminophen [Tylenol] 325 mg capsule 325 mg PO ONCE PRN (Reason: Pain) sumatriptan succinate 100 mg tablet PO ketoconazole 2 % cream TOPICAL dapsone 7.5 % gel with pump TOPICAL polyethylene glycol 3350 17 gram/dose powder 17 g PO PRN PRN (Reason: Constipation) Patient Comments: TAKE 17 GRAMS DISSOLVED IN WATER BY MOUTH ONCE DAILY NEEDED FOR CONSTIPATION Adult Probiotic 3 billion cell capsule 3,000 mmu cells PO DAILY Rx Instructions: administer with a meal naproxen sodium 220 mg capsule 220 mg PO BID PRN pantoprazole 20 MG tablet 20 mg PO DAILY fexofenadine 180 MG tablet 180 mg PO DAILY albuterol sulfate 1 PUFF inhaler 1 - 2 puff inhalation Q4H PRN PRN (Reason: Wheezing) norethin-e.estradiol triphasic 0.5/0.75/1 mg- 35 mcg tablet 1 tab PO DAILY pediatric pojcfvqf-rblh-kzj 1 EACH tablet,chewable 1 ea PO DAILY docusate sodium 100 MG capsule 100 mg PO BID sertraline 50 MG tablet 50 mg PO DAILY magnesium oxide 400 MG tablet 400 mg PO DAILY riboflavin (vitamin B2) 100 MG tablet 2 tab PO DAILY fluticasone propionate 50 mcg/actuation spray,suspension 2 spray INTRANASAL DAILY dicyclomine 10 MG capsule 20 mg PO TIDAC Qty: 20 0RF gabapentin melatonin 3 mg PO.IVFORM DAILY Dupixent Pen 300 mg OTHER QWEEK Rx Instructions: every other week ketorolac 10 mg tablet 10 mg PO Q6H PRN (Reason: pain) 3 Days Qty: 12 0RF sucralfate [Carafate] 1 gram tablet 1 g PO Q6H Qty: 28 0RF ketorolac 10 mg tablet 10 mg PO TID PRN (Reason: pain) 3 Days Qty: 10 0RF Primary Care Provider: Allyn Hernandez NP Referrals: Allyn Hernandez NP, ASSISTANT [facility]OK[facility]-C [Primary Care Provider] - 3-5 Days Disposition Disposition: Home, Self Care What to do if you have Problems For any increased pain, shortness of breath, bleeding, nausea or vomiting, chestpain, or any unexpected problems, contact your Primary Care Provider. Call [facility] ([phone]) or report to the closest Emergency Room. Call 911 if necessary. 01/10/23 2406 <Electronically signed by Brooks Romero MD> Cosigner Signature (if applicable): CC: ALVARO Hernandez ~ Signed [facility] Work Phone: [phone] 967-127212-28-2022 Miscellaneous Notes* Plan of Care - Mary Nicholson RN - 04/16/2022 5:46 PM EST Education completed * Op Note - Klaus Moscoso MD - 04/16/2022 5:10 PM EST Operative Note Name: Yuliya Phan Admission Date: 04/16/2022 8:39 AM Attending Provider: Klaus Moscoso MD Room/Bed: [facility] MAIN OR POOL ROOM/Pool Bed : 2005 Age: 16 y.o. Time: 5:10 PM Hosp. Day #: Hospital Day: 1 04/16/2022 Diagnosis and Procedure Pre Op Dx: Macromastia [N62] Post-Op Diagnosis Codes: * Macromastia [N62] Procedure: Procedure(s): Bilateral reduction mammoplasties Operative Staff Surgeon(s): Klaus Moscoso MD Oyster Buyer: Guerline Segura RN; Candice Ordaz RN; Ron Concepcion RN Scrub Person: Sandra Betancur; Morro Martinez; Regi Tobin Procedure Data Anesthesia: General/Pec blocks EBL: 100 mL Complications:None Drains: None Fluids: 1800 cc Crystalloids UOP 1300 cc Medications: Ancef, 1:1,000,000 epinephrine saline solution, dermabond Specimens: L breast 611 grams, R breast 605 grams to pathology Condition and Comments Condition: Stable Disposition:Recovery Additional Comments: Inferior pedicle acosta pattern Indications for Procedure Yuliya is a 16 y.o. female with symptomatic macromastia and ptosis. I am taking her for bilateral reduction mammaplasties. We discussed techniques and she wants to go with Acosta pattern. She has been on OC. We discussed therisks of clotting. We discussed the preop expectations, technique of the reduction mammaplasties, postop care, follow up schedule, and risks, benefits, and alternatives. Risks include pain, bleeding,infection, seroma, hematoma, fat necrosis, abnormal breast pathology, nipple sensory loss, nipple necrosis, need for free nipple graft, asymmetry, delayed wound healing, hypertrophic scarring, keloids, need for revision surgery, inability to breast feed in the future, DVT/PE, and risk of anesthesia. All questions answered. Informed consent obtained. Mom present. Procedure in detail She was marked in the upright position in the preop area. She was brought to the OR by anesthesia. SCD boots were placed and the she was secured on the OR table and the table adjusted. She was placedunder general endotracheal anesthesia. Anesthesia did bilateral pectoralis blocks. A fried was placed. I then reinforced the jean-baptiste. I designed a standard Acosta pattern reduction with 7 cm limbs, 8 cm inferior pedicle centered 12 cm from the midline. I used dilute epinephrine saline solution for hemostasis. The chest was prepped and draped in the usual sterile fashion. Both sides were done in the same fashion. I began by using a 38 mm cookie cutter for the new NAC position. I then incised the NAC bilaterally. I then deepithelialized the inferior pedicles. I then incised the rest of the acosta pattern jean-baptiste. I then isolated the pedicle and dissected down to the pectoralis fascia. I elevated it to the breast septum on a wide pedicle base. I then removed the medial and lateral breast parenchyma leaving about 2 cm thick flaps. I dissected superior above the pectoralis fascia to the level of the clavicle for the superior pocket. I then thinned the superior skin flaps to match the thickness. I then removed more tissue from the pedicle. I compared the two sides and weighed the specimens as I proceeded. I then temporarily closed and sat the patient upright. Therewas good size match but there was skin redundancy. I then tailor tacked the redundant skin on each side with shira. I then marked out the new NAC positions at the downslope of the prominence of thebreast mounds. I then layed her flat and incised the new NAC and the redundant skin. I opened up the closure and irrigated and obtained hemostasis. I then closed using 3-0 monocryl deep dermals, 4-0 monocryl running subcuticular, and 5-0 fast absorbing. The NAC were well perfused with no congestionor ischemia. Dermabond and steri strips were applied. Gauze, abd pads, and a surgical bra were placed. The patient was awakened, extubated, and brought back to the recovery area in satisfactory condition. I verify all sponge, needle, and instrument counts were correct. Plan: Outpatient discharge. Pain control. Breast check tonight. Ambulate TID. Shower in 48 hours. Nonwire bra for 3 months. Follow up on Thursday in PRS clinic. Klaus Moscoso MD 04/16/2022 * Nursing - Mary Niño RN - 04/16/2022 11:42 AM EST Supplies were gathered and set up before a time out was performed. I assisted with positioning/prepping the patient for bilateral PEC1 and PEC2. Ultrasound utilized, with my assistance, for needle placement. Procedure done by Dr. Estrada for post-op pain control. Time spent on this patient/[id number] minutes. Mary Niño RN * Plan of Care - Candice Ordaz RN - 04/16/2022 11:39 AM EST Problem: Anxiety, Patient/Family Goal: Effective coping Outcome: Ongoing Problem: Nausea/Vomiting Goal: Post operative nausea and vomiting Outcome: Ongoing Problem: Falls, Risk of Goal: Absence of falls Outcome: Ongoing Problem: Pain - Acute Goal: Reduced pain sensation Outcome: Ongoing Problem: Transition Readiness Goal: Knowledge of discharge instructions Outcome: [facility]ing [facility] Plan of care note* Plan of Care - Mary Nicholson RN - 04/16/2022 5:46 PM EST Education completed [facility]12-28-[facility] Procedure note* Op Note - Klaus Moscoso MD - 04/16/2022 5:10 PM EST Operative Note Name: Yuliya Phan Admission Date: 04/16/2022 8:39 AM Attending Provider: Klaus Moscoso MD Room/Bed: [facility] MAIN OR POOL ROOM/Pool Bed : 2005 Age: 16 y.o. Time: 5:10 PM Hosp. Day #: Hospital Day: 1 04/16/2022 Diagnosis and Procedure Pre Op Dx: Macromastia [N62] Post-Op Diagnosis Codes: * Macromastia [N62] Procedure: Procedure(s): Bilateral reduction mammoplasties Operative Staff Surgeon(s): Klaus Moscoso MD Oyster Buyer: Guerline Segura RN; Candice Ordaz RN; Ron Concepcion RN Scrub Person: Sandra Betancur; Morro Martinez; Regi Tobin Procedure Data Anesthesia: General/Pec blocks EBL: 100 mL Complications:None Drains: None Fluids: 1800 cc Crystalloids UOP 1300 cc Medications: Ancef, 1:1,000,000 epinephrine saline solution, dermabond Specimens: L breast 611 grams, R breast 605 grams to pathology Condition and Comments Condition: Stable Disposition:Recovery Additional Comments: Inferior pedicle acosta pattern Indications for Procedure Yuliya is a 16 y.o. female with symptomatic macromastia and ptosis. I am taking her for bilateral reduction mammaplasties. We discussed techniques and she wants to go with Acosta pattern. She has been on OC. We discussed therisks of clotting. We discussed the preop expectations, technique of the reduction mammaplasties, postop care, follow up schedule, and risks, benefits, and alternatives. Risks include pain, bleeding,infection, seroma, hematoma, fat necrosis, abnormal breast pathology, nipple sensory loss, nipple necrosis, need for free nipple graft, asymmetry, delayed wound healing, hypertrophic scarring, keloids, need for revision surgery, inability to breast feed in the future, DVT/PE, and risk of anesthesia. All questions answered. Informed consent obtained. Mom present. Procedure in detail She was marked in the upright position in the preop area. She was brought to the OR by anesthesia. SCD boots were placed and the she was secured on the OR table and the table adjusted. She was placedunder general endotracheal anesthesia. Anesthesia did bilateral pectoralis blocks. A fried was placed. I then reinforced the jean-baptiste. I designed a standard Acosta pattern reduction with 7 cm limbs, 8 cm inferior pedicle centered 12 cm from the midline. I used dilute epinephrine saline solution for hemostasis. The chest was prepped and draped in the usual sterile fashion. Both sides were done in the same fashion. I began by using a 38 mm cookie cutter for the new NAC position. I then incised the NAC bilaterally. I then deepithelialized the inferior pedicles. I then incised the rest of the acosta pattern jean-baptiste. I then isolated the pedicle and dissected down to the pectoralis fascia. I elevated it to the breast septum on a wide pedicle base. I then removed the medial and lateral breast parenchyma leaving about 2 cm thick flaps. I dissected superior above the pectoralis fascia to the level of the clavicle for the superior pocket. I then thinned the superior skin flaps to match the thickness. I then removed more tissue from the pedicle. I compared the two sides and weighed the specimens as I proceeded. I then temporarily closed and sat the patient upright. Therewas good size match but there was skin redundancy. I then tailor tacked the redundant skin on each side with shira. I then marked out the new NAC positions at the downslope of the prominence of thebreast mounds. I then layed her flat and incised the new NAC and the redundant skin. I opened up the closure and irrigated and obtained hemostasis. I then closed using 3-0 monocryl deep dermals, 4-0 monocryl running subcuticular, and 5-0 fast absorbing. The NAC were well perfused with no congestionor ischemia. Dermabond and steri strips were applied. Gauze, abd pads, and a surgical bra were placed. The patient was awakened, extubated, and brought back to the recovery area in satisfactory condition. I verify all sponge, needle, and instrument counts were correct. Plan: Outpatient discharge. Pain control. Breast check tonight. Ambulate TID. Shower in 48 hours. Nonwire bra for 3 months. Follow up on Thursday in PRS clinic. Klaus Moscoso MD 04/16/2022 [facility]12-28-2022 Nurse Note* Nursing - Mary Niño RN - 04/16/2022 11:42 AM EST Supplies were gathered and set up before a time out was performed. I assisted with positioning/prepping the patient for bilateral PEC1 and PEC2. Ultrasound utilized, with my assistance, for needle placement. Procedure done by Dr. Estrada for post-op pain control. Time spent on this patient/[id number] minutes. Mary Niño, AFSANEH [facility]12-28-2022 Plan of care note* Plan of Care - Candice Ordaz RN - 04/16/2022 11:39 AM EST Problem: Anxiety, Patient/Family Goal: Effective coping Outcome: Ongoing Problem: Nausea/Vomiting Goal: Post operative nausea and vomiting Outcome: Ongoing Problem: Falls, Risk of Goal: Absence of falls Outcome: Ongoing Problem: Pain - Acute Goal: Reduced pain sensation Outcome: Ongoing Problem: Transition Readiness Goal: Knowledge of discharge instructions Outcome: Ongoing [facility]12-28-2022 Attending History and physical note* Klaus Moscoso MD - 04/16/2022 10:34 AM EST H&P reviewed, patient examined, no changes have occured since H&P completed. Seen and examined. I haven't seen her since April 2021. She has gotten a little bigger. We discussed techniques and she wants to go with Acosta pattern. She has been on OC. We discussed the risks of clotting. We discussed the preop expectations, technique of the reduction mammaplasties, postop care, follow up schedule, and risks, benefits, and alternatives. Risks include pain, bleeding, infection, seroma, hematoma, fat necrosis, abnormal breast pathology, nipple sensory loss, nipple necrosis, need for free nipple graft, asymmetry, delayed wound healing, hypertrophic scarring, keloids, need for revision surgery, inability to breast feed in the future, DVT/PE, and risk of anesthesia. All questions answered. Informed consent obtained. Mom present. Klaus Moscoso MD 04/16/2022 Source Note - Kerri Yu APRN-CNP - 04/11/2022 10:00 AM EST PRE-OP CONSULTATION This is a telemedicine video visit requested by the patient/guardian that was performed with the patient's location at home and the provider's location at office. DATE OF SERVICE: 04/11/2022 ASSISTANT BROKER PROVIDER: CM Aguero SURGICAL DIAGNOSIS: macromastia Proposed surgery date: 04/16/2022 Proposed surgical procedure: bilateral reduction mammoplasties Advice/opinion was requested by KAMERON Correia for pre-surgical consultation. CHIEF COMPLAINT: enlarged breasts HISTORY OF PRESENT ILLNESS: Yuliya Phan is a 16 y.o. female who is being consulted via telehealth/video for perioperative evaluation. Patient has a history of migraines, anxiety, depression, GERD as well as anxiety and depression. She has had rapid growth of her breast since an early age. She has chronic back and s houlder pain due to this. Her breast size interferes with soccer that she is planning to play through college. She has tried PT and a chiropractor with minimal improvement. The history is provided bythe mother and a chart review for evaluation for surgical risk factors. MEDICAL/SURGICAL HISTORY: Past Medical History: Diagnosis Date Anxiety Depression Eczema Functional abdominal pain syndrome Uncomplicated asthma last use ~ 06/15/18 felt tight,She never had to use oral steroids, is off inhaled steroid Past Surgical History: Procedure Laterality Date COLONOSCOPY N/A 06/29/2018 COLONOSCOPY + biopsies performed by Rashmi Rodgers MD at [facility] OR TONSILLECTOMY TONSILLECTOMY AND ADENOIDECTOMY UPPER GASTROINTESTINAL ENDOSCOPY N/A 06/29/2018 ENDOSCOPY UPPER (FLEXIBLE) + biopsies performed by Rashmi Rodgers MD at [facility] OR Past hospitalizations: no DRUG/FOOD ALLERGIES: Allergies Allergen Reactions Amitriptyline Other (See Comments) Gets aggressive Apple Juice [Apple] Diarrhea Benadryl [Diphenhydramine] Other (See Comments) agitation Chicken Allergy Diarrhea Valproic Acid Rash MEDICATIONS: Outpatient Encounter Medications as of 04/11/2022 Medication Sig Dispense Refill levonorgestrel-ethinyl estradiol (SRONYX) 0.1-20 MG-MCG per tablet Take 1 Tablet by mouth daily gabapentin (NEURONTIN) 300 MG capsule Take 1 Capsule (300 mg) by mouth 2 times daily 60 Capsule 5 ondansetron (ZOFRAN-ODT) 4 MG disintegrating tablet Take 1 Tablet (4 mg) by mouth every 8 hours as needed for Nausea 45 Tablet 2 cyproheptadine (PERIACTIN) 4 MG tablet TAKE 1.5 TAB ETS BY MOUTH EVERY DAY BEDTIME 45 Tablet 6 Clascoterone (WINLEVI) 1 % CREA Apply to affected area Ubrogepant 100 MG TABS Take one at onset of migraine. Repeat once if no better in 2 hours. 10 Tablet 5 Magnesium Oxide (MAG OX) 400 (241.3 Mg) MG TABS tablet Take 1 Tablet (400 mg) by mouth daily 30 Tablet 11 vitamin B-2 (RIBOFLAVIN) 100 MG tablet Take 2 Tablets (200 mg) by mouth 2 times daily 120 Tablet 11 [DISCONTINUED] norethindrone-ethinyl estradiol (ORTHO-NOVUM 1-35 TAB) 1-35 MG- MCG per tablet Take by mouth daily pantoprazole (PROTONIX) 20 MG EC tablet Take 1 Tablet (20 mg) by mouth daily 90 Tablet 3 triamcinolone (KENALOG) 0.1 % cream Apply to affected area 3 times daily As needed 2 weeks on and 2weeks off acetaminophen (TYLENOL) 500 MG tablet Take 1 Tablet (500 mg) by mouth every 6 hours as needed for Pain busPIRone (BUSPAR) 10 MG tablet Take 1 Tablet (10 mg) by mouth 2 times daily sertraline (ZOLOFT) 100 MG tablet Take 1.5 Tablets (150 mg) by mouth melatonin 3 MG tablet Take one tablet at night 30 Tablet 1 dicyclomine (BENTYL) 10 MG capsule Take 2 Capsules (20 mg) by mouth 3 times daily as needed (pain) 120 Capsule 3 DUPIXENT 300 MG/2ML SOSY docusate sodium (COLACE) 100 MG CAPS capsule Take 1 Cap (100 mg) by mouth 2 times daily 60 Cap 5 Multiple Vitamins-Iron (MULTIVITAMIN/IRON PO) Take by mouth daily Lactobacillus (PROBIOTIC ACIDOPHILUS PO) Take by mouth daily fluticasone (FLONASE) 50 MCG/ACT nasal spray 2 Sprays by Each Nare route as needed for Allergies albuterol (PROAIR RESPICLICK) 108 (90 Base) MCG/ACT inhaler Inhale into the lungs every 6 hours as needed for Wheezing fexofenadine (BRI) 180 MG tablet Take 1 Tablet (180 mg) by mouth daily [DISCONTINUED] acetaminophen (TYLENOL) 500 MG tablet Take 2 Tablets (1,000 mg) by mouth every 6 hours as needed (Patient not taking: Reported on 04/11/2022) [DISCONTINUED] spironolactone (ALDACTONE) 50 MG Take 50 mg by mouth At bedtime [DISCONTINUED] Ubrogepant (UBRELVY) 50 MG TABS Take 50 mg within 30 minutes of migraine onset, if no better in 2 hours can take another 50 mg 12 Tablet 3 [DISCONTINUED] Magnesium Oxide (MAG OX) 400 (241.3 Mg) MG TABS tablet Take one tablet daily 90 Tablet 3 [DISCONTINUED] vitamin B-2 (RIBOFLAVIN) 100 MG capsule Take 2 Capsules (200 mg) by mouth 2 times daily 360 Capsule 3 No facility-administered encounter medications on file as of 04/11/2022. ANESTHESIA HISTORY: Difficulty with anesthesia? No Family history of difficulty with anesthesia? no Signs/symptoms of TERRENCE? no BLEEDING HISTORY: History of bleeding issues in patient? no Bleeding problems in family? no History of anemia in patient? no Sickle Cell issues in patient or family? N/A REVIEW OF SYSTEMS: Comprehensive review of systems: History obtained from Mother and the patient. General ROS: negative Psychological ROS: positive for - anxiety and depression Respiratory ROS: no cough, shortness of breath, or wheezing Cardiovascular ROS: no chest pain or dyspnea on exertion Musculoskeletal ROS: positive for - back and shoulder pain Neurological ROS: positive for - migraines Breast ROS: macromastia and ptosis A complete ROS was performed. Pertinent positives have been documented above or are in the HPI. Allother systems were negative. Recent Illnesses? no HISTORY: Noncontributory DEVELOPMENTAL HISTORY: Milestones: Not pertinent IMMUNIZATIONS: Stated as up to date, no records available SOCIAL/FAMILY HISTORY: Yuliya lives with parents and one brother Special Needs: None Preferred Language: Estonian Daycare: no School: College Smoking/Alcohol/Drug Use or Exposure: None Family History Problem Relation Age of Onset Irritable Bowel Syndrome Mother Post-op N/V Mother Irritable Bowel Syndrome Maternal Uncle Irritable Bowel Syndrome Maternal Grandmother Other Father delayed awakening Anesth Problems Neg Hx Bleeding Problem Neg Hx Amblyopia Neg Hx ChildHD Glaucoma Neg Hx ChildHD Cataract Neg Hx Glasses BF 4 Y/O Neg Hx Ptosis Neg Hx Strabismus Neg Hx VITAL SIGNS: Temp and weight obtained via home equipment/family during this Telehealth visit. Completed set of vital signs to be completed on the day of this procedure. Vitals: 04/11/22 0958 Temp: 36.4 C (97.6 F) Ht Readings from Last 1 Encounters: 10/25/21 166.4 cm (69 %, Z= 0.50)* * Growth percentiles are based on CDC (Girls, 2-20 Years) data. Wt Readings from Last 1 Encounters: 04/11/22 75.5 kg (91 %, Z= 1.36)* * Growth percentiles are based on CDC (Girls, 2-20 Years) data. No height and weight on file for this encounter. SpO2 Readings from Last 3 Encounters: 07/04/21 98% 06/19/19 99% 06/09/19 100% PHYSICAL EXAM: Focused provider physical to be completed on the day of this procedure General: Patient appears healthy, well developed, well nourished, in no acute distress Head: atraumatic and normocephalic Neuro: alert, oriented appropriately for age Eyes: sclera and conjunctiva clear Ears: normal, tragus nontender Nose: nares patent without discharge Dentition: intact Throat: oropharynx is poorly visualized, mucous membranes are pink and moist without lesions Neck: there is full range of motion Chest: even and unlabored, Breast deferred due to telehealth Cardiac: deferred Abdomen: nontender and nondistended Back: deferred : deferred Skin: pink, warm, well perfused Lymphatic: not examined Musculoskeletal: normal tone, moves all extremities equally with full range of motion DIAGNOSTIC STUDIES REVIEWED: The following lab results have been ordered/reviewed. POCT HCG ordered for preop Calcium Date Value Ref Range Status 06/19/2019 8.5 7.6 - 11.0 mg/dL Final Carbon Dioxide Date Value Ref Range Status 06/19/2019 23.2 22.0 - 29.0 mEq/L Final Chloride Date Value Ref Range Status 06/19/2019 106 96 - 108 mEq/L Final Creatinine Date Value Ref Range Status 06/19/2019 0.78 0.50 - 1.00 mg/dL Final Comment: Premature 0.3-1.0 mg/dL Glucose Date Value Ref Range Status 06/19/2019 86 70 - 99 mg/dL Final Comment: Criteria for Diagnosis of Diabetes(Effective 09/23/10): Fasting specimen (no caloric intake for at least 8 hours). <100 mg/dl Normal 100-125 mg/dl Increased Risk for Diabetes >125 mg/dl Diagnostic for Diabetes Random Glucose (any time of day without regard to last meal). >=200 mg/dl plus Classic Symptoms of Diabetes Potassium Date Value Ref Range Status 06/19/2019 3.8 3.3 - 5.1 mEq/L Final Sodium Date Value Ref Range Status 06/19/2019 136 133 - 145 mEq/L Final BUN Date Value Ref Range Status 06/19/2019 14 4 - 19 mg/dL Final RBC Date Value Ref Range Status 06/19/2019 4.42 4.10 - 4.80 10E12/L Final RDW Date Value Ref Range Status 06/19/2019 14.0 0.0 - 14.4 % Final WBC Date Value Ref Range Status 06/19/2019 7.6 4.5 - 13.0 10E9/L Final Hematocrit Date Value Ref Range Status 06/19/2019 39.7 37.0 - 46.0 % Final Hemoglobin Date Value Ref Range Status 06/19/2019 13.4 12.0 - 15.0 g/dl Final MCH Date Value Ref Range Status 06/19/2019 30.3 25.0 - 35.0 pg Final MCHC Date Value Ref Range Status 06/19/2019 33.8 31.0 - 37.0 % Final MCV Date Value Ref Range Status 06/19/2019 89.8 78.0 - 96.0 fl Final MPV Date Value Ref Range Status 06/19/2019 9.8 fl Final Comment: MPV is platelet range and age dependent % Eosinophils Date Value Ref Range Status 06/19/2019 5.30 (H) 0.00 - 3.00 % Final % Monocytes Date Value Ref Range Status 06/19/2019 6.00 3.00 - 6.00 % Final % Neutrophils Date Value Ref Range Status 06/19/2019 46.5 34.0 - 64.0 % Final Neutrophil # Date Value Ref Range Status 06/19/2019 3.5 10E3/uL Final Hemoglobin Date Value Ref Range Status 06/19/2019 13.4 12.0 - 15.0 g/dl Final No results found for: APTT, INR TSH Date Value Ref Range Status 04/08/2019 2.419 0.350 - 5.500 uIU/mL Final HCG,Urine Date Value Ref Range Status 06/19/2019 Negative mIU/mL Final Comment: Non females and males-Negative females-Positive No results found for: HCGSERUM ASSESSMENT: Patient Active Problem List Diagnosis Abdominal pain Depression Anxiety Migraine with aura, intractable, with status migrainosus Migraine without aura, intractable, with status migrainosus Macromastia Ptosis of both breasts IBS (irritable bowel syndrome) Eczema Yuliya Phan is a 16 y.o. female with macromastia and ptosis of breasts. [facility] physical examination limited due to telehealth via video encounter. Pertinent and/or unperformed aspects ofphysical exam due to these limitations will be performed and/or addended by attending provider/anesthesia on day of surgery. Family instructed to contact the surgery center/PSH if any changes occur since this evaluation. PLAN: Surgery as scheduled Patient/family education Instructed to stop ibuprofen, multivitamins and herbal supplements now until after surgery Advised patient and mother to call if her condition changes Vaccines can be given up to 3 days prior to surgery or wait until after. Tylenol ordered to be given in preop Diet restrictions for DOS reviewed with family Family aware of visitation policy POCT HCG ordered for preop Care coordination: Allyn Hernandez APRN-CNP OTHER FINDINGS OR COMMENTS: Cc: Allyn Hernandez APRN-* CM Aguero 04/11/2022 10:10 AM This visit was conducted via telehealth. I spent 40 minutes with patient/family and performing chart review for this consult. Counseling and/or coordination of care was greater than 50% of the total time spent on the encounter. [facility]12-28-2022 History and physical note* Klaus Moscoso MD - 04/16/2022 10:34 AM EST H&P reviewed, patient examined, no changes have occured since H&P completed. Seen and examined. I haven't seen her since April 2021. She has gotten a little bigger. We discussed techniques and she wants to go with [place] pattern. She has been on OC. We discussed the risks of clotting. We discussed the preop expectations, technique of the reduction mammaplasties, postop care, follow up schedule, and risks, benefits, and alternatives. Risks include pain, bleeding, infection, seroma, hematoma, fat necrosis, abnormal breast pathology, nipple sensory loss, nipple necrosis, need for free nipple graft, asymmetry, delayed wound healing, hypertrophic scarring, keloids, need for revision surgery, inability to breast feed in the future, DVT/PE, and risk of anesthesia. All questions answered. Informed consent obtained. Mom present. Klaus Moscoso MD 04/16/2022 Source Note - Kerri Yu APRN-CNP - 04/11/2022 10:00 AM EST PRE-OP CONSULTATION This is a telemedicine video visit requested by the patient/guardian that was performed with the patient's location at home and the provider's location at office. DATE OF SERVICE: 04/11/2022 ASSISTANT BROKER PROVIDER: CM Aguero SURGICAL DIAGNOSIS: macromastia Proposed surgery date: 04/16/2022 Proposed surgical procedure: bilateral reduction mammoplasties Advice/opinion was requested by Allyn Hernandez APRN-Yovany for pre-surgical consultation. CHIEF COMPLAINT: enlarged breasts HISTORY OF PRESENT ILLNESS: Yuliya Phan is a 16 y.o. female who is being consulted via telehealth/video for perioperative evaluation. Patient has a history of migraines, anxiety, depression, GERD as well as anxiety and depression. She has had rapid growth of her breast since an early age. She has chronic back and s houlder pain due to this. Her breast size interferes with soccer that she is planning to play through college. She has tried PT and a chiropractor with minimal improvement. The history is provided bythe mother and a chart review for evaluation for surgical risk factors. MEDICAL/SURGICAL HISTORY: Past Medical History: Diagnosis Date Anxiety Depression Eczema Functional abdominal pain syndrome Uncomplicated asthma last use ~ 06/15/18 felt tight,She never had to use oral steroids, is off inhaled steroid Past Surgical History: Procedure Laterality Date COLONOSCOPY N/A 06/29/2018 COLONOSCOPY + biopsies performed by Rashmi Rodgers MD at [facility] OR TONSILLECTOMY TONSILLECTOMY AND ADENOIDECTOMY UPPER GASTROINTESTINAL ENDOSCOPY N/A 06/29/2018 ENDOSCOPY UPPER (FLEXIBLE) + biopsies performed by Rashmi Rodgers MD at [facility] OR Past hospitalizations: no DRUG/FOOD ALLERGIES: Allergies Allergen Reactions Amitriptyline Other (See Comments) Gets aggressive Apple Juice [Apple] Diarrhea Benadryl [Diphenhydramine] Other (See Comments) agitation Chicken Allergy Diarrhea Valproic Acid Rash MEDICATIONS: Outpatient Encounter Medications as of 04/11/2022 Medication Sig Dispense Refill levonorgestrel-ethinyl estradiol (SRONYX) 0.1-20 MG-MCG per tablet Take 1 Tablet by mouth daily gabapentin (NEURONTIN) 300 MG capsule Take 1 Capsule (300 mg) by mouth 2 times daily 60 Capsule 5 ondansetron (ZOFRAN-ODT) 4 MG disintegrating tablet Take 1 Tablet (4 mg) by mouth every 8 hours as needed for Nausea 45 Tablet 2 cyproheptadine (PERIACTIN) 4 MG tablet TAKE 1.5 TAB ETS BY MOUTH EVERY DAY BEDTIME 45 Tablet 6 Clascoterone (WINLEVI) 1 % CREA Apply to affected area Ubrogepant 100 MG TABS Take one at onset of migraine. Repeat once if no better in 2 hours. 10 Tablet 5 Magnesium Oxide (MAG OX) 400 (241.3 Mg) MG TABS tablet Take 1 Tablet (400 mg) by mouth daily 30 Tablet 11 vitamin B-2 (RIBOFLAVIN) 100 MG tablet Take 2 Tablets (200 mg) by mouth 2 times daily 120 Tablet 11 [DISCONTINUED] norethindrone-ethinyl estradiol (ORTHO-NOVUM 1-35 TAB) 1-35 MG- MCG per tablet Take by mouth daily pantoprazole (PROTONIX) 20 MG EC tablet Take 1 Tablet (20 mg) by mouth daily 90 Tablet 3 triamcinolone (KENALOG) 0.1 % cream Apply to affected area 3 times daily As needed 2 weeks on and 2weeks off acetaminophen (TYLENOL) 500 MG tablet Take 1 Tablet (500 mg) by mouth every 6 hours as needed for Pain busPIRone (BUSPAR) 10 MG tablet Take 1 Tablet (10 mg) by mouth 2 times daily sertraline (ZOLOFT) 100 MG tablet Take 1.5 Tablets (150 mg) by mouth melatonin 3 MG tablet Take one tablet at night 30 Tablet 1 dicyclomine (BENTYL) 10 MG capsule Take 2 Capsules (20 mg) by mouth 3 times daily as needed (pain) 120 Capsule 3 DUPIXENT 300 MG/2ML SOSY docusate sodium (COLACE) 100 MG CAPS capsule Take 1 Cap (100 mg) by mouth 2 times daily 60 Cap 5 Multiple Vitamins-Iron (MULTIVITAMIN/IRON PO) Take by mouth daily Lactobacillus (PROBIOTIC ACIDOPHILUS PO) Take by mouth daily fluticasone (FLONASE) 50 MCG/ACT nasal spray 2 Sprays by Each Nare route as needed for Allergies albuterol (PROAIR RESPICLICK) 108 (90 Base) MCG/ACT inhaler Inhale into the lungs every 6 hours as needed for Wheezing fexofenadine (BRI) 180 MG tablet Take 1 Tablet (180 mg) by mouth daily [DISCONTINUED] acetaminophen (TYLENOL) 500 MG tablet Take 2 Tablets (1,000 mg) by mouth every 6 hours as needed (Patient not taking: Reported on 04/11/2022) [DISCONTINUED] spironolactone (ALDACTONE) 50 MG Take 50 mg by mouth At bedtime [DISCONTINUED] Ubrogepant (UBRELVY) 50 MG TABS Take 50 mg within 30 minutes of migraine onset, if no better in 2 hours can take another 50 mg 12 Tablet 3 [DISCONTINUED] Magnesium Oxide (MAG OX) 400 (241.3 Mg) MG TABS tablet Take one tablet daily 90 Tablet 3 [DISCONTINUED] vitamin B-2 (RIBOFLAVIN) 100 MG capsule Take 2 Capsules (200 mg) by mouth 2 times daily 360 Capsule 3 No facility-administered encounter medications on file as of 04/11/2022. ANESTHESIA HISTORY: Difficulty with anesthesia? No Family history of difficulty with anesthesia? no Signs/symptoms of TERRENCE? no BLEEDING HISTORY: History of bleeding issues in patient? no Bleeding problems in family? no History of anemia in patient? no Sickle Cell issues in patient or family? N/A REVIEW OF SYSTEMS: Comprehensive review of systems: History obtained from Mother and the patient. General ROS: negative Psychological ROS: positive for - anxiety and depression Respiratory ROS: no cough, shortness of breath, or wheezing Cardiovascular ROS: no chest pain or dyspnea on exertion Musculoskeletal ROS: positive for - back and shoulder pain Neurological ROS: positive for - migraines Breast ROS: macromastia and ptosis A complete ROS was performed. Pertinent positives have been documented above or are in the HPI. Allother systems were negative. Recent Illnesses? no HISTORY: Noncontributory DEVELOPMENTAL HISTORY: Milestones: Not pertinent IMMUNIZATIONS: Stated as up to date, no records available SOCIAL/FAMILY HISTORY: Yuliya lives with parents and one brother Special Needs: None Preferred Language: Estonian Daycare: no School: College Smoking/Alcohol/Drug Use or Exposure: None Family History Problem Relation Age of Onset Irritable Bowel Syndrome Mother Post-op N/V Mother Irritable Bowel Syndrome Maternal Uncle Irritable Bowel Syndrome Maternal Grandmother Other Father delayed awakening Anesth Problems Neg Hx Bleeding Problem Neg Hx Amblyopia Neg Hx ChildHD Glaucoma Neg Hx ChildHD Cataract Neg Hx Glasses BF 4 Y/O Neg Hx Ptosis Neg Hx Strabismus Neg Hx VITAL SIGNS: Temp and weight obtained via home equipment/family during this Telehealth visit. Completed set of vital signs to be completed on the day of this procedure. Vitals: 04/11/22 0958 Temp: 36.4 C (97.6 F) Ht Readings from Last 1 Encounters: 10/25/21 166.4 cm (69 %, Z= 0.50)* * Growth percentiles are based on CDC (Girls, 2-20 Years) data. Wt Readings from Last 1 Encounters: 04/11/22 75.5 kg (91 %, Z= 1.36)* * Growth percentiles are based on CDC (Girls, 2-20 Years) data. No height and weight on file for this encounter. SpO2 Readings from Last 3 Encounters: 07/04/21 98% 06/19/19 99% 06/09/19 100% PHYSICAL EXAM: Focused provider physical to be completed on the day of this procedure General: Patient appears healthy, well developed, well nourished, in no acute distress Head: atraumatic and normocephalic Neuro: alert, oriented appropriately for age Eyes: sclera and conjunctiva clear Ears: normal, tragus nontender Nose: nares patent without discharge Dentition: intact Throat: oropharynx is poorly visualized, mucous membranes are pink and moist without lesions Neck: there is full range of motion Chest: even and unlabored, Breast deferred due to telehealth Cardiac: deferred Abdomen: nontender and nondistended Back: deferred : deferred Skin: pink, warm, well perfused Lymphatic: not examined Musculoskeletal: normal tone, moves all extremities equally with full range of motion DIAGNOSTIC STUDIES REVIEWED: The following lab results have been ordered/reviewed. POCT HCG ordered for preop Calcium Date Value Ref Range Status 06/19/2019 8.5 7.6 - 11.0 mg/dL Final Carbon Dioxide Date Value Ref Range Status 06/19/2019 23.2 22.0 - 29.0 mEq/L Final Chloride Date Value Ref Range Status 06/19/2019 106 96 - 108 mEq/L Final Creatinine Date Value Ref Range Status 06/19/2019 0.78 0.50 - 1.00 mg/dL Final Comment: Premature 0.3-1.0 mg/dL Glucose Date Value Ref Range Status 06/19/2019 86 70 - 99 mg/dL Final Comment: Criteria for Diagnosis of Diabetes(Effective 09/23/10): Fasting specimen (no caloric intake for at least 8 hours). <100 mg/dl Normal 100-125 mg/dl Increased Risk for Diabetes >125 mg/dl Diagnostic for Diabetes Random Glucose (any time of day without regard to last meal). >=200 mg/dl plus Classic Symptoms of Diabetes Potassium Date Value Ref Range Status 06/19/2019 3.8 3.3 - 5.1 mEq/L Final Sodium Date Value Ref Range Status 06/19/2019 136 133 - 145 mEq/L Final BUN Date Value Ref Range Status 06/19/2019 14 4 - 19 mg/dL Final RBC Date Value Ref Range Status 06/19/2019 4.42 4.10 - 4.80 10E12/L Final RDW Date Value Ref Range Status 06/19/2019 14.0 0.0 - 14.4 % Final WBC Date Value Ref Range Status 06/19/2019 7.6 4.5 - 13.0 10E9/L Final Hematocrit Date Value Ref Range Status 06/19/2019 39.7 37.0 - 46.0 % Final Hemoglobin Date Value Ref Range Status 06/19/2019 13.4 12.0 - 15.0 g/dl Final MCH Date Value Ref Range Status 06/19/2019 30.3 25.0 - 35.0 pg Final MCHC Date Value Ref Range Status 06/19/2019 33.8 31.0 - 37.0 % Final MCV Date Value Ref Range Status 06/19/2019 89.8 78.0 - 96.0 fl Final MPV Date Value Ref Range Status 06/19/2019 9.8 fl Final Comment: MPV is platelet range and age dependent % Eosinophils Date Value Ref Range Status 06/19/2019 5.30 (H) 0.00 - 3.00 % Final % Monocytes Date Value Ref Range Status 06/19/2019 6.00 3.00 - 6.00 % Final % Neutrophils Date Value Ref Range Status 06/19/2019 46.5 34.0 - 64.0 % Final Neutrophil # Date Value Ref Range Status 06/19/2019 3.5 10E3/uL Final Hemoglobin Date Value Ref Range Status 06/19/2019 13.4 12.0 - 15.0 g/dl Final No results found for: APTT, INR TSH Date Value Ref Range Status 04/08/2019 2.419 0.350 - 5.500 uIU/mL Final HCG,Urine Date Value Ref Range Status 06/19/2019 Negative mIU/mL Final Comment: Non females and males-Negative females-Positive No results found for: HCGSERUM ASSESSMENT: Patient Active Problem List Diagnosis Abdominal pain Depression Anxiety Migraine with aura, intractable, with status migrainosus Migraine without aura, intractable, with status migrainosus Macromastia Ptosis of both breasts IBS (irritable bowel syndrome) Eczema Yuliya Phan is a 16 y.o. female with macromastia and ptosis of breasts. [facility] physical examination limited due to telehealth via video encounter. Pertinent and/or unperformed aspects ofphysical exam due to these limitations will be performed and/or addended by attending provider/anesthesia on day of surgery. Family instructed to contact the surgery center/PS if any changes occur since this evaluation. PLAN: Surgery as scheduled Patient/family education Instructed to stop ibuprofen, multivitamins and herbal supplements now until after surgery Advised patient and mother to call if her condition changes Vaccines can be given up to 3 days prior to surgery or wait until after. Tylenol ordered to be given in preop Diet restrictions for DOS reviewed with family Family aware of visitation policy POCT HCG ordered for preop Care coordination: Allyn Hernandez APRN-CNP OTHER FINDINGS OR COMMENTS: Cc: Allyn Hernandez APRN-* CM Aguero 04/11/2022 10:10 AM This visit was conducted via telehealth. I spent 40 minutes with patient/family and performing chart review for this consult. Counseling and/or coordination of care was greater than 50% of the total time spent on the encounter. [facility]2022 NoteProcedure: CT of the abdomen and pelvis with contrast. Contrast: 100 mL Omnipaque 300 intravenously. No oral contrast Phase of contrast-enhancement: Portal venous. Reconstructed images: 5 mm axial, 3 mm coronal, and 3 mm sagittal. Clinical information: Abdominal pain, vomiting Comparison: None. Findings: Lower thorax: Negative. Stomach and duodenum: Opaque structures in the proximal stomach, most suggestive of pill fragments.No acute gastric findings. Negative duodenum. Liver: Decreased density. No focal acute lesion. 13 mm hemangioma at the falciform ligament. Gallbladder: No radiopaque stones or pericholecystic fluid. Biliary tree: No dilatation. Pancreas: Normal. Spleen: Normal. Adrenal glands: Normal. Kidneys/ureters: Normal. Symmetric renal enhancement. Bladder: Small volume and grossly negative. Reproductive organs: Anteflexed uterus. Minor follicles in the ovaries, no dominant cysts. Bowel: Normal caliber small bowel negative. Negative appendix. Moderate amount of stool especially in the sigmoid colon and rectum. No focal acute colonic lesion, no diverticula. Negative rectum. Peritoneum/retroperitoneum: No ascites, pneumoperitoneum, or pathologic lymph node enlargement. Aortoiliac arteries: Unremarkable. Bones: No acute fracture or destructive abnormality. Abdominal wall: Unremarkable. IMPRESSION: 1. There may be constipation. No gut obstruction. No acute colonic findings, no diverticula, negative appendix. 2. Fatty non enlarged liver. No focal acute liver lesion, one small hemangioma at the falciform ligament. Negative gallbladder. No biliary dilatation. 3. Rest of exam negative. Radiation Dose Estimate: CTDI(mGy):0.464450 / / / kVp:130.854492 / mAs:0.132943 / / / DLP(mGy- cm):6.910723Zzia Part: Abdomen CTDI(mGy):19.745920 / / / kVp:130.019392 / mAs:115.635057 / / / DLP(mGy- cm):933.190499Qfvv Part: Abdomen Final Dictated by: Antonia Medina MD Dictated DT/TM: 12.18.2021 10:57 am Signed by: Antonia Medina MD Signed (Electronic Signature): 12.18.2021 11:03 am (If Report Is Signed, Electronically Signed in Other Vendor System)[facility]03-30-2021 History of Present illness Narrative* Alfonso Perez MD - 07/17/2020 9:01 PM EDT DATE OF SERVICE: 07/17/2020 SUBJECTIVE: The patient is here with laceration above her left eye following an incident with a softball that struck her in the face. OBJECTIVE: Approximate 2.5 cm laceration noted above the left eyebrow. ASSESSMENT: Laceration. PLAN: The area was cleansed, numbed with 1% lidocaine, and sutured with 5-0 Ethilon x6 sutures. Wound is dressed. The patient is to have sutures removed in 7-10 days. She is to be checked if there is any increasing redness or pain. She will be having sutures removed at her physician over in [facility]. MD ILANA Park/[id number] SSI File#: [id number] END OF DOCUMENT / CHANGE LOG FOLLOWS Last Edited By Jayshree. Signed By Alfonso Perez MD #NICHOLASUTH Alfonso Perez MD #CORA on 07/25/2020 18:56 ET on 07/25/2020 18:56 ET Revision Number - 2 ^^^ Verified/Reviewed by 07/25/20 [facility] [place] [facility] PATIENT NAME: YULIYA PHAN MEDICAL REC #: [id number] [place], [place] ADMIT DATE: NGUYỄN STATCARE REPORT STATCARE PHYSICIAN documented in [facility]Mer[facility] note No data available for this section [facility] Evaluation + Plan note Future Appointments Appointment Date:11/15/2021 03:00:00 PM Scheduled Provider:YULIYA SORTO Location:[facility] Appointment Type:[facility] Evaluation + Plan note Future Appointments Appointment Date:11/25/2021 02:00:00 PM Scheduled Provider:YULIYA SORTO Location:[facility] Appointment Type:[facility] Evaluation noteNo assessment information available [facility] Work Phone: Evaluation note* Diagnosis Macromastia- Primary Hypertrophy of breast Pre-operative examination Preoperative examination, unspecified Macromastia Hypertrophy of breast documented in this encounter [facility] [facility] Diagnosis Gastroesophageal reflux disease without esophagitis Esophageal reflux [facility] No data available for this section [facility] Progress note No data available for this section [facility] Summary Purpose Family History No Family History Records Found Relationship Condition Age at Onset Recorded Date/T kym Not Specified Asthma Unknown Advance Directives No Advanced Directives Records Found Advance Directive Response Recorded Date/ Time Advance Directives No October 30 9:09am Living Will No June 05, 022 10:41am Power of Senior Investigator No June 05, 2021 10:41am Advance Directive Response Recorded Date/ Time Advance Directives No October 30 9:09am Living Will No January 10, 2023 2:36pm Power of Senior Investigator No December 2:36pm Chief Complaint and Reason for Visit Chief Complaint ABN UTERINE & VAGINA L BLEEDING Chief Complaint MIGRAINE Additional Source Comments INFORMATION SOURCE (unrecogn ized section and content) DATE CREATED AUTHOR 07/26/2020 [facility] Paola lopez [place] DATE CREATED AUTHOR AUTHOR'S ORGANIZ ATION 12/18/2021 [facility] DATE CREATED AUTHOR AUTHOR'S ORGANIZ ATION 02/17/[address] [facility] DATE CREATED AUTHOR AUTHOR'S ORGANIZ ATION 08/16/2022 [facility] ([place]) DATE CREATED AUTHOR AUTHOR'S ORGANIZ ATION 05/23/2023 [facility] DATE CREATED AUTHOR AUTHOR'S ORGANIZ ATION 12/08/2024 [facility] DATE CREATED AUTHOR AUTHOR'S ORGANIZ ATION 12/12/2024 [facility] Source Comments (unrecognize d section and content) In the event this informatio n is protected by the Federal Confidentiality of Alcohol and Drug Abuse Patient Records regulations: The Federal rules restrict any use of the information to criminally investigate or prosecute any alcohol or drug abuse patient.[facility] Care Teams (unrecognized sec tion and content) Email Marketing Coordinator Relationship Specialty Start Date End Date Panfilo Demian GordoDO [address] [place] [address] PCP - General Family Practice 04/10/13 Email Marketing Coordinator Relationship Specialty Start Date End Date Allyn Hernandez APRN-CNP [address] [place] [id number] PCP - General Family Medicine 06/19/19 Email Marketing Coordinator Relationship Specialty Start Date End Date Allyn Hernandez APRN-CNP [address] [place] [id number] PCP - General Family Medicine 06/19/19 Team Status: Active Member Role Status Dates Allyn Hernandez ASSISTANT BROKER, ASSISTANT BROKER-C Family Provider Active Allyn Hernandez ASSISTANT BROKER, ASSISTANT BROKER-C Primary Care Provider Active Team Status: Inactive Member Role Status Dates Allyn Hernandez ASSISTANT BROKER, ASSISTANT BROKER-C Primary Care Provider Active Dr. Brooks Romero MD Emergency Provider Active Care Team (unrecognized sect ion and content) Care Team Personnel Name: ALLYN HERNANDEZ SHELL REPRINT OPERATOR-BACKEND DEVELOPER Position: P4 Advanced Practice Nurse Med Service: Employed Provider Member Role: Primary Care Physician Address: Address: [address] [place] [phone] [place] Care Team Related Persons Name: KEVIN PHAN Address: Home [id number] [place] [phone] [place] Name: KEVIN PHAN Address: Home [id number] [place] [phone] Name: KEVIN PHAN Address: Home [address] [place], [place] [phone] [place] Name: KEVIN PHAN Address: Home [address] [place], [place] [phone] [place] Name: KEVIN PHAN Address: Home [address] [place], [place] [phone] [place] Name: RYANN PHAN Address: Home [address] [place], [place] [phone] [place] Address: Temporary [address] [place], [place] [phone] Name: RYANN PHAN Address: Home [address] [place], [place] [phone] [place] Name: RYANN PHAN Address: Home [address] [place], [place] [phone] Care Team Personnel Name: ALLYN HERNANDEZ Position: P4 Advanced Practice Nurse Med Service: Employed Provider Member Role: Primary Care Physician Address: Address: [address] [place] [address] [place] Care Team Related Persons Name: KEVIN PHAN Address: Home [address] [place], [place] [phone] [place] Name: KEVIN PHAN Address: Home [address] [place], [place] [id number] Name: KEVIN PHAN Address: Home [address] [place], [place] [phone] [place] Name: KEVIN PHAN Address: Home [address] [place], [place] [phone] [place] Name: KEVIN PHAN Address: Home [address] [place], [place] [phone] [place] Name: RYANN PHAN Address: Home [address] [place], [place] [phone] [place] Name: RYANN PHAN Address: Home [address] [place], [place] [phone] [place] Name: RYANN PHAN Address: Home [address] [place], [place] [phone] [place] Address: Temporary [address] [place], [place] [phone] Goals (unrecognized section and content) Goals may be documented in a n alternate section Reason for Visit (unrecogniz ed section and content) Specialty Diagnoses / Procedures Referred By Dany t Referred To Contact Diagnoses Macromastia Macromastia [[id number]] Procedures GA BREAST REDUCTION BREAST REDUCTION [place] [address] Referral ID Status Reason Start Date Expiration Date Visits Re quested Visits Authorized [id number] 1 1 Scheduled Active and Recently Administ ered Medications (unrecognized section and content) Medication Order 04/14/2022 04/15/2022 04/16/2022 acetaminophen (TYLENOL) tablet 1,000 mg (COMPLETED) 1,000 mg (13.2 mg/kg/DOSE), Oral, ONCE, 1 dose, On Thu04/16/22 at 0900, Pre-op 0914 (Given - Provid er: Zarina Yuen RN) PRN Medication Order 04/14/2022 04/15/2022 04/16/2022 EPINEPHrine 1 mL in NaCl 0.9% 1,000 mL (CANCELED) PRN, Starting on Thu04/16/22 at 1130, Intra-op 1130 (Given - Provid er: Klaus Moscoso MD - Comment: 20ml injected in either breast for total of 40cc injected) Lactated Ringers IV (CANCELED) CONTINUOUS PRN, Intravenous, Starting on Thu04/16/22 at 1145, Intra-op 1145 (New Bag - Prov ider: Kwasi Eid APRN-KITCHEN DESIGNER)1252 (New Bag - Provider: Kwasi Eid APRN-KITCHEN DESIGNER)1727 (Stopped - Provider: Kwasi Eid APRN-KITCHEN DESIGNER)1728 (Restarted from Bag - Provider: Mary Nicholson, AFSANEH)1832 (Stopped - Provider: Mary Nicholson RN) oxyCODONE (immediate release) (ROXICODONE) tablet 5 mg (CANCELED) 5 mg (0.0858 mg/kg/DOSE), Oral, ONCE PRN, Starting on Thu04/16/22 at 1726, Until Thu04/16/22 at 1807, Moderate Pain = Pain Score 4-6, Use oxycodone once tolerating oral intake prior to using IV narcotic., PACU 1753 (Given - Provid er: Mary Nicholson RN) FOR RECORDS PERTAINING TO PATIENTS WHO ARE OR HAVE BEEN ENROLLED IN A CHEMICAL DEPENDENCY/SUBSTANCEABUSE PROGRAM, SOME INFORMATION MAY BE OMITTED. This clinical summary was aggregated from multiple sources. Caution should be exercised in using it in the provision of clinical care. This summary normalizes information from multiple sources, and as a consequence, information in this document may materially change the coding, format and clinical context of patient data. In addition, data may be omitted in some cases. CLINICAL DECISIONS SHOULD BE BASED ON THE PRIMARY CLINICAL RECORDS. [facility]. provides no warranty or guarantee of the accuracy or completeness of information in this document.
[2025-01-21] MEDS: Ketorolac 30 MG/ML Syringe 15 MG IV (16:00)
[2025-01-21] MEDS: 0.9% Normal Saline (1000mL) 1,000 ML 1000 ML IV (16:02)
[2025-01-21 17:20] VITALS: BP 128/78; PULSE 112; RESP 16; O2SAT 99
== END 2025-01-21 17:21 | disposition home or self-care (01) ==
PROVIDERS: Emergency Provider Surgery; PCP Nurse Practitioner Primary Care; Visit Provider Surgery
DX: G43.909 Migraine, unspecified, not intractable, without status migrainosus (principal)
CPT/HCPCS: 96361; 96374; 96375; 99284; A4216; J3030